=== PATIENT | male | born 1980 | race Two or more races ===

== ENCOUNTER 2017-02-12 13:12 | Inpatient (IN) | payer OTHER ==
--- NOTE | 2017-02-12 13:47 | PN ---
[facility] Progress Note Note: 36 Y/O H/M "WALKED" INTO [facility] ADMISSION WAITING AREA AND BECAME VERY LETHARGIC, UNABLE TO STAND ON HIS FEET WITH DECREASED ALERTNESS. STATES HE IS HERE TO DETOX. RESPONDED ON COMMAND, VERY SLOWLY. PT HAS A HX OF SEIZURE AND ON KEPPRA. Vital Signs Temperature 99.2 F 02/12/17 13:48 Pulse Rate 96 H 02/12/17 13:48 Respiratory Rate 16 02/12/17 13:48 Blood Pressure 125/74 02/12/17 13:48 O2 Sat by Pulse Oximetry (%) 96 HEAD:AREA OF BRUISE WITH SOME SWELLING AND FRESH DRY BLOOD AT BACK OF HEAD. ZHANG=0.426 IMPRESSION: ALCOHOL INTOXICATION R/O HEAD TRUAMA PLAN:TRANSFER PT TO [facility] ER VIA AMBULANCE FOR EVALUATION AND TREATMENT. SPOKE WITH RAMSEY LANDA AT THE ER WHO WILL ACCEPT THE PATIENT.
--- NOTE | 2017-02-12 21:29 | HP ---
CIWA Score - CIWA Score Nausea/Vomitin-Mild Nausea/No Vomiting Muscle Tremors: 3 Anxiety: 2 Agitation: 2 Paroxysmal Sweats: 3 Orientation: 1-Uncertain about Date Tacttile Disturbances: 0-None Auditory Disturbances: 0-None Visual Disturbances: 0-None Headache: 3-Moderate CIWA-Ar Total Score: 15 Admission ROS BHS - HPI Chief Complaint: WITHDRAWAL SYMPTOMS Allergies/Adverse Reactions: Allergies Allergy/AdvReac Type Severity Reaction Status Date / Time No Known Allergies Allergy Verified 02/12/17 14:10 History of Present Illness: 36 Y.O. MAN RETURNS FROM [facility]. HE WAS BEING EVALUATED FOR A HEAD INJURY AFTER A RECENT FALL AND WAS MEDICALLY CLEARED TO INITIATE DETOX. THE PT. LAST COMPLETED DETOX HERE IN 06/2016. HE REPORTS HIS LONGEST PERIOD OF SOBRIETY HAS BEEN 1 YEAR. Exam Limitations: Intoxication - Ebola screening Have you traveled outside of the country in the last 21 days: No Have you had contact with anyone from an Ebola affected area: No Have you been sick,other than usual withdrawal symptoms: No Do you have a fever: No - Review of Systems Constitutional: Loss of Appetite, Unintentional Wgt. Loss EENT: reports: Blurred Vision, Tearing Respiratory: reports: No Symptoms reported Cardiac: reports: Palpitations GI: reports: Diarrhea, Poor Appetite : reports: No Symptoms Reported Musculoskeletal: reports: No Symptoms Reported Integumentary: reports: No Symptoms Reported Neuro: reports: Headache, Seizure (LAST SZ 1 YEAR AGO) Endocrine: reports: No Symptoms Reported Hematology: reports: No Symptoms Reported Psychiatric: reports: Depressed Other Systems: Reviewed and Negative Patient History - Patient Medical History Hx Anemia: No Hx Asthma: Yes (childhood asthma.) Hx Chronic Obstructive Pulmonary Disease (COPD): No Hx Cancer: No Hx Cardiac Disorders: No Hx Congestive Heart Failure: No Hx Hypertension: No Hx Hypercholesterolemia: No Hx Pacemaker: No HX Cerebrovascular Accident: Yes (MINI STROKE IN 2009 WITH SLIGHT WEAKNESS TO LEFT SIDE) Hx Seizures: Yes (seizure disorder on meds. Last in 01/28) Hx Dementia: No Hx Diabetes: No Hx Gastrointestinal Disorders: No Hx Liver Disease: No Hx Genitourinary Disorders: No Hx Sexually Transmitted Disorders: No Hx Renal Disease (ESRD): No Hx Thyroid Disease: No Hx Human Immunodeficiency Virus (HIV): No (NEGATIVE HX LAST 06/29) Hx Hepatitis C: No Hx Depression: Yes Hx Suicide Attempt: No Hx Bipolar Disorder: No Hx Schizophrenia: No - Patient Surgical History Past Surgical History: Yes Hx Neurologic Surgery: No Hx Cataract Extraction: No Hx Cardiac Surgery: No Hx Lung Surgery: No Hx Breast Surgery: No Hx Breast Biopsy: No Hx Abdominal Surgery: No Hx Appendectomy: No Hx Cholecystectomy: No Hx Genitourinary Surgery: No Hx Section: No Hx Orthopedic Surgery: No Other Surgical History: IVC filter in 2011 Anesthesia Reaction: No - PPD History Previous Implant?: Yes Documented Results: Negative w/proof Date: 06/21/15 Results: 0 mm PPD to be Administered?: Yes - Reproductive History Patient is a Female of Child Bearing Age (11 -55 yrs old): No - Smoking Cessation Smoking history: Current some day smoker Have you smoked in the past 12 months: No Aproximately how many cigarettes per day: 1 Hx Chewing Tobacco Use: No Initiated information on smoking cessation: Yes 'Breaking Loose' booklet given: 02/12/17 - Substance & Tx. History Hx Alcohol Use: Yes Hx Substance Use: No Substance Use Type: Alcohol Hx Substance Use Treatment: Yes (DETOX: 06/2015 REHAB: 07/2014) - Substances Abused Alcohol Route: Oral Frequency: Daily Amount used: 1 PINT OF LIQUOR Age of first use: 11 Date of Last Use: 02/12/17 Family Disease History - Family Disease History Family Disease History: Other: Grandparent (HTN) Admission Physical Exam BHS - Vital Signs Vital Signs: Vital Signs - 24 hr 02/12/17 13:48 Temperature 99.2 F Pulse Rate 96 H Respiratory 16 Rate Blood Pressure 125/74 - Physical General Appearance: Yes: Disheveled, Alcohol on Breath, Intoxicated, Tremorous, Sweating, Anxious HEENTM: Yes: Hearing grossly Normal, Normocephalic, Normal Voice Respiratory: Yes: Chest Non-Tender, Lungs Clear, Normal Breath Sounds, No Respiratory Distress, No Accessory Muscle Use Neck: Yes: No masses,lesions,Nodules, Trachea in good position Breast: Yes: Breast Exam Deferred Cardiology: Yes: Regular Rhythm, Regular Rate Abdominal: Yes: Non Tender, Flat, Soft Genitourinary: Yes: Other (NO COMPLAINTS REPORTED) Back: Yes: Normal Inspection Musculoskeletal: Yes: Other (UNSTEADY GAIT) Extremities: Yes: Normal Inspection, Normal Range of Motion, Tremors Neurological: Yes: Alert, Normal Response Integumentary: Yes: Normal Color, Dry, Warm Lymphatic: Yes: Within Normal Limits - Diagnostic (1) Alcohol dependence with uncomplicated withdrawal Current Visit: Yes Status: Chronic (2) History of pulmonary embolism Current Visit: Yes Status: Chronic (3) Intoxication Current Visit: Yes Status: Acute (4) Nicotine dependence Current Visit: Yes Status: Chronic (5) Old cerebrovascular accident (CVA) without late effect Current Visit: Yes Status: Inactive (6) S/P IVC filter Current Visit: Yes Status: Inactive (7) Seizure disorder Current Visit: Yes Status: Chronic (8) History of fall Current Visit: Yes Status: Acute Cleared for Admission [facility] - Detox or Rehab [facility] Level of Care: Medically Managed Detox Regimen/Protocol: Librium [facility] Breath Alcohol Content Breath Alcohol Content: 0.298
[2017-02-12 21:52] VITALS: BMI 28.3
[2017-02-12] MEDS ORDERED: P-EPHED 60MG/TRIPROLIDI 2.5MG TABLET PO PRN (21:57)
[2017-02-12] MEDS ORDERED: ACETAMINOPHEN 325 MG TABLET (FP) PO PRN (21:57)
[2017-02-12] MEDS ORDERED: chlordiazePOXIDE HCL 25 MG CAPSULE PO PRN (21:57)
[2017-02-12] MEDS ORDERED: MAG HYDROX/AL HYDROX/SIMETH 30 ML UNIT-DOSE CUP PO PRN (21:57)
[2017-02-12] MEDS ORDERED: hydrOXYzine PAMOATE 50 MG CAPSULE (FP) PO PRN (21:57)
[2017-02-12] MEDS ORDERED: guaiFENesin/D-METHORPHAN HB 10 ML UNIT-DOSE CUPS PO PRN (21:57)
[2017-02-12] MEDS ORDERED: diphenhydrAMINE HCL 50 MG CAPSULE PO PRN (21:57)
[2017-02-12] MEDS ORDERED: IBUPROFEN 400 MG TABLET (FP) PO PRN (21:57)
[2017-02-12] MEDS ORDERED: MAGNESIUM CITRATE 300 ML BOTTLE PO PRN (21:57)
[2017-02-12] MEDS ORDERED: MAGNESIUM HYDROX 2400MG/30ML ORAL SUSPENSION 30 ML CUP PO PRN (21:57)
[2017-02-12] MEDS ORDERED: chlordiazePOXIDE HCL 25 MG CAPSULE PO ONE (21:57)
[2017-02-12] MEDS ORDERED: NICOTINE POLACRILEX 2 MG GUM BC PRN (21:57)
[2017-02-12] MEDS ORDERED: MENTHOL/PHENOL 1 EACH UD MM PRN (21:57)
[2017-02-12] MEDS ORDERED: LOPERAMIDE HCL 2 MG CAPSULE PO PRN (21:57)
[2017-02-12] MEDS ORDERED: THIAMINE HCL 100 MG TABLET (FP) PO SCH (22:00)
[2017-02-12] MEDS: levETIRAcetam 500 MG TABLET (FP) PO SCH (23:23)
[2017-02-12] MEDS: chlordiazePOXIDE HCL 25 MG CAPSULE PO SCH (23:28)
[2017-02-13 00:30] LABS: URINE APPEARANCE CLEAR; URINE BILIRUBIN NEGATIVE (NEGATIVE); URINE BLOOD NEGATIVE (NEGATIVE); URINE COLOR LTYELLOW; URINE GLUCOSE (UA) NEGATIVE (NEGATIVE); URINE KETONE NEGATIVE (NEGATIVE); URINE LEUK ESTERASE NEGATIVE (NEGATIVE); URINE NITRITE NEGATIVE (NEGATIVE); URINE PROTEIN NEGATIVE (NEGATIVE); URINE UROBILINOGEN NEGATIVE mg/dL (0.2-1.0)
[2017-02-13] MEDS: chlordiazePOXIDE HCL 25 MG CAPSULE PO SCH ×2 (07:35→10:35)
--- NOTE | 2017-02-13 09:17 | EKG ---
Test Reason : Blood Pressure : / mmHG Vent. Rate : 098 BPM Atrial Rate : 098 BPM P-R Int : 130 ms QRS Dur : 074 ms QT Int : 332 ms P-R-T Axes : 056 021 021 degrees QTc Int : 423 ms NORMAL SINUS RHYTHM POSSIBLE LEFT ATRIAL ENLARGEMENT NONSPECIFIC T WAVE ABNORMALITY ABNORMAL ECG NO PREVIOUS ECGS AVAILABLE Confirmed by LONG SOLIZ MD ([id number]) on 02/13/2017 9:16:59 AM Referred By: Confirmed By:LONG SOLIZ MD
[2017-02-13] MEDS ORDERED: PRENATAL VITAMINS W/ FOLIC ACID TABLET (FP) PO SCH (10:00)
[2017-02-13 10:20] LABS: MCH 30.3 pg (25.7-33.7); MEAN CELL VOLUME 91.8 fl (80-96); MEAN PLT VOLUME 6.8 fl (7.5-11.1); PLATELET COUNT 428 K/MM3 (134-434); WHITE BLOOD COUNT 5.2 K/mm3 (4.0-10.0)
[2017-02-13] MEDS: levETIRAcetam 500 MG TABLET (FP) PO SCH (10:36)
[2017-02-13 10:52] LABS: ALBUMIN 3.8 g/dl (3.4-5.0); ALK PHOS 93 U/L (45-117); ANION GAP 9 (8-16); BILIRUBIN,TOTAL 0.3 mg/dL (0.2-1.0); CALCIUM 8.8 mg/dL (8.5-10.1); CO2 30 mmol/L (21-32); CREATININE 1.1 mg/dL (0.7-1.3); GLUCOSE,RANDOM 83 mg/dL (74-106); SGOT/AST 29 U/L (15-37); SGPT/ALT 56 U/L (12-78); TOT PROT 7.6 g/dl (6.4-8.2)
--- NOTE | 2017-02-13 11:13 | PN ---
S CIWA - CIWA Score Nausea/Vomitin Muscle Tremors: 4-Moderate,w/Arms Extend Anxiety: 3 Agitation: 3 Paroxysmal Sweats: 3 Orientation: 0-Oriented Tacttile Disturbances: 1-Very Mild Itch/Numbness Auditory Disturbances: 0-None Visual Disturbances: 0-None Headache: 1-Very Mild CIWA-Ar Total Score: 18 BHS Progress Note (SOAP) Subjective: nasuea, sweats, interrupted, sleep, anxeity, tremors Objective: 02/13/17 11:12 Vital Signs - 8 hr 02/13/17 02/13/17 02/13/17 04:00 06:36 09:43 Temperature 97.8 F 96.6 F L Pulse Rate 92 H 90 Respiratory 18 18 20 Rate Blood Pressure 106/64 130/73 Laboratory Tests 02/13/17 02/13/17 02/13/17 00:01 07:00 07:00 WBC 5.2 RBC 4.63 Hgb 14.0 Hct 42.5 MCV 91.8 MCH 30.3 MCHC 33.0 RDW 15.0 Plt Count 428 MPV 6.8 L Sodium 144 Potassium 4.3 Chloride 105 Carbon Dioxide 30 Anion Gap 9 BUN 10 Creatinine 1.1 Creat Clearance w eGFR > 60 Random Glucose 83 Calcium 8.8 Total Bilirubin 0.3 AST 29 ALT 56 Alkaline Phosphatase 93 Total Protein 7.6 Albumin 3.8 Urine Color Ltyellow Urine Appearance Clear Urine pH 6.0 Ur Specific [place] 1.015 Urine Protein Negative Urine Glucose (UA) Negative Urine Ketones Negative Urine Blood Negative Urine Nitrite Negative Urine Bilirubin Negative Urine Urobilinogen Negative Ur Leukocyte Esterase Negative Assessment: 02/13/17 11:13 withdrawal sx Plan: cont detox, fluids, encourage ambulation
--- NOTE | 2017-02-13 11:33 | CONSULT ---
[facility] Psychiatric Consult - Data Date of interview: 02/13/17 Admission source: [facility] Identifying data: Readmission to [facility] for this 36 y/o male seeking detox treatment on for alcohol dependence.Patient is single,a father of one,domiciled,unemployed and supported on welfare. Substance Abuse History: Confirmed by the patient in this interview. Smoking Cessation. Smoking history: Current some day smoker. Have you smoked in the past 12 months: No. Aproximately how many cigarettes per day: 1. Hx Chewing Tobacco Use: No. Initiated information on smoking cessation: Yes. 'Breaking Loose' booklet given: 02/12/17. - Substance & Tx. History. Hx Alcohol Use: Yes. Hx Substance Use: No. Substance Use Type: Alcohol. Hx Substance Use Treatment: Yes (DETOX: 06/2015 REHAB: 07/2014). - Substances Abused. Alcohol. Route: Oral. Frequency: Daily. Amount used: 1 PINT OF LIQUOR. Age of first use: 11. Date of Last Use: 02/12/17 Medical History: Remarkable for a history of mild CVA with left-sided weakness ( 2009),pulmonary embolism (IVC filter in place since 2011),seizure disorder and bronchial asthma. Psychiatric History: Diagnosed with MDD.Treated as an inpatient at [facility] (2012) and another institution (2014).Mr Hernandez gets psychiatric outpatient services at [facility].Managed with a regimen of effexor XR 150 mg po daily and remeron (dose unknown).Patient denies history of suicide attempts. Physical/Sexual Abuse/Trauma History: Patient denies. Mental Status Exam - Mental Status Exam Alert and Oriented to: Time, Place, Person Cognitive Function: Good Patient Appearance: Well Groomed Mood: Nervous, Withdrawn, Anxious Affect: Mood Congruent, Constricted Patient Behavior: Fatigued, Appropriate, Cooperative Speech Pattern: Clear Voice Loudness: Normal Thought Process: Goal Oriented Thought Disorder: Not Present Hallucinations: Denies Suicidal Ideation: Denies Homicidal Ideation: Denies Insight/Judgement: Poor Sleep: Poorly, Difficulty falling asleep Appetite: Good Muscle strength/Tone: Normal Gait/Station: Normal Psychiatric Findings - Problem List ([place] 1, 2,3) (1) Alcohol dependence with uncomplicated withdrawal Current Visit: Yes Status: Acute (2) Nicotine dependence Current Visit: Yes Status: Acute (3) MDD (major depressive disorder) Current Visit: Yes Status: Chronic (4) History of pulmonary embolism Current Visit: Yes Status: Chronic (5) Seizure disorder Current Visit: Yes Status: Chronic (6) Old cerebrovascular accident (CVA) without late effect Current Visit: Yes Status: Inactive (7) S/P IVC filter Current Visit: Yes Status: Inactive - Initial Treatment Plan Initial Treatment Plan: Psychoeducation.Detoxification in progress.Medications : effexor XR 75 mg po daily + remeron 15 mg po hs.Side effects/benefits discussed with patient.He agrees to follow this careplan.Pharmacy claims reviewed for verification of medications : last scripts for both drugs were issued on 07/19/16 at [facility] # [id number].Questionable adherence to OPD care/ medications.Observation.
--- NOTE | 2017-02-13 13:46 | PN ---
[facility] Progress Note Note: Patient refusing to stay and complete detox because he has family matters to attend to and will sign out AMA, risks and benefits of not completing detoxfication regimen as prescribed discussed with patient.
--- NOTE | 2017-02-13 13:52 | DS ---
[facility] Detox Discharge Summary Admission Date: 02/12/17 Discharge Date: 02/13/17 - History Present History: Alcohol Dependence Pertinent Past History: anxiety, depression, insomnia, nicotine dependence - Physical Exam Results Vital Signs: Vital Signs Temperature 96.6 F L 02/13/17 09:43 Pulse Rate 90 02/13/17 09:43 Respiratory Rate 20 02/13/17 09:43 Blood Pressure 130/73 02/13/17 09:43 O2 Sat by Pulse Oximetry (%) Pertinent Admission Physical Exam Findings: withdrawal sx - Treatment Hospital Course: Detox Protocol Followed, Detoxed Safely Patient has Accepted a Rehab Referral to: no - Medication Discharge Medications: Ambulatory Orders Folic Acid - 1 mg PO DAILY #30 tablet 07/24/14 Thiamine HCl [Vitamin B1 -] 100 mg PO HS #30 tablet 07/31/14 Venlafaxine HCl ER [Effexor Xr -] 150 mg PO DAILY #30 cap.er.24h 06/20/15 Aspirin [ASA -] 81 mg PO DAILY #30 tab.chew 06/23/15 Levetiracetam [Keppra -] 750 mg PO BID #60 tablet 06/23/15 Rivaroxaban [Xarelto -] 20 mg PO DAILY #30 tablet 06/23/15 Mirtazapine [Remeron -] 15 mg PO HS #30 tablet 02/13/17 Venlafaxine HCl ER [Effexor Xr -] 75 mg PO DAILY #30 cap.er.24h 02/13/17 - Diagnosis (1) Alcohol dependence with uncomplicated withdrawal Current Visit: Yes Status: Chronic (2) History of fall Current Visit: Yes Status: Acute (3) Intoxication Current Visit: Yes Status: Acute (4) Nicotine dependence Current Visit: Yes Status: Chronic Qualifiers: Nicotine product type: cigarettes (5) History of pulmonary embolism Current Visit: Yes Status: Chronic (6) MDD (major depressive disorder) Current Visit: Yes Status: Chronic (7) Seizure disorder Current Visit: Yes Status: Chronic (8) Old cerebrovascular accident (CVA) without late effect Current Visit: No Status: Chronic (9) S/P IVC filter Current Visit: No Status: Chronic (10) Insomnia Current Visit: No Status: Acute - AMA Did Patient Leave Against Medical Advice: Yes
[2017-02-13 14:25] VITALS: BP 115/78; PULSE 110; TEMP 99.5
[2017-02-13] MEDS ORDERED: MIRTAZAPINE 15 MG TABLET (FP) PO SCH (22:00)
[2017-02-13] MEDS ORDERED: chlordiazePOXIDE HCL 25 MG CAPSULE PO SCH (23:00)
[2017-02-14] MEDS ORDERED: VENLAFAXINE HCL 75 MG E.R. CAPSULES (FP) PO SCH (10:00)
[2017-02-14] MEDS ORDERED: chlordiazePOXIDE 5 MG CAPSULE PO SCH (23:00)
[2017-02-15] MEDS ORDERED: chlordiazePOXIDE HCL 10 MG CAPSULE PO SCH (23:00)
== END 2017-02-13 14:10 | disposition left against medical advice (07) | DRG 770 ==
LOC: YASAS 13:12 → Y3N 21:47
PROVIDERS: ADMIT Internal Medicine Addiction Medicine; ATTEND Internal Medicine Addiction Medicine
PROC: HZ2ZZZZ Detoxification Services for Substance Abuse Treatment (ICD-10-PCS; principal; 2017-02-13)
DX: F10.230 Alcohol dependence with withdrawal, uncomplicated (principal); F17.210 Nicotine dependence, cigarettes, uncomplicated; F33.9 Major depressive disorder, recurrent, unspecified; F41.8 Other specified anxiety disorders; G40.909 Epilepsy, unspecified, not intractable, without status epilepticus; I69.854 Hemiplegia and hemiparesis following other cerebrovascular disease affecting left non-dominant side; Z86.711 Personal history of pulmonary embolism; Z79.01 Long term (current) use of anticoagulants
CPT/HCPCS: 36415; 80053; 81003; 85027; 86593; 93005; 93010

== ENCOUNTER 2017-02-12 13:44 | Emergency (ER) | payer OTHER ==
[2017-02-12 14:10] VITALS: BMI 28.3
[2017-02-12] MEDS ORDERED: SODIUM CHLORIDE 0.9% 1000 ML INFUS.BAG IV ONE (14:18)
[2017-02-12 14:50] LABS: BASOPHIL 1.7 % (0-2.0); EOSINOPHIL 0.3 % (0-4.5); MCH 30.1 pg (25.7-33.7); MCHC 33.3 g/dl (32.0-35.9); MEAN CELL VOLUME 90.1 fl (80-96); MEAN PLT VOLUME 6.2 fl (7.5-11.1); NEUTROPHILS 49.5 % (42.8-82.8); PLATELET COUNT 417 K/MM3 (134-434); RDW 14.8 % (11.9-15.9); WHITE BLOOD COUNT 4.9 K/mm3 (4.0-10.0)
--- NOTE | 2017-02-12 15:03 | PDOC ---
History of Present Illness - General Chief Complaint: Alcohol intoxication Stated Complaint: INTOX Time Seen by Provider: 02/12/17 13:51 History Source: Patient Exam Limitations: Intoxication - History of Present Illness Initial Comments: 02/12/17 15:03 CC: Fall + Intoxication Patient is a 36 y.o. male with a PMH of Seizure disorder, h/o CVA (with residual R sided weakness) who presents from [facility] for a concern for head trauma. As per [facility], patient fell yesterday (02/11) however as per patient he fell 10 days previous. Patient cannot recall what he was doing prior to the fall and denies any pre-fall confusion, lightheadedness, diaphoresis, chest pain or shortness of breath. Past History - Past Medical History Allergies/Adverse Reactions: Allergies Allergy/AdvReac Type Severity Reaction Status Date / Time No Known Allergies Allergy Verified 02/12/17 14:10 Home Medications: Ambulatory Orders Folic Acid - 1 mg PO DAILY #30 tablet 07/24/14 Thiamine HCl [Vitamin B1 -] 100 mg PO HS #30 tablet 07/31/14 Venlafaxine HCl ER [Effexor Xr -] 150 mg PO DAILY #30 cap.er.24h 06/20/15 Aspirin [ASA -] 81 mg PO DAILY #30 tab.chew 06/23/15 Levetiracetam [Keppra -] 750 mg PO BID #60 tablet 06/23/15 Rivaroxaban [Xarelto -] 20 mg PO DAILY #30 tablet 06/23/15 Anemia: No Asthma: Yes (childhood asthma.) Cardiac Disorders: No CVA: Yes (MINI STROKE IN 2009 WITH SLIGHT WEAKNESS TO LEFT SIDE) COPD: No Dementia: No Diabetes: No GI Disorders: No Disorders: No HTN: No Hypercholesterolemia: No Kidney Stones: No Liver Disease: No Suicide Attempt (Hx): No Seizures: Yes (seizure disorder on meds. Last in 01/28) Thyroid Disease: No - Surgical History Abdominal Surgery: No Appendectomy: No Cardiac Surgery: No Cholecystectomy: No Lung Surgery: No Neurologic Surgery: No Orthopedic Surgery: No - Reproductive History Testicular Surgery: No - Psycho/Social/Smoking Cessation Hx Anxiety: Yes Suicidal Ideation: No Smoking History: Never smoked Have you smoked in the past 12 months: No Number of Cigarettes Smoked Daily: 1 'Breaking Loose' booklet given: 07/11/14 Hx Alcohol Use: Yes (vodka daily) Drug/Substance Use Hx: No Substance Use Type: Alcohol Hx Substance Use Treatment: Yes *Physical Exam - Vital Signs Last Vital Signs Temp Pulse Resp BP Pulse Ox 98.8 F 95 H 18 90/45 95 02/12/17 14:07 02/12/17 14:07 02/12/17 14:07 02/12/17 14:07 02/12/17 14:07 ED Treatment Course - LABORATORY CBC & Chemistry Diagram: 02/12/17 14:44 02/12/17 14:44 - ADDITIONAL ORDERS Additional order review: 02/12/17 14:44 RBC 4.60 MCV 90.1 MCHC 33.3 RDW 14.8 MPV 6.2 L D Neutrophils % 49.5 Lymphocytes % 43.2 H Monocytes % 5.3 Eosinophils % 0.3 Basophils % 1.7 - RADIOLOGY Radiology Studies Ordered: Category Date Time Status HEAD CT WITHOUT CONTRAST [CT] Stat CT Scan 02/12/17 14:13 Ordered Medical Decision Making - Medical Decision Making 02/12/17 18:45 Patient is a 36 y.o. male who presents from [facility] with a c/o recent fall. Patient is visibly intoxicated on PE (smells of alcohol, dysmetria, slurred speech) PLAN 1. CT Head 2. Ethanol Level 3. CBC, BMP CT head showed chronic subdural hematoma. Dr. Sapp, Neurosurgery,reviewed patient's CT scans and cleared patient for discharge to [facility] rehabilitation. As patient provided mixed history of fall and prior evaluation , [facility] ED was contacted *DC/Admit/Observation/Transfer Diagnosis at time of Disposition: Intoxication - Discharge Dispostion Disposition: RESIDENTIAL FACILITY Condition at time of disposition: Good Admit: No - Patient Instructions Additional Instructions: You were evaluated in the Emergency Department today for a fall. Please return to the Emergency Department should you experience chest pain, shortness of breath, confusion or severe headache.
[2017-02-12 15:16] LABS: ALBUMIN 4.3 g/dl (3.4-5.0); ALK PHOS 93 U/L (45-117); ANION GAP 10 (8-16); BILIRUBIN,TOTAL 0.3 mg/dL (0.2-1.0); CALCIUM 8.7 mg/dL (8.5-10.1); CO2 29 mmol/L (21-32); CREATININE 1.1 mg/dL (0.7-1.3); GLUCOSE,RANDOM 96 mg/dL (74-106); SGOT/AST 29 U/L (15-37); SGPT/ALT 61 U/L (12-78); TOT PROT 7.8 g/dl (6.4-8.2)
--- NOTE | 2017-02-12 17:46 | PDOC ---
History of Present Illness - General Chief Complaint: Alcohol intoxication Stated Complaint: INTOX Time Seen by Provider: 02/12/17 13:51 Past History - Past Medical History Allergies/Adverse Reactions: Allergies Allergy/AdvReac Type Severity Reaction Status Date / Time No Known Allergies Allergy Verified 02/12/17 14:10 Home Medications: Ambulatory Orders Folic Acid - 1 mg PO DAILY #30 tablet 07/24/14 Thiamine HCl [Vitamin B1 -] 100 mg PO HS #30 tablet 07/31/14 Venlafaxine HCl ER [Effexor Xr -] 150 mg PO DAILY #30 cap.er.24h 06/20/15 Aspirin [ASA -] 81 mg PO DAILY #30 tab.chew 06/23/15 Levetiracetam [Keppra -] 750 mg PO BID #60 tablet 06/23/15 Rivaroxaban [Xarelto -] 20 mg PO DAILY #30 tablet 06/23/15 Anemia: No Asthma: Yes (childhood asthma.) Cardiac Disorders: No CVA: Yes (MINI STROKE IN 2009 WITH SLIGHT WEAKNESS TO LEFT SIDE) COPD: No Dementia: No Diabetes: No GI Disorders: No Disorders: No HTN: No Hypercholesterolemia: No Kidney Stones: No Liver Disease: No Suicide Attempt (Hx): No Seizures: Yes (seizure disorder on meds. Last in 01/28) Thyroid Disease: No - Surgical History Abdominal Surgery: No Appendectomy: No Cardiac Surgery: No Cholecystectomy: No Lung Surgery: No Neurologic Surgery: No Orthopedic Surgery: No - Reproductive History Testicular Surgery: No - Psycho/Social/Smoking Cessation Hx Anxiety: Yes Suicidal Ideation: No Smoking History: Never smoked Have you smoked in the past 12 months: No Number of Cigarettes Smoked Daily: 1 'Breaking Loose' booklet given: 07/11/14 Hx Alcohol Use: Yes (vodka daily) Drug/Substance Use Hx: No Substance Use Type: Alcohol Hx Substance Use Treatment: Yes *Physical Exam - Vital Signs Last Vital Signs Temp Pulse Resp BP Pulse Ox 98.8 F 95 H 18 90/45 95 02/12/17 14:07 02/12/17 14:07 02/12/17 14:07 02/12/17 14:07 02/12/17 14:07
--- NOTE | 2017-02-12 18:04 | PDOC ---
Attending Attestation - Resident Resident Name: Lisa Judd - ED Attending Attestation I have performed the following: I have examined & evaluated the patient, The case was reviewed & discussed with the resident, I agree w/resident's findings & plan, Exceptions are as noted - HPI HPI: 02/12/17 18:13 36 M with h/o seizure d/o, ETOH abuse presents to ER with head injury. [facility], where he was going for detox from alcohol. Pt arrived intoxicated and found to have an abrasion on his head, so he was sent here for evaluation. Pt states that he fell 10 days ago and was initially evaluated at [facility], where he was told he had "bleeding" in his brain. Pt states that he was discharged. Denies any injuries since then. Pt denies SQUIRES/N/V. Denies weakness/numbness/tingling in any extremity. No slurred speech. Denies any recent seizures, no tongue biting, no incontinence. Pt reports drinking 1 pint vodka each day, last drank this morning. - Physicial Exam PE: 02/12/17 18:26 "GENERAL: Awake, intoxicated, in no acute distress HEAD: small abrasion posterior occiput EYES: PERRLA, EOMI, sclera anicteric, conjunctiva clear ENT: Auricles normal inspection, hearing grossly normal, nares patent, oropharynx clear without exudates. Moist mucosa NECK: Normal ROM, supple, no lymphadenopathy, JVD, or masses LUNGS: Breath sounds equal, clear to auscultation bilaterally. No wheezes, and no crackles HEART: Regular rate and rhythm, normal S1 and S2, no murmurs, rubs or gallops ABDOMEN: Soft, nontender, normoactive bowel sounds. No guarding, no rebound. No masses EXTREMITIES: Normal range of motion, no edema. No clubbing or cyanosis. No cords, erythema, or tenderness NEUROLOGICAL: Cranial nerves II through XII grossly intact. 5/5 strength and sensation in all extremities SKIN: Warm, Dry, normal turgor, no rashes or lesions noted. " - Medical Decision Making 02/12/17 18:27 36 M with seizure d/o and ETOH abuse presents to ER with head injury. - CTH shows subacute vs chronic subdural hematoma - Called [facility] ER, who report that pt was seen in their ER 2 days ago for fall and found to have a subdural. Pt was discharged. - Neurosurgeon pulmonary physical therapist, Dr. Elvis Beauchamp, who does not recommend any neurosurgical intervention at this time 02/12/17 18:49 Pt reassessed, is now awake, alert, and ambulatory without assistance. Pt has stable gait. Is eating meal tray and tolerating PO. Denies any SQUIRES/N/V. No signs of withdrawal. Pt clinically sober for DC. Will have security sales consultant pt back to [facility].
[2017-02-12 19:51] VITALS: BP 107/68; PULSE 76; TEMP 98.2
== END 2017-02-12 19:15 ==
LOC: JER 13:44
PROC: 3E0337Z Introduction of Electrolytic and Water Balance Substance into Peripheral Vein, Percutaneous Approach (ICD-10-PCS; principal; 2017-02-12)
DX: F10.120 Alcohol abuse with intoxication, uncomplicated (principal); J45.909 Unspecified asthma, uncomplicated; I69.398 Other sequelae of cerebral infarction
CPT/HCPCS: 36415; 70450-TC; 80053; 80185; 80307; 85025; 99283-25

== ENCOUNTER 2017-06-09 14:16 | Inpatient (IN) | payer OTHER ==
[2017-06-09 17:18] VITALS: BMI 28.3
--- NOTE | 2017-06-09 20:20 | HP ---
CIWA Score - CIWA Score Nausea/Vomitin Muscle Tremors: 5 Anxiety: 4-Mod. Anxious/Guarded Agitation: 4-Moderately Restless Paroxysmal Sweats: 3 Orientation: 0-Oriented Tacttile Disturbances: 3-Moderate Itch/Numb/Burn Auditory Disturbances: 0-None Visual Disturbances: 0-None Headache: 2-Mild CIWA-Ar Total Score: 24 Admission ROS BHS - HPI Chief Complaint: C/O WITHDRAWAL SX'S. SEEKING DETOX FOR HIS ALCOHOL DEPENDENCE. Allergies/Adverse Reactions: Allergies Allergy/AdvReac Type Severity Reaction Status Date / Time No Known Allergies Allergy Verified 06/09/17 19:02 History of Present Illness: 36 Y.O MALE WITH HX/O ETOH DEPENDENCE SEEKING DETOX. TXMENT. CLIENT IS KNOWN TO THIS DETOX. LAST HERE 02/2017. HE HAS BEEN REFERRED BY [facility] ER AFTER PRESENTING THERE WITH WITHDRAWAL SX'S. CLIENT DENIES ANY DETOX TXMENT SINCE HIS LAST ADMISSION HERE. REPORTS LONGEST CLEAN TIME 8 WEEKS.UTOX + BZO BUT CLIENT DENIES USE. Exam Limitations: Intoxication - Ebola screening Have you traveled outside of the country in the last 21 days: No Have you had contact with anyone from an Ebola affected area: No Have you been sick,other than usual withdrawal symptoms: No Do you have a fever: No - Review of Systems Constitutional: Chills, Loss of Appetite, Night Sweats, Changes in sleep EENT: reports: Blurred Vision (FAR SIDED) Respiratory: reports: No Symptoms reported Cardiac: reports: No Symptoms Reported GI: reports: Nausea, Poor Appetite, Poor Fluid Intake : reports: No Symptoms Reported Musculoskeletal: reports: No Symptoms Reported Integumentary: reports: No Symptoms Reported Neuro: reports: Seizure (R/T ETOH WITHDRAWAL) Endocrine: reports: No Symptoms Reported Hematology: reports: Blood Clots (HX/O PE IN 2008), Easy Bruising (R/T DRIKING AND HX/O XARELTO) Psychiatric: reports: Anxious, Depressed Other Systems: Reviewed and Negative Patient History - Patient Medical History Hx Anemia: No Hx Asthma: Yes (childhood asthma.) Hx Chronic Obstructive Pulmonary Disease (COPD): No Hx Cancer: No Hx Cardiac Disorders: No Hx Congestive Heart Failure: No Hx Hypertension: No Hx Hypercholesterolemia: No Hx Pacemaker: No HX Cerebrovascular Accident: Yes (MINI STROKE IN 2009 WITH SLIGHT WEAKNESS TO LEFT SIDE) Hx Seizures: Yes (ON KEPPRA) Hx Dementia: No Hx Diabetes: No Hx Gastrointestinal Disorders: No Hx Liver Disease: No Hx Genitourinary Disorders: No Hx Sexually Transmitted Disorders: No Hx Renal Disease (ESRD): No Hx Thyroid Disease: No Hx Human Immunodeficiency Virus (HIV): No Hx Hepatitis C: No Hx Depression: Yes (DENIES SI/HI) Hx Suicide Attempt: No Hx Bipolar Disorder: No Hx Schizophrenia: No Other Medical History: ANXIETY; HX/O OF PE X 3 - Patient Surgical History Past Surgical History: Yes Hx Neurologic Surgery: No Hx Cataract Extraction: No Hx Cardiac Surgery: Yes (IVC FILTER IN RT GROIN 2008) Hx Lung Surgery: No Hx Breast Surgery: No Hx Breast Biopsy: No Hx Abdominal Surgery: No Hx Appendectomy: No Hx Cholecystectomy: No Hx Genitourinary Surgery: No Hx Section: No Hx Orthopedic Surgery: No Other Surgical History: IVC filter in 2011 Anesthesia Reaction: No - PPD History Previous Implant?: Yes Documented Results: Negative w/proof Implanted On Prior [facility] Admission?: Yes Date: 03/13/17 Results: 0MM PPD to be Administered?: No - Smoking Cessation Smoking history: Never smoked Have you smoked in the past 12 months: No Aproximately how many cigarettes per day: 0 Cigars Per Day: 0 Hx Chewing Tobacco Use: No Initiated information on smoking cessation: No - Substance & Tx. History Hx Alcohol Use: Yes Hx Substance Use: Yes Substance Use Type: Alcohol Hx Substance Use Treatment: Yes ([facility]) - Substances Abused Alcohol Route: Oral Frequency: Daily Amount used: VODKA- 1 PT BEERS- 2BOTTLES Age of first use: 11 Date of Last Use: 06/09/17 Family Disease History - Family Disease History Family Disease History: Other: Grandparent (HTN), Father (alcphol,dsa,) Admission Physical Exam BHS - Vital Signs Vital Signs: Vital Signs - 24 hr 06/09/17 17:15 Temperature 97.2 F L Pulse Rate 98 H Respiratory 18 Rate Blood Pressure 115/71 - Physical General Appearance: Yes: Disheveled, Alcohol on Breath, Intoxicated, Tremorous, Sweating, Anxious, Other (MALODUROUS) HEENTM: Yes: EOMI, Normocephalic, BRUCE, Pharynx Normal, Other (MISSING TEETH) Respiratory: Yes: Chest Non-Tender, Lungs Clear, Normal Breath Sounds, No Respiratory Distress, No Accessory Muscle Use Neck: Yes: No masses,lesions,Nodules, Supple, Trachea in good position Breast: Yes: Breast Exam Deferred Cardiology: Yes: Regular Rhythm, S1, S2, Tachycardia Abdominal: Yes: Normal Bowel Sounds, Non Tender, Soft Genitourinary: Yes: Within Normal Limits Back: Yes: Normal Inspection Musculoskeletal: Yes: full range of Motion, Gait Steady Extremities: Yes: Normal Capillary Refill, Normal Range of Motion, Non-Tender, Tremors Neurological: Yes: services rep II-XII NML intact, Fully Oriented, Alert, Motor Strength 5/5 (L SIDED WEAKNESS), Other (S/P CVA WITH L SIDE WEAKNESS) Integumentary: Yes: Normal Color, Warm, Clammy Lymphatic: Yes: Within Normal Limits - Diagnostic (1) Alcohol dependence with uncomplicated withdrawal Current Visit: Yes Status: Chronic (2) Seizure disorder Current Visit: Yes Status: Chronic (3) Left-sided weakness Current Visit: Yes Status: Chronic (4) S/P IVC filter Current Visit: No Status: Chronic Cleared for Admission [facility] - Detox or Rehab [facility] Level of Care: Medically Managed Detox Regimen/Protocol: Librium Claeared for Rehab Admission: No [facility] Breath Alcohol Content Breath Alcohol Content: 0.287 Urine Drug Screen - Results Drug Screen Negative: No Urine Drug Screen Results: BZO-Benzodiazepines
[2017-06-09] MEDS ORDERED: ACETAMINOPHEN 325 MG TABLET (FP) PO PRN (20:35)
[2017-06-09] MEDS ORDERED: MENTHOL/PHENOL 1 EACH UD MM PRN (20:35)
[2017-06-09] MEDS ORDERED: MAGNESIUM HYDROX 2400MG/30ML ORAL SUSPENSION 30 ML CUP PO PRN (20:35)
[2017-06-09] MEDS ORDERED: IBUPROFEN 400 MG TABLET (FP) PO PRN (20:35)
[2017-06-09] MEDS ORDERED: guaiFENesin/D-METHORPHAN HB 10 ML UNIT-DOSE CUPS PO PRN (20:35)
[2017-06-09] MEDS ORDERED: MAGNESIUM CITRATE 300 ML BOTTLE PO PRN (20:35)
[2017-06-09] MEDS ORDERED: MAG HYDROX/AL HYDROX/SIMETH 30 ML UNIT-DOSE CUP PO PRN (20:35)
[2017-06-09] MEDS ORDERED: P-EPHED 60MG/TRIPROLIDI 2.5MG TABLET PO PRN (20:35)
[2017-06-09] MEDS ORDERED: LOPERAMIDE HCL 2 MG CAPSULE PO PRN (20:35)
[2017-06-09] MEDS ORDERED: chlordiazePOXIDE HCL 25 MG CAPSULE PO PRN (20:35)
[2017-06-09] MEDS: THIAMINE HCL 100 MG TABLET (FP) PO SCH (22:07)
[2017-06-09] MEDS: levETIRAcetam 500 MG TABLET (FP) PO SCH (22:07)
[2017-06-09] MEDS: chlordiazePOXIDE HCL 25 MG CAPSULE PO SCH (22:07)
[2017-06-09 23:23] LABS: URINE APPEARANCE CLEAR; URINE BILIRUBIN NEGATIVE (NEGATIVE); URINE BLOOD NEGATIVE (NEGATIVE); URINE COLOR LTYELLOW; URINE GLUCOSE (UA) 1+ (NEGATIVE); URINE KETONE NEGATIVE (NEGATIVE); URINE LEUK ESTERASE NEGATIVE (NEGATIVE); URINE NITRITE NEGATIVE (NEGATIVE); URINE PROTEIN NEGATIVE (NEGATIVE); URINE UROBILINOGEN NEGATIVE mg/dL (0.2-1.0)
[2017-06-10] MEDS: chlordiazePOXIDE HCL 25 MG CAPSULE PO SCH ×4 (05:23→22:15)
--- NOTE | 2017-06-10 07:41 | CONSULT ---
[facility] Psychiatric Consult - Data Date of interview: 06/10/17 Admission source: [facility] Identifying data: This is 36 years old male with psychioatric hospitalization history intoxicatyed with: Alcohol Substance Abuse History: - Smoking Cessation. Smoking history: Never smoked. Have you smoked in the past 12 months: No. Aproximately how many cigarettes per day: 0. Cigars Per Day: 0. Hx Chewing Tobacco Use: No. Initiated information on smoking cessation: No. - Substance & Tx. History. Hx Alcohol Use: Yes. Hx Substance Use: Yes. Substance Use Type: Alcohol. Hx Substance Use Treatment: Yes ([facility]). - Substances Abused. Alcohol. Route: Oral. Frequency: Daily. Amount used: VODKA- 1 PT BEERS- 2BOTTLES. Age of first use: 11. Date of Last Use: 06/09/17 Medical History: Patient reports history 9of Seizure, s/p IVC Filter installment Psychiatric History: Patoent reports history of mdd with most recent psyuchiatric hospitalization history on 2013 at [facility], denies suicidal attempts history. Reports taking prior to admission: Remeron 15mg po qhs. Effexor XR 150mg poqd Physical/Sexual Abuse/Trauma History: Denies Additional Comment: Remeron 15mg po qhs. Effexor XR 150mg poqd Mental Status Exam - Mental Status Exam Alert and Oriented to: Person Cognitive Function: Fair Patient Appearance: Unkempt Mood: Sad Affect: Flat Patient Behavior: Sedated Speech Pattern: Delayed Voice Loudness: Hypophonia Thought Process: Circumstantial Thought Disorder: Being Controlled Hallucinations: Denies Suicidal Ideation: Denies Homicidal Ideation: Denies Insight/Judgement: Fair Sleep: Difficulty falling asleep Appetite: Fair Muscle strength/Tone: Mild Hypotonicity Gait/Station: Shuffling Additional Comments: Remeron 15mg po qhs. Effexor XR 150mg poqd Psychiatric Findings - Problem List ([place] 1, 2,3) (1) Alcohol dependence with uncomplicated withdrawal Current Visit: Yes Status: Chronic (2) Alcohol dependence with uncomplicated intoxication Current Visit: No Status: Acute (3) Drug-induced mood disorder Current Visit: No Status: Acute (4) MDD (major depressive disorder) Current Visit: No Status: Chronic (5) Nicotine dependence Current Visit: No Status: Chronic Qualifiers: Nicotine product type: cigarettes (6) Old cerebrovascular accident (CVA) without late effect Current Visit: No Status: Chronic - Initial Treatment Plan Initial Treatment Plan: Remeron 15mg po qhs. Effexor XR 150mg poqd
--- NOTE | 2017-06-10 09:02 | PN ---
S CIWA - CIWA Score Nausea/Vomitin Muscle Tremors: 3 Anxiety: 3 Agitation: 3 Paroxysmal Sweats: 3 Orientation: 0-Oriented Tacttile Disturbances: 1-Very Mild Itch/Numbness Auditory Disturbances: 0-None Visual Disturbances: 0-None Headache: 1-Very Mild CIWA-Ar Total Score: 17 BHS Progress Note (SOAP) Subjective: nausea, sweats, interrutped sleep, anxiety, tremors Objective: 06/10/17 09:01 Vital Signs - 8 hr 06/10/17 06/10/17 06/10/17 01:30 02:00 02:30 Temperature Pulse Rate 92 H 91 H 91 H Respiratory 18 18 18 Rate Blood Pressure 06/10/17 06/10/17 06/10/17 03:00 03:30 04:00 Temperature Pulse Rate 90 90 93 H Respiratory 18 18 18 Rate Blood Pressure 06/10/17 06/10/17 06/10/17 04:30 05:00 05:30 Temperature Pulse Rate 93 H 86 86 Respiratory 18 18 18 Rate Blood Pressure 06/10/17 06/10/17 06/10/17 05:40 06:00 06:30 Temperature 97.6 F Pulse Rate 86 84 81 Respiratory 18 18 18 Rate Blood Pressure 112/65 Laboratory Tests 06/09/17 21:23 Urine Color Ltyellow Urine Appearance Clear Urine pH 5.0 Ur Specific [place] 1.031 Urine Protein Negative Urine Glucose (UA) 1+ H Urine Ketones Negative Urine Blood Negative Urine Nitrite Negative Urine Bilirubin Negative Urine Urobilinogen Negative labs still pending Assessment: 06/10/17 09:01 withdrawal sx - cont detox, fluids, encourage ambualtion
--- NOTE | 2017-06-10 10:09 | EKG ---
Test Reason : Blood Pressure : / mmHG Vent. Rate : 099 BPM Atrial Rate : 099 BPM P-R Int : 168 ms QRS Dur : 068 ms QT Int : 338 ms P-R-T Axes : 072 013 016 degrees QTc Int : 433 ms NORMAL SINUS RHYTHM POSSIBLE LEFT ATRIAL ENLARGEMENT SEPTAL INFARCT , AGE UNDETERMINED ABNORMAL ECG WHEN COMPARED WITH ECG OF 12-MAR-2017 08:22, VENT. RATE HAS INCREASED BY 36 BPM T WAVE INVERSION NO LONGER EVIDENT IN ANTERIOR LEADS Confirmed by CRYSTAL MERIDA MD ([id number]) on 06/10/2017 10:09:25 AM Referred By: Confirmed By:CRYSTAL MERIDA MD
[2017-06-10 10:11] LABS: ALBUMIN 3.6 g/dl (3.4-5.0); ANION GAP 8 (8-16); CALCIUM 9.2 mg/dL (8.5-10.1); CO2 28 mmol/L (21-32); GLUCOSE,RANDOM 72 mg/dL (74-106); SGOT/AST 26 U/L (15-37); SGPT/ALT 35 U/L (12-78)
[2017-06-10 10:14] LABS: ALK PHOS 81 U/L (45-117); BILIRUBIN,TOTAL 0.6 mg/dL (0.2-1.0); CREATININE 0.8 mg/dL (0.7-1.3); TOT PROT 7.1 g/dl (6.4-8.2)
[2017-06-10] MEDS: levETIRAcetam 500 MG TABLET (FP) PO SCH ×2 (10:36→22:15)
[2017-06-10] MEDS: VENLAFAXINE HCL 150 MG E.R. CAPSULE PO SCH (10:36)
[2017-06-10] MEDS: PRENATAL VITAMINS W/ FOLIC ACID TABLET (FP) PO SCH (10:37)
[2017-06-10] MEDS: ASPIRIN 81 MG CHEWABLE TABLETS PO SCH (10:37)
[2017-06-10 10:53] LABS: MCH 28.6 pg (25.7-33.7); MCHC 32.1 g/dl (32.0-35.9); MEAN PLT VOLUME 7.6 fl (7.5-11.1); PLATELET COUNT 286 K/MM3 (134-434); RDW 14.8 % (11.9-15.9); WHITE BLOOD COUNT 3.8 K/mm3 (4.0-10.0)
[2017-06-10 18:36] LABS: URINE LEUK ESTERASE Negative (NEGATIVE)
[2017-06-10] MEDS: MIRTAZAPINE 15 MG TABLET (FP) PO SCH (22:15)
[2017-06-10] MEDS: THIAMINE HCL 100 MG TABLET (FP) PO SCH (22:15)
[2017-06-11] MEDS: chlordiazePOXIDE HCL 25 MG CAPSULE PO SCH ×3 (05:49→17:49)
[2017-06-11] MEDS: ASPIRIN 81 MG CHEWABLE TABLETS PO SCH (10:13)
[2017-06-11] MEDS: VENLAFAXINE HCL 150 MG E.R. CAPSULE PO SCH (10:14)
[2017-06-11] MEDS: levETIRAcetam 500 MG TABLET (FP) PO SCH ×2 (10:14→22:32)
[2017-06-11] MEDS: PRENATAL VITAMINS W/ FOLIC ACID TABLET (FP) PO SCH (10:14)
--- NOTE | 2017-06-11 13:35 | PN ---
[facility] CIWA - CIWA Score Nausea/Vomitin Muscle Tremors: 3 Anxiety: 4-Mod. Anxious/Guarded Agitation: 4-Moderately Restless Paroxysmal Sweats: 3 Orientation: 0-Oriented Tacttile Disturbances: 0-None Auditory Disturbances: 0-None Visual Disturbances: 0-None Headache: 1-Very Mild CIWA-Ar Total Score: 17 BHS Progress Note (SOAP) Subjective: Sweating, nausea, anxious, tremor Objective: 06/11/17 13:33 Last Vital Signs Temp Pulse Resp BP Pulse Ox 96.9 F L 82 16 117/71 06/11/17 09:57 06/11/17 09:57 06/11/17 09:57 06/11/17 09:57 Laboratory Tests 06/09/17 06/10/17 06/10/17 21:23 07:54 07:54 WBC 3.8 L RBC 4.61 Hgb 13.2 Hct 41.1 MCV 89.0 MCH 28.6 MCHC 32.1 RDW 14.8 Plt Count 286 D MPV 7.6 Sodium 139 Potassium 3.9 Chloride 103 Carbon Dioxide 28 Anion Gap 8 BUN 7 D Creatinine 0.8 Creat Clearance w eGFR > 60 Random Glucose 72 L Calcium 9.2 Total Bilirubin 0.6 AST 26 ALT 35 Alkaline Phosphatase 81 Total Protein 7.1 Albumin 3.6 Urine Color Ltyellow Urine Appearance Clear Urine pH 5.0 Ur Specific [place] 1.031 Urine Protein Negative Urine Glucose (UA) 1+ H Urine Ketones Negative Urine Blood Negative Urine Nitrite Negative Urine Bilirubin Negative Urine Urobilinogen Negative Ur Leukocyte Esterase Negative RPR Titer 06/10/17 07:54 WBC RBC Hgb Hct MCV MCH MCHC RDW Plt Count MPV Sodium Potassium Chloride Carbon Dioxide Anion Gap BUN Creatinine Creat Clearance w eGFR Random Glucose Calcium Total Bilirubin AST ALT Alkaline Phosphatase Total Protein Albumin Urine Color Urine Appearance Urine pH Ur Specific [place] Urine Protein Urine Glucose (UA) Urine Ketones Urine Blood Urine Nitrite Urine Bilirubin Urine Urobilinogen Ur Leukocyte Esterase RPR Titer Nonreactive Labs noted Assessment: 06/11/17 13:33 Withdrawal symptoms Plan: Continue detox Encouraged to drink lots of water for hydration
[2017-06-11] MEDS: chlordiazePOXIDE 5 MG CAPSULE PO SCH (22:31)
[2017-06-11] MEDS: MIRTAZAPINE 15 MG TABLET (FP) PO SCH (22:32)
[2017-06-11] MEDS: THIAMINE HCL 100 MG TABLET (FP) PO SCH (22:32)
[2017-06-12] MEDS: chlordiazePOXIDE 5 MG CAPSULE PO SCH ×3 (06:15→17:33)
[2017-06-12] MEDS: VENLAFAXINE HCL 150 MG E.R. CAPSULE PO SCH (10:27)
[2017-06-12] MEDS: levETIRAcetam 500 MG TABLET (FP) PO SCH ×2 (10:27→22:18)
[2017-06-12] MEDS: ASPIRIN 81 MG CHEWABLE TABLETS PO SCH (10:27)
[2017-06-12] MEDS: PRENATAL VITAMINS W/ FOLIC ACID TABLET (FP) PO SCH (10:28)
--- NOTE | 2017-06-12 13:19 | PN ---
BHS Progress Note (SOAP) Subjective: Sweating, anxious, interrupted sleep Objective: 06/12/17 13:15 Last Vital Signs Temp Pulse Resp BP Pulse Ox 97.1 F L 82 18 118/75 06/12/17 10:00 06/12/17 10:00 06/12/17 10:00 06/12/17 10:00 Laboratory Tests 06/09/17 06/10/17 06/10/17 21:23 07:54 07:54 WBC 3.8 L RBC 4.61 Hgb 13.2 Hct 41.1 MCV 89.0 MCH 28.6 MCHC 32.1 RDW 14.8 Plt Count 286 D MPV 7.6 Sodium 139 Potassium 3.9 Chloride 103 Carbon Dioxide 28 Anion Gap 8 BUN 7 D Creatinine 0.8 Creat Clearance w eGFR > 60 Random Glucose 72 L Calcium 9.2 Total Bilirubin 0.6 AST 26 ALT 35 Alkaline Phosphatase 81 Total Protein 7.1 Albumin 3.6 Urine Color Ltyellow Urine Appearance Clear Urine pH 5.0 Ur Specific [place] 1.031 Urine Protein Negative Urine Glucose (UA) 1+ H Urine Ketones Negative Urine Blood Negative Urine Nitrite Negative Urine Bilirubin Negative Urine Urobilinogen Negative Ur Leukocyte Esterase Negative RPR Titer 06/10/17 07:54 WBC RBC Hgb Hct MCV MCH MCHC RDW Plt Count MPV Sodium Potassium Chloride Carbon Dioxide Anion Gap BUN Creatinine Creat Clearance w eGFR Random Glucose Calcium Total Bilirubin AST ALT Alkaline Phosphatase Total Protein Albumin Urine Color Urine Appearance Urine pH Ur Specific [place] Urine Protein Urine Glucose (UA) Urine Ketones Urine Blood Urine Nitrite Urine Bilirubin Urine Urobilinogen Ur Leukocyte Esterase RPR Titer Nonreactive Labs noted Assessment: 06/12/17 13:16 Withdrawal symptoms Plan: Continue detox Encouraged to drink lots of water
[2017-06-12] MEDS: THIAMINE HCL 100 MG TABLET (FP) PO SCH (22:17)
[2017-06-12] MEDS: chlordiazePOXIDE HCL 10 MG CAPSULE PO SCH (22:17)
[2017-06-12] MEDS: MIRTAZAPINE 15 MG TABLET (FP) PO SCH (22:18)
[2017-06-13] MEDS: chlordiazePOXIDE HCL 10 MG CAPSULE PO SCH ×2 (07:18→10:54)
[2017-06-13 10:46] VITALS: BP 119/71; PULSE 75; TEMP 95.9
[2017-06-13] MEDS: levETIRAcetam 500 MG TABLET (FP) PO SCH (10:52)
[2017-06-13] MEDS: ASPIRIN 81 MG CHEWABLE TABLETS PO SCH (10:52)
[2017-06-13] MEDS: PRENATAL VITAMINS W/ FOLIC ACID TABLET (FP) PO SCH (10:53)
[2017-06-13] MEDS: VENLAFAXINE HCL 150 MG E.R. CAPSULE PO SCH (10:53)
--- NOTE | 2017-06-13 11:44 | DS ---
[facility] Detox Discharge Summary Admission Date: 06/09/17 Discharge Date: 06/13/17 - History Present History: Alcohol Dependence Pertinent Past History: Asthma Seizures IVC filter to L groin - Physical Exam Results Vital Signs: Vital Signs Temperature 95.9 F L 06/13/17 10:00 Pulse Rate 75 06/13/17 10:00 Respiratory Rate 18 06/13/17 10:00 Blood Pressure 119/71 06/13/17 10:00 O2 Sat by Pulse Oximetry (%) Pertinent Admission Physical Exam Findings: Withdrawal symptoms Laboratory Last Values WBC 3.8 K/mm3 (4.0-10.0) L 06/10/17 07:54 RBC 4.61 M/mm3 (4.00-5.60) 06/10/17 07:54 Hgb 13.2 GM/dL (11.7-16.9) 06/10/17 07:54 Hct 41.1 % (35.4-49) 06/10/17 07:54 MCV 89.0 fl (80-96) 06/10/17 07:54 MCH 28.6 pg (25.7-33.7) 06/10/17 07:54 MCHC 32.1 g/dl (32.0-35.9) 06/10/17 07:54 RDW 14.8 % (11.9-15.9) 06/10/17 07:54 Plt Count 286 K/MM3 (134-434) D 06/10/17 07:54 MPV 7.6 fl (7.5-11.1) 06/10/17 07:54 Sodium 139 mmol/L (136-145) 06/10/17 07:54 Potassium 3.9 mmol/L (3.5-5.1) 06/10/17 07:54 Chloride 103 mmol/L (98-107) 06/10/17 07:54 Carbon Dioxide 28 mmol/L (21-32) 06/10/17 07:54 Anion Gap 8 (8-16) 06/10/17 07:54 BUN 7 mg/dL (7-18) D 06/10/17 07:54 Creatinine 0.8 mg/dL (0.7-1.3) 06/10/17 07:54 Creat Clearance w eGFR > 60 (>60) 06/10/17 07:54 Random Glucose 72 mg/dL (74-106) L 06/10/17 07:54 Calcium 9.2 mg/dL (8.5-10.1) 06/10/17 07:54 Total Bilirubin 0.6 mg/dL (0.2-1.0) 06/10/17 07:54 AST 26 U/L (15-37) 06/10/17 07:54 ALT 35 U/L (12-78) 06/10/17 07:54 Alkaline Phosphatase 81 U/L (45-117) 06/10/17 07:54 Total Protein 7.1 g/dl (6.4-8.2) 06/10/17 07:54 Albumin 3.6 g/dl (3.4-5.0) 06/10/17 07:54 Urine Color Ltyellow 06/09/17 21:23 Urine Appearance Clear 06/09/17 21:23 Urine pH 5.0 (5.0-8.0) 06/09/17 21:23 Ur Specific [place] 1.031 (1.001-1.035) 06/09/17 21:23 Urine Protein Negative (NEGATIVE) 06/09/17 21:23 Urine Glucose (UA) 1+ (NEGATIVE) H 06/09/17 21:23 Urine Ketones Negative (NEGATIVE) 06/09/17 21:23 Urine Blood Negative (NEGATIVE) 06/09/17 21:23 Urine Nitrite Negative (NEGATIVE) 06/09/17 21:23 Urine Bilirubin Negative (NEGATIVE) 06/09/17 21:23 Urine Urobilinogen Negative mg/dL (0.2-1.0) 06/09/17 21:23 Ur Leukocyte Esterase Negative (NEGATIVE) 06/09/17 21:23 RPR Titer Nonreactive (NONREACTIVE) 06/10/17 07:54 Labs noted - Treatment Hospital Course: Detox Protocol Followed, Detoxed Safely, Responded well, Discharged Condition Good Patient has Accepted a Rehab Referral to: / step program - Medication Discharge Medications: Ambulatory Orders Folic Acid - 1 mg PO DAILY #30 tablet 07/24/14 Aspirin [ASA -] 81 mg PO DAILY #30 tab.chew 06/23/15 Levetiracetam [Keppra -] 750 mg PO BID #60 tablet 06/23/15 Mirtazapine [Remeron -] 15 mg PO HS #30 tablet 02/13/17 Menthol/Phenol [Cepastat Lozenge -] 1 each MM Q4H PRN #30 ud 06/10/17 Venlafaxine HCl ER [Effexor Xr -] 150 mg PO DAILY #30 cap 06/10/17 - Diagnosis (1) Alcohol dependence with uncomplicated intoxication Current Visit: Yes Status: Acute (2) Seizure disorder Current Visit: Yes Status: Acute (3) Asthma Current Visit: Yes Status: Chronic (4) S/P IVC filter Current Visit: No Status: Chronic - AMA Did Patient Leave Against Medical Advice: No
--- NOTE | 2017-06-13 11:49 | DS ---
[facility] Detox Discharge Summary Admission Date: 06/09/17 Discharge Date: 06/13/17 - History Present History: Alcohol Dependence Pertinent Past History: Asthma Seizures IVC filter to R groin - Physical Exam Results Vital Signs: Vital Signs Temperature 95.9 F L 06/13/17 10:00 Pulse Rate 75 06/13/17 10:00 Respiratory Rate 18 06/13/17 10:00 Blood Pressure 119/71 06/13/17 10:00 O2 Sat by Pulse Oximetry (%) Pertinent Admission Physical Exam Findings: withdrawal sx Laboratory Last Values WBC 3.8 K/mm3 (4.0-10.0) L 06/10/17 07:54 RBC 4.61 M/mm3 (4.00-5.60) 06/10/17 07:54 Hgb 13.2 GM/dL (11.7-16.9) 06/10/17 07:54 Hct 41.1 % (35.4-49) 06/10/17 07:54 MCV 89.0 fl (80-96) 06/10/17 07:54 MCH 28.6 pg (25.7-33.7) 06/10/17 07:54 MCHC 32.1 g/dl (32.0-35.9) 06/10/17 07:54 RDW 14.8 % (11.9-15.9) 06/10/17 07:54 Plt Count 286 K/MM3 (134-434) D 06/10/17 07:54 MPV 7.6 fl (7.5-11.1) 06/10/17 07:54 Sodium 139 mmol/L (136-145) 06/10/17 07:54 Potassium 3.9 mmol/L (3.5-5.1) 06/10/17 07:54 Chloride 103 mmol/L (98-107) 06/10/17 07:54 Carbon Dioxide 28 mmol/L (21-32) 06/10/17 07:54 Anion Gap 8 (8-16) 06/10/17 07:54 BUN 7 mg/dL (7-18) D 06/10/17 07:54 Creatinine 0.8 mg/dL (0.7-1.3) 06/10/17 07:54 Creat Clearance w eGFR > 60 (>60) 06/10/17 07:54 Random Glucose 72 mg/dL (74-106) L 06/10/17 07:54 Calcium 9.2 mg/dL (8.5-10.1) 06/10/17 07:54 Total Bilirubin 0.6 mg/dL (0.2-1.0) 06/10/17 07:54 AST 26 U/L (15-37) 06/10/17 07:54 ALT 35 U/L (12-78) 06/10/17 07:54 Alkaline Phosphatase 81 U/L (45-117) 06/10/17 07:54 Total Protein 7.1 g/dl (6.4-8.2) 06/10/17 07:54 Albumin 3.6 g/dl (3.4-5.0) 06/10/17 07:54 Urine Color Ltyellow 06/09/17 21:23 Urine Appearance Clear 06/09/17 21:23 Urine pH 5.0 (5.0-8.0) 06/09/17 21:23 Ur Specific [place] 1.031 (1.001-1.035) 06/09/17 21:23 Urine Protein Negative (NEGATIVE) 06/09/17 21:23 Urine Glucose (UA) 1+ (NEGATIVE) H 06/09/17 21:23 Urine Ketones Negative (NEGATIVE) 06/09/17 21:23 Urine Blood Negative (NEGATIVE) 06/09/17 21:23 Urine Nitrite Negative (NEGATIVE) 06/09/17 21:23 Urine Bilirubin Negative (NEGATIVE) 06/09/17 21:23 Urine Urobilinogen Negative mg/dL (0.2-1.0) 06/09/17 21:23 Ur Leukocyte Esterase Negative (NEGATIVE) 06/09/17 21:23 RPR Titer Nonreactive (NONREACTIVE) 06/10/17 07:54 Labs noted - Treatment Hospital Course: Detox Protocol Followed, Detoxed Safely, Responded well, Discharged Condition Good Patient has Accepted a Rehab Referral to: / step program - Medication Discharge Medications: Ambulatory Orders Folic Acid - 1 mg PO DAILY #30 tablet 07/24/14 Aspirin [ASA -] 81 mg PO DAILY #30 tab.chew 06/23/15 Levetiracetam [Keppra -] 750 mg PO BID #60 tablet 06/23/15 Mirtazapine [Remeron -] 15 mg PO HS #30 tablet 02/13/17 Menthol/Phenol [Cepastat Lozenge -] 1 each MM Q4H PRN #30 ud 06/10/17 Venlafaxine HCl ER [Effexor Xr -] 150 mg PO DAILY #30 cap 06/10/17 - Diagnosis (1) Alcohol dependence with uncomplicated intoxication Current Visit: Yes Status: Acute (2) Seizure disorder Current Visit: Yes Status: Acute (3) Asthma Current Visit: Yes Status: Chronic (4) S/P IVC filter Current Visit: No Status: Chronic - AMA Did Patient Leave Against Medical Advice: No
== END 2017-06-13 11:11 | disposition home or self-care (01) | DRG 775 ==
LOC: YASAS 14:16 → Y6N 19:42
PROVIDERS: ADMIT Internal Medicine; ATTEND Internal Medicine
PROC: HZ2ZZZZ Detoxification Services for Substance Abuse Treatment (ICD-10-PCS; principal; 2017-06-09)
DX: F10.230 Alcohol dependence with withdrawal, uncomplicated (principal); F17.210 Nicotine dependence, cigarettes, uncomplicated; F41.9 Anxiety disorder, unspecified; F33.9 Major depressive disorder, recurrent, unspecified; F19.24 Other psychoactive substance dependence with psychoactive substance-induced mood disorder; G40.909 Epilepsy, unspecified, not intractable, without status epilepticus; J45.909 Unspecified asthma, uncomplicated; Z87.820 Personal history of traumatic brain injury; Z86.718 Personal history of other venous thrombosis and embolism; Z86.73 Personal history of transient ischemic attack (TIA), and cerebral infarction without residual deficits; Z95.828 Presence of other vascular implants and grafts
CPT/HCPCS: 36415; 80053; 81003; 85027; 86593; 93005; 93010

== ENCOUNTER 2017-07-08 08:43 | Inpatient (IN) | payer OTHER ==
[2017-07-08 10:34] VITALS: BMI 26.6
--- NOTE | 2017-07-08 14:10 | HP ---
Admission [facility] Allergies/Adverse Reactions: Allergies Allergy/AdvReac Type Severity Reaction Status Date / Time No Known Allergies Allergy Verified 07/08/17 11:02 History of Present Illness: 36 Y/O H/MALE WITH A HX OF ALCOHOL DEPENDENCE SEEKING DETOX TX. PT REPORTS HE WAS AT [facility] DUE TO ALCOHOL INTOXICATION, DISCHARGED AND SENT TO DETOX THIS MORNING. Exam Limitations: No Limitations, Intoxication (BUT ALERT O X 3.) - Ebola screening Have you traveled outside of the country in the last 21 days: No (N) Have you had contact with anyone from an Ebola affected area: No Have you been sick,other than usual withdrawal symptoms: No Do you have a fever: No - Review of Systems Constitutional: Chills, Loss of Appetite, Night Sweats, Changes in sleep, Unintentional Wgt. Loss EENT: reports: Blurred Vision (MISSING TEETH), Tearing, Nose Congestion Respiratory: reports: No Symptoms reported Cardiac: reports: Lightheadedness GI: reports: Diarrhea, Poor Appetite, Poor Fluid Intake : reports: No Symptoms Reported Musculoskeletal: reports: Back Pain, Joint Pain, Muscle Pain Integumentary: reports: Bruising (LEFT HAND DUE TO FALL IN SNOW THREE WEEKS AGO. WENT TO [facility] AND LATER TO [facility] WHERE THEY SAID "MY ARM(WRIST) WAS BROKEN". REPPORTS IT WAS CASTED BUT HE REMOVED IT A WEEK AGO BECAUSE "IT WAS UNCOMFORTABLE. I COULDN'T TAKE A SHOWER WITH THAT THING". REPORTS HAS ORTHOPEDIC FOLLOW UP APPOINTMENT ON JULY 17, 2017.), Dryness Neuro: reports: Headache, Seizure (LAST EPISODE IN JANUARY 2017.), Unsteady Gait , Dizziness Endocrine: reports: No Symptoms Reported Hematology: reports: No Symptoms Reported Psychiatric: reports: Orientated x3, Anxious, Depressed Other Systems: Reviewed and Negative Patient History - Patient Medical History Hx Anemia: No Hx Asthma: No Hx Chronic Obstructive Pulmonary Disease (COPD): No Hx Cancer: No Hx Cardiac Disorders: No Hx Congestive Heart Failure: No Hx Hypertension: No Hx Hypercholesterolemia: No Hx Pacemaker: No HX Cerebrovascular Accident: Yes (MINI STROKE IN 2009 WITH SLIGHT WEAKNESS TO LEFT SIDE) Hx Seizures: Yes (seizure disorder last 03/31) Hx Dementia: No Hx Diabetes: No Hx Gastrointestinal Disorders: No Hx Liver Disease: No Hx Genitourinary Disorders: No Hx Sexually Transmitted Disorders: No (DENIES) Hx Renal Disease (ESRD): No Hx Thyroid Disease: No Hx Human Immunodeficiency Virus (HIV): No (NEGATIVE HX) Hx Hepatitis C: No Hx Depression: Yes Hx Suicide Attempt: No (DENIES) Hx Bipolar Disorder: No Hx Schizophrenia: No - Patient Surgical History Past Surgical History: Yes Hx Neurologic Surgery: No Hx Cataract Extraction: No Hx Cardiac Surgery: Yes (IVC FILTER IN RT GROIN 2011) Hx Lung Surgery: No Hx Breast Surgery: No Hx Breast Biopsy: No Hx Abdominal Surgery: No Hx Appendectomy: No Hx Cholecystectomy: No Hx Genitourinary Surgery: No Hx Section: No Hx Orthopedic Surgery: No Other Surgical History: IVC filter in 2011 Anesthesia Reaction: No - PPD History Previous Implant?: Yes Documented Results: Negative w/proof Implanted On Prior [facility] Admission?: Yes Date: 03/13/17 Results: 0 MM PPD to be Administered?: No - Reproductive History Patient is a Female of Child Bearing Age (11 -55 yrs old): No (MALE) - Smoking Cessation Smoking history: Never smoked Have you smoked in the past 12 months: No Aproximately how many cigarettes per day: 0 Cigars Per Day: 0 Hx Chewing Tobacco Use: No Initiated information on smoking cessation: No - Substance & Tx. History Hx Alcohol Use: Yes (VODKA) Hx Substance Use: No Substance Use Type: Alcohol Hx Substance Use Treatment: Yes (LAST TX AT [facility]) - Substances Abused Alcohol Route: Oral Frequency: Daily Amount used: 1 PINT VODKA Age of first use: 11 Date of Last Use: 07/08/17 Family Disease History - Family Disease History Family Disease History: Other: Grandparent (HTN), Father (alcphol,dsa,) Admission Physical Exam BHS - Vital Signs Vital Signs: Vital Signs - 24 hr 07/08/17 10:32 Temperature 97 F L Pulse Rate 88 Respiratory 20 Rate Blood Pressure 125/75 - Physical General Appearance: Yes: Moderate Distress, Alcohol on Breath, Intoxicated, Irritable, Anxious HEENTM: Yes: EOMI, Normocephalic, BRUCE, Pharynx Normal Respiratory: Yes: Chest Non-Tender, Lungs Clear, Normal Breath Sounds Neck: Yes: No masses,lesions,Nodules, Supple, Trachea in good position Breast: Yes: Breast Exam Deferred Cardiology: Yes: Regular Rhythm, Regular Rate, S1, S2 Abdominal: Yes: Normal Bowel Sounds, Non Tender, Flat, Soft Genitourinary: Yes: Other (N/C) Back: Yes: Within Normal Limits Musculoskeletal: Yes: full range of Motion, Gait Steady, Other Extremities: Yes: Normal Range of Motion, Non-Tender Neurological: Yes: pneumatic jacketer II-XII NML intact, Fully Oriented, Alert, Motor Strength 5/5 Integumentary: Yes: Dry, Warm, Other (LEFT HAND IS DRY AND SCALY WITH SOME DISCOLORATION FROM PREVIOUS CAST APPLICATION.) Lymphatic: Yes: Within Normal Limits - Diagnostic (1) Alcohol dependence with uncomplicated intoxication Current Visit: Yes Status: Acute (2) History of deep venous thrombosis (DVT) of distal vein of right lower extremity Current Visit: Yes Status: Resolved (3) History of fall Current Visit: Yes Status: Chronic (4) Seizure disorder Current Visit: Yes Status: Chronic (5) Nicotine dependence Current Visit: Yes Status: Acute Qualifiers: Nicotine product type: cigarettes Substance use status: in withdrawal Qualified Code(s): F17.213 - Nicotine dependence, cigarettes, with withdrawal (6) Old cerebrovascular accident (CVA) without late effect Current Visit: Yes Status: Resolved (7) S/P IVC filter Current Visit: Yes Status: Chronic Cleared for Admission [facility] - Detox or Rehab [facility] Level of Care: Medically Managed Detox Regimen/Protocol: Librium [facility] Breath Alcohol Content Breath Alcohol Content: 0.218 Urine Drug Screen - Results Drug Screen Negative: No Urine Drug Screen Results: BZO-Benzodiazepines
[2017-07-08] MEDS ORDERED: guaiFENesin/D-METHORPHAN HB 10 ML UNIT-DOSE CUPS PO PRN (14:27)
[2017-07-08] MEDS ORDERED: ACETAMINOPHEN 325 MG TABLET (FP) PO PRN (14:27)
[2017-07-08] MEDS ORDERED: chlordiazePOXIDE HCL 25 MG CAPSULE PO PRN (14:27)
[2017-07-08] MEDS ORDERED: MAG HYDROX/AL HYDROX/SIMETH 30 ML UNIT-DOSE CUP PO PRN (14:27)
[2017-07-08] MEDS ORDERED: P-EPHED 60MG/TRIPROLIDI 2.5MG TABLET PO PRN (14:27)
[2017-07-08] MEDS ORDERED: MAGNESIUM HYDROX 2400MG/30ML ORAL SUSPENSION 30 ML CUP PO PRN (14:27)
[2017-07-08] MEDS ORDERED: LOPERAMIDE HCL 2 MG CAPSULE PO PRN (14:27)
[2017-07-08] MEDS ORDERED: MENTHOL/PHENOL 1 EACH UD MM PRN (14:27)
[2017-07-08] MEDS ORDERED: IBUPROFEN 400 MG TABLET (FP) PO PRN (14:27)
[2017-07-08] MEDS ORDERED: MAGNESIUM CITRATE 300 ML BOTTLE PO PRN (14:27)
[2017-07-08] MEDS ORDERED: levETIRAcetam 500 MG TABLET (FP) PO ONE (15:30)
[2017-07-08] MEDS ORDERED: chlordiazePOXIDE HCL 25 MG CAPSULE PO ONE (15:30)
[2017-07-08] MEDS: ASPIRIN 81 MG CHEWABLE TABLETS PO SCH (15:47)
[2017-07-08 17:21] LABS: HEMATOCRIT 42.7 % (35.4-49); MCH 29.6 pg (25.7-33.7); MCHC 32.9 g/dl (32.0-35.9); MEAN CELL VOLUME 90.1 fl (80-96); MEAN PLT VOLUME 7.4 fl (7.5-11.1); PLATELET COUNT 436 K/MM3 (134-434); RBC 4.75 M/mm3 (4.00-5.60); RDW 17.8 % (11.9-15.9); WHITE BLOOD COUNT 3.5 K/mm3 (4.0-10.0)
[2017-07-08 17:57] LABS: ALBUMIN 4.3 g/dl (3.4-5.0); ANION GAP 12 (8-16); BLOOD UREA NITROGEN 5 mg/dL (7-18); CALCIUM 9.1 mg/dL (8.5-10.1); CHLORIDE 99 mmol/L (98-107); CO2 27 mmol/L (21-32); GLUCOSE,RANDOM 79 mg/dL (74-106); POTASSIUM 4.2 mmol/L (3.5-5.1); SODIUM 138 mmol/L (136-145)
[2017-07-08 18:01] LABS: ALK PHOS 114 U/L (45-117); BILIRUBIN,TOTAL 0.4 mg/dL (0.2-1.0); CREATININE 0.8 mg/dL (0.7-1.3); SGOT/AST 26 U/L (15-37); SGPT/ALT 35 U/L (12-78); TOT PROT 8.5 g/dl (6.4-8.2)
[2017-07-08] MEDS: chlordiazePOXIDE HCL 25 MG CAPSULE PO SCH ×2 (18:10→22:23)
--- NOTE | 2017-07-08 18:43 | CONSULT ---
[facility] Psychiatric Consult - Data Date of interview: 07/08/17 Admission source: [facility] Identifying data: Another admission to [facility] for this 36 y/o male seeking detox treatment on for alcohol dependence.Patient is single,a father of one,domiciled,unemployed and supported on welfare. Substance Abuse History: Discussed in this session.Confirmed by patient.See current [facility] report for details : Smoking history: Never smoked. Have you smoked in the past 12 months: No. Aproximately how many cigarettes per day: 0. Cigars Per Day: 0. Hx Chewing Tobacco Use: No. Initiated information on smoking cessation: No. - Substance & Tx. History. Hx Alcohol Use: Yes (VODKA) . Hx Substance Use: No. Substance Use Type: Alcohol. Hx Substance Use Treatment: Yes (LAST TX AT [facility]). - Substances Abused. Alcohol. Route: Oral. Frequency: Daily. Amount used: 1 PINT VODKA. Age of first use: 11. Date of Last Use: 07/08/17 Medical History: History of mild CVA with left-sided weakness (2009),pulmonary embolism (IVC filter in place since 2011),seizure disorder and bronchial asthma. Psychiatric History: Onset of psychiatric disturbances (2008) as per self- report.Diagnosed with MDD.Treated as an inpatient at [facility] (2012),[facility] (2014).Mr Hernandez still gets his psychiatric outpatient services at [facility].Managed with a regimen of effexor XR 150 mg po daily and remeron 15 mg/hs (confirmed by pharmacy claims of 05/26 + 05/27/17 at [facility] # [id number]).Patient endorses good adherence with his medications (last reportedly taken on 07/08/17).Denies history of suicide attempts. Physical/Sexual Abuse/Trauma History: Patient denies. Additional Comment: Urine Drug Screen Results: BZO-Benzodiazepines.Noted. Mental Status Exam - Mental Status Exam Alert and Oriented to: Time, Place, Person Cognitive Function: Grossly Intact Patient Appearance: Well Groomed (short stature) Mood: Withdrawn, Anxious Affect: Mood Congruent Patient Behavior: Fatigued, Appropriate, Cooperative Speech Pattern: Clear, Appropriate Voice Loudness: Normal Thought Process: Goal Oriented Thought Disorder: Not Present Hallucinations: Denies Suicidal Ideation: Denies Homicidal Ideation: Denies Insight/Judgement: Fair Sleep: Poorly, Difficulty falling asleep (wants remeron) Appetite: Good Gait/Station: Shuffling (due to past CVA) Psychiatric Findings - Problem List ([place] 1, 2,3) (1) Alcohol dependence with uncomplicated intoxication Current Visit: Yes Status: Acute (2) Nicotine dependence Current Visit: Yes Status: Acute Qualifiers: Nicotine product type: cigarettes Substance use status: in withdrawal Qualified Code(s): F17.213 - Nicotine dependence, cigarettes, with withdrawal (3) Drug-induced mood disorder Current Visit: Yes Status: Acute (4) MDD (major depressive disorder) Current Visit: Yes Status: Chronic (5) Insomnia Current Visit: Yes Status: Acute - Initial Treatment Plan Initial Treatment Plan: Past records at [facility] revisited.Psychoeducation and support provided.Detoxification in process.Medications resumed : effexor ER 150 mg po daily + remeron 15 mg po hs.Side effects/benefits of both drugs are discussed with the patient.Made aware of risk of hypertension (effexor) and oversedation Remeron).Patient endorses history of good response to this regimen.Consent (verbal) given by patient for this plan of care.Observation.Fall precautions.
[2017-07-08 21:24] LABS: URINE APPEARANCE CLEAR; URINE BILIRUBIN NEGATIVE (NEGATIVE); URINE BLOOD NEGATIVE (NEGATIVE); URINE COLOR LTYELLOW; URINE GLUCOSE (UA) NEGATIVE (NEGATIVE); URINE KETONE NEGATIVE (NEGATIVE); URINE LEUK ESTERASE NEGATIVE (NEGATIVE); URINE NITRITE NEGATIVE (NEGATIVE); URINE PROTEIN NEGATIVE (NEGATIVE); URINE UROBILINOGEN NEGATIVE mg/dL (0.2-1.0)
[2017-07-08] MEDS ORDERED: levETIRAcetam 500 MG TABLET (FP) PO SCH (22:00)
[2017-07-08] MEDS: LEVETIRACETAM 500 MG, LEVETIRACETAM 250 MG PO SCH (22:23)
[2017-07-08] MEDS: THIAMINE HCL 100 MG TABLET (FP) PO SCH (22:24)
[2017-07-08] MEDS: MIRTAZAPINE 15 MG TABLET (FP) PO SCH (22:25)
[2017-07-09] MEDS: chlordiazePOXIDE HCL 25 MG CAPSULE PO SCH ×4 (05:21→22:18)
--- NOTE | 2017-07-09 10:04 | PN ---
[facility] CIWA - CIWA Score Nausea/Vomitin-No Nausea/No Vomiting Muscle Tremors: 4-Moderate,w/Arms Extend Anxiety: 4-Mod. Anxious/Guarded Agitation: 4-Moderately Restless Paroxysmal Sweats: 1-Minimal Palms Moist Orientation: 0-Oriented Tacttile Disturbances: 3-Moderate Itch/Numb/Burn Auditory Disturbances: 0-None Visual Disturbances: 0-None Headache: 0-None Present CIWA-Ar Total Score: 16 BHS Progress Note (SOAP) Subjective: ANXIETY,SWEATS,SLIGHT TREMORS,LOWER BACK PAIN. Objective: 07/09/17 10:04 Vital Signs Temperature 95.6 F L 07/09/17 09:53 Pulse Rate 86 07/09/17 09:53 Respiratory Rate 19 07/09/17 09:53 Blood Pressure 112/69 07/09/17 09:53 O2 Sat by Pulse Oximetry (%) Laboratory Last Values WBC 3.5 K/mm3 (4.0-10.0) L 07/08/17 14:40 RBC 4.75 M/mm3 (4.00-5.60) 07/08/17 14:40 Hgb 14.0 GM/dL (11.7-16.9) 07/08/17 14:40 Hct 42.7 % (35.4-49) 07/08/17 14:40 MCV 90.1 fl (80-96) 07/08/17 14:40 MCH 29.6 pg (25.7-33.7) 07/08/17 14:40 MCHC 32.9 g/dl (32.0-35.9) 07/08/17 14:40 RDW 17.8 % (11.9-15.9) H D 07/08/17 14:40 Plt Count 436 K/MM3 (134-434) H D 07/08/17 14:40 MPV 7.4 fl (7.5-11.1) L 07/08/17 14:40 Sodium 138 mmol/L (136-145) 07/08/17 14:40 Potassium 4.2 mmol/L (3.5-5.1) 07/08/17 14:40 Chloride 99 mmol/L (98-107) 07/08/17 14:40 Carbon Dioxide 27 mmol/L (21-32) 07/08/17 14:40 Anion Gap 12 (8-16) 07/08/17 14:40 BUN 5 mg/dL (7-18) L D 07/08/17 14:40 Creatinine 0.8 mg/dL (0.7-1.3) 07/08/17 14:40 Creat Clearance w eGFR > 60 (>60) 07/08/17 14:40 Random Glucose 79 mg/dL (74-106) 07/08/17 14:40 Calcium 9.1 mg/dL (8.5-10.1) 07/08/17 14:40 Total Bilirubin 0.4 mg/dL (0.2-1.0) D 07/08/17 14:40 AST 26 U/L (15-37) 07/08/17 14:40 ALT 35 U/L (12-78) 07/08/17 14:40 Alkaline Phosphatase 114 U/L (45-117) D 07/08/17 14:40 Total Protein 8.5 g/dl (6.4-8.2) H 07/08/17 14:40 Albumin 4.3 g/dl (3.4-5.0) 07/08/17 14:40 Urine Color Ltyellow 07/08/17 20:00 Urine Appearance Clear 07/08/17 20:00 Urine pH 6.0 (5.0-8.0) 07/08/17 20:00 Ur Specific [place] 1.012 (1.001-1.035) 07/08/17 20:00 Urine Protein Negative (NEGATIVE) 07/08/17 20:00 Urine Glucose (UA) Negative (NEGATIVE) 07/08/17 20:00 Urine Ketones Negative (NEGATIVE) 07/08/17 20:00 Urine Blood Negative (NEGATIVE) 07/08/17 20:00 Urine Nitrite Negative (NEGATIVE) 07/08/17 20:00 Urine Bilirubin Negative (NEGATIVE) 07/08/17 20:00 Urine Urobilinogen Negative mg/dL (0.2-1.0) 07/08/17 20:00 Ur Leukocyte Esterase Negative (NEGATIVE) 07/08/17 20:00 RPR Titer Nonreactive (NONREACTIVE) 07/08/17 14:40 Assessment: 07/09/17 10:04 WITHDRAWAL SX Plan: CONTINUE DETOX
[2017-07-09] MEDS: ASPIRIN 81 MG CHEWABLE TABLETS PO SCH (10:05)
[2017-07-09] MEDS: LEVETIRACETAM 500 MG, LEVETIRACETAM 250 MG PO SCH ×2 (10:05→22:18)
[2017-07-09] MEDS: VENLAFAXINE HCL 150 MG E.R. CAPSULE PO SCH (10:06)
--- NOTE | 2017-07-09 10:35 | EKG ---
Test Reason : Blood Pressure : / mmHG Vent. Rate : 093 BPM Atrial Rate : 093 BPM P-R Int : 138 ms QRS Dur : 076 ms QT Int : 350 ms P-R-T Axes : 063 027 000 degrees QTc Int : 435 ms NORMAL SINUS RHYTHM POSSIBLE LEFT ATRIAL ENLARGEMENT NONSPECIFIC T WAVE ABNORMALITY ABNORMAL ECG WHEN COMPARED WITH ECG OF 09-JUN-2017 21:42, NO SIGNIFICANT CHANGE WAS FOUND Confirmed by YOHANA COVINGTON, MIMI ([id number]) on 07/09/2017 10:35:04 AM Referred By: Confirmed By:MIMI MULLER MD
[2017-07-09] MEDS: PRENATAL VITAMINS W/ FOLIC ACID TABLET (FP) PO SCH (12:54)
[2017-07-09] MEDS: LIDOCAINE 5% TOPICAL PATCH TP SCH (17:38)
[2017-07-09] MEDS: MIRTAZAPINE 15 MG TABLET (FP) PO SCH (22:18)
[2017-07-09] MEDS: THIAMINE HCL 100 MG TABLET (FP) PO SCH (22:18)
[2017-07-09] MEDS: LIDOCAINE PATCH REMOVAL MC SCH (22:19)
[2017-07-10] MEDS: chlordiazePOXIDE HCL 25 MG CAPSULE PO SCH ×2 (05:16→10:04)
[2017-07-10] MEDS: LIDOCAINE 5% TOPICAL PATCH TP SCH (10:04)
[2017-07-10] MEDS: ASPIRIN 81 MG CHEWABLE TABLETS PO SCH (10:04)
[2017-07-10] MEDS: LEVETIRACETAM 500 MG, LEVETIRACETAM 250 MG PO SCH ×2 (10:04→22:42)
[2017-07-10] MEDS: PRENATAL VITAMINS W/ FOLIC ACID TABLET (FP) PO SCH (10:04)
[2017-07-10] MEDS: VENLAFAXINE HCL 150 MG E.R. CAPSULE PO SCH (10:04)
--- NOTE | 2017-07-10 10:28 | PN ---
[facility] CIWA - CIWA Score Nausea/Vomitin-No Nausea/No Vomiting Muscle Tremors: 4-Moderate,w/Arms Extend Anxiety: 4-Mod. Anxious/Guarded Agitation: 3 Paroxysmal Sweats: 1-Minimal Palms Moist Orientation: 0-Oriented Tacttile Disturbances: 3-Moderate Itch/Numb/Burn Auditory Disturbances: 0-None Visual Disturbances: 0-None Headache: 0-None Present CIWA-Ar Total Score: 15 S Progress Note (SOAP) Subjective: BACK PAIN RESOLVING WITH TREATMENT, SLIGHT ANXIETY,SWEATS,TREMORS. Objective: 07/10/17 10:27 Vital Signs Temperature 97.0 F L 07/10/17 09:46 Pulse Rate 87 07/10/17 09:46 Respiratory Rate 16 07/10/17 09:46 Blood Pressure 111/72 07/10/17 09:46 O2 Sat by Pulse Oximetry (%) Laboratory Last Values WBC 3.5 K/mm3 (4.0-10.0) L 07/08/17 14:40 RBC 4.75 M/mm3 (4.00-5.60) 07/08/17 14:40 Hgb 14.0 GM/dL (11.7-16.9) 07/08/17 14:40 Hct 42.7 % (35.4-49) 07/08/17 14:40 MCV 90.1 fl (80-96) 07/08/17 14:40 MCH 29.6 pg (25.7-33.7) 07/08/17 14:40 MCHC 32.9 g/dl (32.0-35.9) 07/08/17 14:40 RDW 17.8 % (11.9-15.9) H D 07/08/17 14:40 Plt Count 436 K/MM3 (134-434) H D 07/08/17 14:40 MPV 7.4 fl (7.5-11.1) L 07/08/17 14:40 Sodium 138 mmol/L (136-145) 07/08/17 14:40 Potassium 4.2 mmol/L (3.5-5.1) 07/08/17 14:40 Chloride 99 mmol/L (98-107) 07/08/17 14:40 Carbon Dioxide 27 mmol/L (21-32) 07/08/17 14:40 Anion Gap 12 (8-16) 07/08/17 14:40 BUN 5 mg/dL (7-18) L D 07/08/17 14:40 Creatinine 0.8 mg/dL (0.7-1.3) 07/08/17 14:40 Creat Clearance w eGFR > 60 (>60) 07/08/17 14:40 Random Glucose 79 mg/dL (74-106) 07/08/17 14:40 Calcium 9.1 mg/dL (8.5-10.1) 07/08/17 14:40 Total Bilirubin 0.4 mg/dL (0.2-1.0) D 07/08/17 14:40 AST 26 U/L (15-37) 07/08/17 14:40 ALT 35 U/L (12-78) 07/08/17 14:40 Alkaline Phosphatase 114 U/L (45-117) D 07/08/17 14:40 Total Protein 8.5 g/dl (6.4-8.2) H 07/08/17 14:40 Albumin 4.3 g/dl (3.4-5.0) 07/08/17 14:40 Urine Color Ltyellow 07/08/17 20:00 Urine Appearance Clear 07/08/17 20:00 Urine pH 6.0 (5.0-8.0) 07/08/17 20:00 Ur Specific [place] 1.012 (1.001-1.035) 07/08/17 20:00 Urine Protein Negative (NEGATIVE) 07/08/17 20:00 Urine Glucose (UA) Negative (NEGATIVE) 07/08/17 20:00 Urine Ketones Negative (NEGATIVE) 07/08/17 20:00 Urine Blood Negative (NEGATIVE) 07/08/17 20:00 Urine Nitrite Negative (NEGATIVE) 07/08/17 20:00 Urine Bilirubin Negative (NEGATIVE) 07/08/17 20:00 Urine Urobilinogen Negative mg/dL (0.2-1.0) 07/08/17 20:00 Ur Leukocyte Esterase Negative (NEGATIVE) 07/08/17 20:00 RPR Titer Nonreactive (NONREACTIVE) 07/08/17 14:40 Assessment: 07/10/17 10:27 WITHDRAWAL SX Plan: CONTINUE DETOX
[2017-07-10] MEDS: chlordiazePOXIDE 5 MG CAPSULE PO SCH ×2 (16:58→22:42)
[2017-07-10] MEDS: THIAMINE HCL 100 MG TABLET (FP) PO SCH (22:42)
[2017-07-10] MEDS: MIRTAZAPINE 15 MG TABLET (FP) PO SCH (22:42)
[2017-07-10] MEDS: LIDOCAINE PATCH REMOVAL MC SCH (22:45)
[2017-07-11] MEDS: chlordiazePOXIDE 5 MG CAPSULE PO SCH ×2 (05:15→10:19)
[2017-07-11] MEDS: VENLAFAXINE HCL 150 MG E.R. CAPSULE PO SCH (10:18)
[2017-07-11] MEDS: ASPIRIN 81 MG CHEWABLE TABLETS PO SCH (10:18)
[2017-07-11] MEDS: PRENATAL VITAMINS W/ FOLIC ACID TABLET (FP) PO SCH (10:18)
[2017-07-11] MEDS: LEVETIRACETAM 500 MG, LEVETIRACETAM 250 MG PO SCH ×2 (10:19→22:16)
[2017-07-11] MEDS: LIDOCAINE 5% TOPICAL PATCH TP SCH (10:19)
--- NOTE | 2017-07-11 16:25 | PN ---
BHS Progress Note (SOAP) Subjective: Constipation, Body Aches, Anxious. Objective: PT. A & O X 3, OBSERVED AMBULATING ON UNIT. NO ACUTE DISTRESS. 07/11/17 16:23 Vital Signs Temperature 97.3 F L 07/11/17 13:22 Pulse Rate 97 H 07/11/17 13:22 Respiratory Rate 18 07/11/17 13:22 Blood Pressure 113/71 07/11/17 13:22 O2 Sat by Pulse Oximetry (%) Laboratory Tests 07/08/17 07/08/17 07/08/17 14:40 14:40 14:40 WBC 3.5 L RBC 4.75 Hgb 14.0 Hct 42.7 MCV 90.1 MCH 29.6 MCHC 32.9 RDW 17.8 H D Plt Count 436 H D MPV 7.4 L Sodium 138 Potassium 4.2 Chloride 99 Carbon Dioxide 27 Anion Gap 12 BUN 5 L D Creatinine 0.8 Creat Clearance w eGFR > 60 Random Glucose 79 Calcium 9.1 Total Bilirubin 0.4 D AST 26 ALT 35 Alkaline Phosphatase 114 D Total Protein 8.5 H Albumin 4.3 Urine Color Urine Appearance Urine pH Ur Specific [place] Urine Protein Urine Glucose (UA) Urine Ketones Urine Blood Urine Nitrite Urine Bilirubin Urine Urobilinogen Ur Leukocyte Esterase RPR Titer Nonreactive 07/08/17 20:00 WBC RBC Hgb Hct MCV MCH MCHC RDW Plt Count MPV Sodium Potassium Chloride Carbon Dioxide Anion Gap BUN Creatinine Creat Clearance w eGFR Random Glucose Calcium Total Bilirubin AST ALT Alkaline Phosphatase Total Protein Albumin Urine Color Ltyellow Urine Appearance Clear Urine pH 6.0 Ur Specific [place] 1.012 Urine Protein Negative Urine Glucose (UA) Negative Urine Ketones Negative Urine Blood Negative Urine Nitrite Negative Urine Bilirubin Negative Urine Urobilinogen Negative Ur Leukocyte Esterase Negative RPR Titer LABS NOTED. LEVETIRACETAM LEVEL RESULT PENDING. 07/11/17 16:24 Assessment: 07/11/17 16:24 WITHDRAWAL SYMPTOMS. Plan: CONTINUE DETOX.
[2017-07-11] MEDS: chlordiazePOXIDE HCL 10 MG CAPSULE PO SCH ×2 (17:47→22:15)
[2017-07-11] MEDS: MIRTAZAPINE 15 MG TABLET (FP) PO SCH (22:15)
[2017-07-11] MEDS: THIAMINE HCL 100 MG TABLET (FP) PO SCH (22:15)
[2017-07-11] MEDS: LIDOCAINE PATCH REMOVAL MC SCH (22:16)
[2017-07-12] MEDS: chlordiazePOXIDE HCL 10 MG CAPSULE PO SCH (05:42)
[2017-07-12 06:29] VITALS: BP 106/52; PULSE 55; TEMP 96.7
[2017-07-12] MEDS: PRENATAL VITAMINS W/ FOLIC ACID TABLET (FP) PO SCH (09:36)
[2017-07-12] MEDS: LEVETIRACETAM 500 MG, LEVETIRACETAM 250 MG PO SCH (09:36)
--- NOTE | 2017-07-12 16:51 | DS ---
[facility] Detox Discharge Summary Admission Date: 07/08/17 Discharge Date: 07/12/17 - History Present History: Alcohol Dependence Pertinent Past History: Seizure disorder CVA - Physical Exam Results Vital Signs: Vital Signs Temperature 96.7 F L 07/12/17 06:29 Pulse Rate 55 L 07/12/17 06:29 Respiratory Rate 18 07/12/17 06:29 Blood Pressure 106/52 07/12/17 06:29 O2 Sat by Pulse Oximetry (%) Pertinent Admission Physical Exam Findings: Withdrawal symptoms Laboratory Tests 07/08/17 07/08/17 07/08/17 14:40 14:40 14:40 WBC 3.5 L RBC 4.75 Hgb 14.0 Hct 42.7 MCV 90.1 MCH 29.6 MCHC 32.9 RDW 17.8 H D Plt Count 436 H D MPV 7.4 L Sodium 138 Potassium 4.2 Chloride 99 Carbon Dioxide 27 Anion Gap 12 BUN 5 L D Creatinine 0.8 Creat Clearance w eGFR > 60 Random Glucose 79 Calcium 9.1 Total Bilirubin 0.4 D AST 26 ALT 35 Alkaline Phosphatase 114 D Total Protein 8.5 H Albumin 4.3 Urine Color Urine Appearance Urine pH Ur Specific [place] Urine Protein Urine Glucose (UA) Urine Ketones Urine Blood Urine Nitrite Urine Bilirubin Urine Urobilinogen Ur Leukocyte Esterase Levetiracetam RPR Titer Nonreactive 07/08/17 07/08/17 14:40 20:00 WBC RBC Hgb Hct MCV MCH MCHC RDW Plt Count MPV Sodium Potassium Chloride Carbon Dioxide Anion Gap BUN Creatinine Creat Clearance w eGFR Random Glucose Calcium Total Bilirubin AST ALT Alkaline Phosphatase Total Protein Albumin Urine Color Ltyellow Urine Appearance Clear Urine pH 6.0 Ur Specific [place] 1.012 Urine Protein Negative Urine Glucose (UA) Negative Urine Ketones Negative Urine Blood Negative Urine Nitrite Negative Urine Bilirubin Negative Urine Urobilinogen Negative Ur Leukocyte Esterase Negative Levetiracetam 6.8 L RPR Titer Labs noted - Treatment Hospital Course: Detox Protocol Followed, Detoxed Safely, Responded well, Discharged Condition Good - Medication Discharge Medications: Ambulatory Orders Folic Acid - 1 mg PO DAILY #30 tablet 07/24/14 Aspirin [ASA -] 81 mg PO DAILY #30 tab.chew 06/23/15 Levetiracetam [Keppra -] 750 mg PO BID #60 tablet 06/23/15 Mirtazapine [Remeron -] 15 mg PO HS #30 tablet 02/13/17 Venlafaxine HCl ER [Effexor Xr -] 150 mg PO DAILY #30 cap 06/10/17 Mirtazapine 7.5 mg PO HS #30 tablet 07/10/17 Venlafaxine HCl ER [Effexor Xr -] 150 mg PO DAILY #30 cap.er.24h 07/10/17 - Diagnosis (1) Alcohol dependence with uncomplicated intoxication Status: Acute (2) Nicotine dependence Status: Chronic Qualifiers: Nicotine product type: cigarettes Substance use status: in withdrawal Qualified Code(s): F17.213 - Nicotine dependence, cigarettes, with withdrawal (3) Old cerebrovascular accident (CVA) without late effect Status: Chronic (4) Seizure disorder Status: Chronic - AMA Did Patient Leave Against Medical Advice: No (F/U with PCP within 1-2 weeks)
== END 2017-07-12 09:37 | disposition home or self-care (01) | DRG 775 ==
LOC: YASAS 08:43 → Y3N 15:10
PROVIDERS: ADMIT Internal Medicine; ATTEND Internal Medicine
PROC: HZ2ZZZZ Detoxification Services for Substance Abuse Treatment (ICD-10-PCS; principal; 2017-07-08)
DX: F10.230 Alcohol dependence with withdrawal, uncomplicated (principal); F17.213 Nicotine dependence, cigarettes, with withdrawal; F33.9 Major depressive disorder, recurrent, unspecified; F19.24 Other psychoactive substance dependence with psychoactive substance-induced mood disorder; G40.909 Epilepsy, unspecified, not intractable, without status epilepticus; Z86.73 Personal history of transient ischemic attack (TIA), and cerebral infarction without residual deficits; Z95.828 Presence of other vascular implants and grafts; Z86.718 Personal history of other venous thrombosis and embolism; Z91.81 History of falling
CPT/HCPCS: 36415; 80053; 81003; 85027; 86593; 93005; 93010

== ENCOUNTER 2017-08-13 08:47 | Inpatient (IN) | payer OTHER ==
[2017-08-13 09:21] VITALS: BMI 28.7
--- NOTE | 2017-08-13 10:21 | HP ---
CIWA Score - CIWA Score Nausea/Vomitin-No Nausea/No Vomiting Muscle Tremors: 4-Moderate,w/Arms Extend Anxiety: 4-Mod. Anxious/Guarded Agitation: 4-Moderately Restless Paroxysmal Sweats: 3 Orientation: 0-Oriented Tacttile Disturbances: 0-None Auditory Disturbances: 0-None Visual Disturbances: 0-None Headache: 1-Very Mild CIWA-Ar Total Score: 16 Admission ROS BHS - HPI Chief Complaint: I need to detox and change my life. I have a daughter and need to do this for me and my family. Allergies/Adverse Reactions: Allergies Allergy/AdvReac Type Severity Reaction Status Date / Time No Known Allergies Allergy Verified 08/13/17 09:40 History of Present Illness: pt is a 36yr old male with a history of alcohol dependence seeking detox for treatment. Exam Limitations: No Limitations - Ebola screening Have you traveled outside of the country in the last 21 days: No (N) Have you had contact with anyone from an Ebola affected area: No Have you been sick,other than usual withdrawal symptoms: No Do you have a fever: No - Review of Systems Constitutional: Chills, Diaphoresis, Loss of Appetite, Night Sweats, Changes in sleep, Unintentional Wgt. Loss EENT: reports: No Symptoms Reported Respiratory: reports: No Symptoms reported Cardiac: reports: No Symptoms Reported GI: reports: Constipated, Poor Appetite, Poor Fluid Intake, Indigestion : reports: No Symptoms Reported Musculoskeletal: reports: Back Pain Integumentary: reports: Flushing, Sweating Neuro: reports: Headache, Seizure (last seizure Mar 2017), Tingling, Tremors Endocrine: reports: Excessive Sweating, Flushing, Intolerance to Cold, Intolerance to Heat Hematology: reports: No Symptoms Reported Psychiatric: reports: Judgement Intact, Mood/Affect Appropiate, Orientated x3, Agitated, Anxious Other Systems: Reviewed and Negative Patient History - Patient Medical History Hx Anemia: No Hx Asthma: Yes (asthma as a child) Hx Chronic Obstructive Pulmonary Disease (COPD): No Hx Cancer: No Hx Cardiac Disorders: Yes Hx Congestive Heart Failure: No Hx Hypertension: No Hx Hypercholesterolemia: No Hx Pacemaker: No HX Cerebrovascular Accident: Yes (MINI STROKE IN 2009 WITH SLIGHT WEAKNESS TO LEFT SIDE) Hx Seizures: Yes (alcohol related-last episode was in 03/2017) Hx Dementia: No Hx Diabetes: No Hx Gastrointestinal Disorders: No Hx Liver Disease: No Hx Genitourinary Disorders: No Hx Sexually Transmitted Disorders: No Hx Renal Disease (ESRD): No Hx Thyroid Disease: No Hx Human Immunodeficiency Virus (HIV): No (NEGATIVE HX) Hx Hepatitis C: No (negative) Hx Depression: Yes Hx Suicide Attempt: No (denies) Hx Bipolar Disorder: No Hx Schizophrenia: No - Patient Surgical History Past Surgical History: Yes Hx Neurologic Surgery: No Hx Cataract Extraction: No Hx Cardiac Surgery: Yes (IVC FILTER IN RT GROIN 2011) Hx Lung Surgery: No Hx Breast Surgery: No Hx Breast Biopsy: No Hx Abdominal Surgery: No Hx Appendectomy: No Hx Cholecystectomy: No Hx Genitourinary Surgery: No Hx Section: No Hx Orthopedic Surgery: No Other Surgical History: IVC filter in 2011/stroke in 2011 Anesthesia Reaction: No - PPD History Previous Implant?: Yes Documented Results: Negative w/proof Implanted On Prior [facility] Admission?: Yes Date: 03/13/17 Results: 0 mm PPD to be Administered?: No - Reproductive History Patient is a Female of Child Bearing Age (11 -55 yrs old): No - Smoking Cessation Smoking history: Never smoked Have you smoked in the past 12 months: No Aproximately how many cigarettes per day: 0 Cigars Per Day: 0 Hx Chewing Tobacco Use: No Initiated information on smoking cessation: No - Substance & Tx. History Hx Alcohol Use: Yes Hx Substance Use: No Substance Use Type: Alcohol Hx Substance Use Treatment: Yes (last detox [facility] 2016) - Substances Abused Alcohol-vodka/beer Route: Oral Frequency: Daily Amount used: 1 pt./1 (16 oz.) Age of first use: 11 Date of Last Use: 08/13/17 Family Disease History - Family Disease History Family Disease History: Other: Grandparent (HTN), Father (alcphol,dsa,) Admission Physical Exam BHS - Vital Signs Vital Signs: Vital Signs - 24 hr 08/13/17 09:20 Temperature 97.9 F Pulse Rate 97 H Respiratory 18 Rate Blood Pressure 109/71 - Physical General Appearance: Yes: Appropriately Dressed, Tremorous, Irritable, Sweating, Anxious HEENTM: Yes: Normal Voice, Nasal Congestion, Rhinorrhea Respiratory: Yes: Lungs Clear, Normal Breath Sounds, No Respiratory Distress Neck: Yes: No masses,lesions,Nodules Breast: Yes: Within Normal Limits Cardiology: Yes: Regular Rhythm, Regular Rate, S1, S2 Abdominal: Yes: Normal Bowel Sounds, Non Tender, Soft Genitourinary: Yes: Within Normal Limits Back: Yes: Normal Inspection Musculoskeletal: Yes: full range of Motion, Gait Steady Extremities: Yes: Normal Capillary Refill, Normal Inspection, Non-Tender, Tremors Neurological: Yes: Fully Oriented, Alert, Normal Response Integumentary: Yes: Normal Color, Diaphoresis Lymphatic: Yes: Within Normal Limits - Diagnostic (1) History of deep venous thrombosis (DVT) of distal vein of right lower extremity Current Visit: No Status: Chronic (2) Alcohol dependence with uncomplicated withdrawal Current Visit: Yes Status: Chronic (3) Asthma Current Visit: Yes Status: Chronic Qualifiers: Asthma severity: mild Asthma complication type: uncomplicated (4) Old cerebrovascular accident (CVA) without late effect Current Visit: No Status: Chronic (5) S/P IVC filter Current Visit: No Status: Chronic (6) Seizure disorder Current Visit: No Status: Chronic Cleared for Admission [facility] - Detox or Rehab [facility] Level of Care: Medically Managed Detox Regimen/Protocol: Librium [facility] Breath Alcohol Content Breath Alcohol Content: 0.293 Urine Drug Screen - Results Drug Screen Negative: No Urine Drug Screen Results: BZO-Benzodiazepines
[2017-08-13] MEDS ORDERED: guaiFENesin/D-METHORPHAN HB 10 ML UNIT-DOSE CUPS PO PRN (10:28)
[2017-08-13] MEDS ORDERED: LOPERAMIDE HCL 2 MG CAPSULE PO PRN (10:28)
[2017-08-13] MEDS ORDERED: MAGNESIUM HYDROX 2400MG/30ML ORAL SUSPENSION 30 ML CUP PO PRN (10:28)
[2017-08-13] MEDS ORDERED: ACETAMINOPHEN 325 MG TABLET (FP) PO PRN (10:28)
[2017-08-13] MEDS ORDERED: chlordiazePOXIDE HCL 25 MG CAPSULE PO PRN (10:28)
[2017-08-13] MEDS ORDERED: MAGNESIUM CITRATE 300 ML BOTTLE PO PRN (10:28)
[2017-08-13] MEDS ORDERED: MENTHOL/PHENOL 1 EACH UD MM PRN (10:28)
[2017-08-13] MEDS ORDERED: P-EPHED 60MG/TRIPROLIDI 2.5MG TABLET PO PRN (10:28)
[2017-08-13] MEDS ORDERED: MAG HYDROX/AL HYDROX/SIMETH 30 ML UNIT-DOSE CUP PO PRN (10:28)
[2017-08-13] MEDS ORDERED: hydrOXYzine PAMOATE 50 MG CAPSULE (FP) PO PRN (10:28)
[2017-08-13] MEDS ORDERED: IBUPROFEN 400 MG TABLET (FP) PO PRN (10:28)
[2017-08-13] MEDS ORDERED: chlordiazePOXIDE HCL 25 MG CAPSULE PO ONE (10:55)
[2017-08-13] MEDS ORDERED: levETIRAcetam 250 MG TABLET (FP) PO ONE (12:40)
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
[2017-08-13 17:32] LABS: URINE APPEARANCE CLEAR; URINE BILIRUBIN NEGATIVE (NEGATIVE); URINE BLOOD NEGATIVE (NEGATIVE); URINE COLOR STRAW; URINE GLUCOSE (UA) NEGATIVE (NEGATIVE); URINE KETONE NEGATIVE (NEGATIVE); URINE LEUK ESTERASE NEGATIVE (NEGATIVE); URINE NITRITE NEGATIVE (NEGATIVE); URINE PROTEIN NEGATIVE (NEGATIVE); URINE UROBILINOGEN NEGATIVE mg/dL (0.2-1.0)
[2017-08-13] MEDS: chlordiazePOXIDE HCL 25 MG CAPSULE PO SCH ×2 (17:45→22:18)
[2017-08-13] MEDS ORDERED: levETIRAcetam 500 MG TABLET (FP) PO SCH (22:00)
[2017-08-13] MEDS: THIAMINE HCL 100 MG TABLET (FP) PO SCH (22:18)
[2017-08-13] MEDS: DOXEPIN HCL 10 MG CAPSULE PO SCH (22:18)
[2017-08-14] MEDS: chlordiazePOXIDE HCL 25 MG CAPSULE PO SCH ×4 (05:59→23:11)
[2017-08-14 10:11] LABS: HEMATOCRIT 41.3 % (35.4-49); HEMOGLOBIN 13.7 GM/dL (11.7-16.9); MCHC 33.2 g/dl (32.0-35.9); MEAN CELL VOLUME 90.4 fl (80-96); MEAN PLT VOLUME 8.3 fl (7.5-11.1); PLATELET COUNT 241 K/MM3 (134-434); RBC 4.57 M/mm3 (4.00-5.60); RDW 16.7 % (11.9-15.9); WHITE BLOOD COUNT 5.1 K/mm3 (4.0-10.0)
[2017-08-14 10:19] LABS: CHLORIDE 104 mmol/L (98-107); POTASSIUM 3.9 mmol/L (3.5-5.1); SODIUM 139 mmol/L (136-145)
--- NOTE | 2017-08-14 10:33 | EKG ---
Test Reason : Blood Pressure : / mmHG Vent. Rate : 075 BPM Atrial Rate : 075 BPM P-R Int : 138 ms QRS Dur : 084 ms QT Int : 368 ms P-R-T Axes : 058 025 021 degrees QTc Int : 410 ms NORMAL SINUS RHYTHM NONSPECIFIC ST AND T WAVE ABNORMALITY ABNORMAL ECG WHEN COMPARED WITH ECG OF 08-JUL-2017 15:53, NO SIGNIFICANT CHANGE WAS FOUND Confirmed by LONG SOLIZ MD ([id number]) on 08/14/2017 10:33:00 AM Referred By: Confirmed By:LONG SOLIZ MD
[2017-08-14 10:41] LABS: ALBUMIN 4.2 g/dl (3.4-5.0); ALK PHOS 101 U/L (45-117); ANION GAP 11 (8-16); BILIRUBIN,TOTAL 0.7 mg/dL (0.2-1.0); BLOOD UREA NITROGEN 6 mg/dL (7-18); CALCIUM 8.6 mg/dL (8.5-10.1); CO2 24 mmol/L (21-32); CREATININE 0.7 mg/dL (0.7-1.3); GLUCOSE,RANDOM 83 mg/dL (74-106); SGOT/AST 34 U/L (15-37); SGPT/ALT 34 U/L (12-78); TOT PROT 7.6 g/dl (6.4-8.2)
[2017-08-14] MEDS: VENLAFAXINE HCL 150 MG E.R. CAPSULE PO SCH (11:11)
[2017-08-14] MEDS: PRENATAL VITAMINS W/ FOLIC ACID TABLET (FP) PO SCH (11:11)
[2017-08-14] MEDS: ASPIRIN 81 MG CHEWABLE TABLETS PO SCH (11:12)
--- NOTE | 2017-08-14 12:36 | PN ---
S CIWA - CIWA Score Nausea/Vomitin Muscle Tremors: 3 Anxiety: 3 Agitation: 3 Paroxysmal Sweats: 1-Minimal Palms Moist Orientation: 0-Oriented Tacttile Disturbances: 1-Very Mild Itch/Numbness Auditory Disturbances: 1-Very Mild Visual Disturbances: 0-None Headache: 2-Mild CIWA-Ar Total Score: 17 BHS Progress Note (SOAP) Subjective: ALERT,IRRITABLE,ANXIOUS,INTERRUPTED SLEEP,TREMOR Objective: 08/14/17 12:34 Vital Signs Temperature 96.6 F L 08/14/17 10:00 Pulse Rate 83 08/14/17 10:00 Respiratory Rate 16 08/14/17 10:00 Blood Pressure 114/65 08/14/17 10:00 O2 Sat by Pulse Oximetry (%) EKG NSR NO CHEST PAIN,NO SOB,NO DIZZINESS Laboratory Last Values WBC 5.1 K/mm3 (4.0-10.0) D 08/14/17 05:45 RBC 4.57 M/mm3 (4.00-5.60) 08/14/17 05:45 Hgb 13.7 GM/dL (11.7-16.9) 08/14/17 05:45 Hct 41.3 % (35.4-49) 08/14/17 05:45 MCV 90.4 fl (80-96) 08/14/17 05:45 MCH 30.0 pg (25.7-33.7) 08/14/17 05:45 MCHC 33.2 g/dl (32.0-35.9) 08/14/17 05:45 RDW 16.7 % (11.9-15.9) H 08/14/17 05:45 Plt Count 241 K/MM3 (134-434) D 08/14/17 05:45 MPV 8.3 fl (7.5-11.1) D 08/14/17 05:45 Sodium 139 mmol/L (136-145) 08/14/17 05:45 Potassium 3.9 mmol/L (3.5-5.1) 08/14/17 05:45 Chloride 104 mmol/L (98-107) 08/14/17 05:45 Carbon Dioxide 24 mmol/L (21-32) 08/14/17 05:45 Anion Gap 11 (8-16) 08/14/17 05:45 BUN 6 mg/dL (7-18) L 08/14/17 05:45 Creatinine 0.7 mg/dL (0.7-1.3) 08/14/17 05:45 Creat Clearance w eGFR > 60 (>60) 08/14/17 05:45 Random Glucose 83 mg/dL (74-106) 08/14/17 05:45 Calcium 8.6 mg/dL (8.5-10.1) 08/14/17 05:45 Total Bilirubin 0.7 mg/dL (0.2-1.0) D 08/14/17 05:45 AST 34 U/L (15-37) D 08/14/17 05:45 ALT 34 U/L (12-78) 08/14/17 05:45 Alkaline Phosphatase 101 U/L (45-117) 08/14/17 05:45 Total Protein 7.6 g/dl (6.4-8.2) 08/14/17 05:45 Albumin 4.2 g/dl (3.4-5.0) 08/14/17 05:45 Urine Color Straw 08/13/17 16:30 Urine Appearance Clear 08/13/17 16:30 Urine pH 7.0 (5.0-8.0) 08/13/17 16:30 Ur Specific [place] 1.005 (1.001-1.035) 08/13/17 16:30 Urine Protein Negative (NEGATIVE) 08/13/17 16:30 Urine Glucose (UA) Negative (NEGATIVE) 08/13/17 16:30 Urine Ketones Negative (NEGATIVE) 08/13/17 16:30 Urine Blood Negative (NEGATIVE) 08/13/17 16:30 Urine Nitrite Negative (NEGATIVE) 08/13/17 16:30 Urine Bilirubin Negative (NEGATIVE) 08/13/17 16:30 Urine Urobilinogen Negative mg/dL (0.2-1.0) 08/13/17 16:30 Ur Leukocyte Esterase Negative (NEGATIVE) 08/13/17 16:30 Assessment: 08/14/17 12:36 WITHDRAWAL SYMPTOM Plan: CONTINUE DETOX
[2017-08-14] MEDS: DOXEPIN HCL 10 MG CAPSULE PO SCH (23:11)
[2017-08-14] MEDS: THIAMINE HCL 100 MG TABLET (FP) PO SCH (23:12)
[2017-08-15] MEDS: chlordiazePOXIDE HCL 25 MG CAPSULE PO SCH ×2 (05:58→11:16)
[2017-08-15] MEDS ORDERED: levETIRAcetam 500 MG TABLET (FP) PO ONE (09:33)
[2017-08-15] MEDS ORDERED: levETIRAcetam 250 MG TABLET (FP) PO ONE (09:34)
[2017-08-15] MEDS: ASPIRIN 81 MG CHEWABLE TABLETS PO SCH (11:15)
[2017-08-15] MEDS: VENLAFAXINE HCL 150 MG E.R. CAPSULE PO SCH (11:16)
[2017-08-15] MEDS: PRENATAL VITAMINS W/ FOLIC ACID TABLET (FP) PO SCH (11:16)
--- NOTE | 2017-08-15 12:53 | PN ---
S CIWA - CIWA Score Nausea/Vomitin Muscle Tremors: 3 Anxiety: 3 Agitation: 2 Paroxysmal Sweats: 1-Minimal Palms Moist Orientation: 0-Oriented Tacttile Disturbances: 1-Very Mild Itch/Numbness Auditory Disturbances: 1-Very Mild Visual Disturbances: 0-None Headache: 2-Mild CIWA-Ar Total Score: 16 BHS Progress Note (SOAP) Subjective: ALERT,IRRITABLE,ANXIOUS,INTERRUPTED SLEEP,TREMOR Objective: 08/15/17 12:52 Vital Signs Temperature 97.5 F L 08/15/17 11:39 Pulse Rate 91 H 08/15/17 11:39 Respiratory Rate 18 08/15/17 11:39 Blood Pressure 103/67 08/15/17 11:39 O2 Sat by Pulse Oximetry (%) Laboratory Last Values WBC 5.1 K/mm3 (4.0-10.0) D 08/14/17 05:45 RBC 4.57 M/mm3 (4.00-5.60) 08/14/17 05:45 Hgb 13.7 GM/dL (11.7-16.9) 08/14/17 05:45 Hct 41.3 % (35.4-49) 08/14/17 05:45 MCV 90.4 fl (80-96) 08/14/17 05:45 MCH 30.0 pg (25.7-33.7) 08/14/17 05:45 MCHC 33.2 g/dl (32.0-35.9) 08/14/17 05:45 RDW 16.7 % (11.9-15.9) H 08/14/17 05:45 Plt Count 241 K/MM3 (134-434) D 08/14/17 05:45 MPV 8.3 fl (7.5-11.1) D 08/14/17 05:45 Sodium 139 mmol/L (136-145) 08/14/17 05:45 Potassium 3.9 mmol/L (3.5-5.1) 08/14/17 05:45 Chloride 104 mmol/L (98-107) 08/14/17 05:45 Carbon Dioxide 24 mmol/L (21-32) 08/14/17 05:45 Anion Gap 11 (8-16) 08/14/17 05:45 BUN 6 mg/dL (7-18) L 08/14/17 05:45 Creatinine 0.7 mg/dL (0.7-1.3) 08/14/17 05:45 Creat Clearance w eGFR > 60 (>60) 08/14/17 05:45 Random Glucose 83 mg/dL (74-106) 08/14/17 05:45 Calcium 8.6 mg/dL (8.5-10.1) 08/14/17 05:45 Total Bilirubin 0.7 mg/dL (0.2-1.0) D 08/14/17 05:45 AST 34 U/L (15-37) D 08/14/17 05:45 ALT 34 U/L (12-78) 08/14/17 05:45 Alkaline Phosphatase 101 U/L (45-117) 08/14/17 05:45 Total Protein 7.6 g/dl (6.4-8.2) 08/14/17 05:45 Albumin 4.2 g/dl (3.4-5.0) 08/14/17 05:45 Urine Color Straw 08/13/17 16:30 Urine Appearance Clear 08/13/17 16:30 Urine pH 7.0 (5.0-8.0) 08/13/17 16:30 Ur Specific [place] 1.005 (1.001-1.035) 08/13/17 16:30 Urine Protein Negative (NEGATIVE) 08/13/17 16:30 Urine Glucose (UA) Negative (NEGATIVE) 08/13/17 16:30 Urine Ketones Negative (NEGATIVE) 08/13/17 16:30 Urine Blood Negative (NEGATIVE) 08/13/17 16:30 Urine Nitrite Negative (NEGATIVE) 08/13/17 16:30 Urine Bilirubin Negative (NEGATIVE) 08/13/17 16:30 Urine Urobilinogen Negative mg/dL (0.2-1.0) 08/13/17 16:30 Ur Leukocyte Esterase Negative (NEGATIVE) 08/13/17 16:30 RPR Titer Nonreactive (NONREACTIVE) 08/14/17 05:45 Assessment: 08/15/17 12:53 WITHDRAWAL SYMPTOM Plan: CONTINUE DETOX
--- NOTE | 2017-08-15 13:38 | PN ---
[facility] Progress Note Note: PATIENT DID NOT WANT TO COMPLETE TREATMENT,SIGNED RELEASE AMA,SEEN BY COUNSELOR, HE WILL FOLLOW UP WITH HIS PMD ,HAS ALL MEDICATIONS AT HOME
--- NOTE | 2017-08-15 13:44 | DS ---
[facility] Detox Discharge Summary Admission Date: 08/13/17 Discharge Date: 08/15/17 - History Present History: Alcohol Dependence Additional Comments: PATIENT DID NOT WANT TO COMPLETE TREATMENT,SEEN B COUNSELOR,SIGNED RELEASE AMA, HAS ALL MEDICATIONS AT HOME Pertinent Past History: ASTHMA OLD CVA S/P IVC FILTER SEIZURE DISORDER HISTORY OF DVT RIGHT LEG - Physical Exam Results Vital Signs: Vital Signs Temperature 97.5 F L 08/15/17 11:39 Pulse Rate 91 H 08/15/17 11:39 Respiratory Rate 18 08/15/17 11:39 Blood Pressure 103/67 08/15/17 11:39 O2 Sat by Pulse Oximetry (%) Pertinent Admission Physical Exam Findings: WITHDRAWAL SIGNS AND SYMPTOM - Medication Discharge Medications: Ambulatory Orders Aspirin [ASA -] 81 mg PO DAILY #30 tab.chew 06/23/15 levETIRAcetam [Keppra -] 750 mg PO BID #60 tablet 06/23/15 Venlafaxine HCl ER [Effexor Xr -] 150 mg PO DAILY #30 cap 06/10/17 Mirtazapine 7.5 mg PO HS #30 tablet 07/10/17 - Diagnosis (1) Alcohol dependence with uncomplicated withdrawal Current Visit: Yes Status: Chronic (2) Asthma Current Visit: Yes Status: Chronic Qualifiers: Asthma severity: mild Asthma complication type: uncomplicated (3) History of intracranial hemorrhage Current Visit: No Status: Chronic (4) History of pulmonary embolism Current Visit: No Status: Chronic (5) Old cerebrovascular accident (CVA) without late effect Current Visit: No Status: Chronic (6) S/P IVC filter Current Visit: No Status: Chronic (7) Seizure disorder Current Visit: No Status: Chronic (8) Syncope Current Visit: No Status: Chronic - AMA Did Patient Leave Against Medical Advice: Yes
[2017-08-15 16:20] VITALS: BP 118/58; PULSE 66; TEMP 97.7
[2017-08-15] MEDS ORDERED: chlordiazePOXIDE 5 MG CAPSULE PO SCH (17:00)
[2017-08-16] MEDS ORDERED: chlordiazePOXIDE HCL 10 MG CAPSULE PO SCH (17:00)
== END 2017-08-15 14:15 | disposition left against medical advice (07) | DRG 770 ==
LOC: YASAS 08:47 → Y6N 10:44
PROVIDERS: ADMIT Internal Medicine; ATTEND Internal Medicine
PROC: HZ2ZZZZ Detoxification Services for Substance Abuse Treatment (ICD-10-PCS; principal; 2017-08-13)
DX: F10.230 Alcohol dependence with withdrawal, uncomplicated (principal); F33.9 Major depressive disorder, recurrent, unspecified; J45.909 Unspecified asthma, uncomplicated; G40.909 Epilepsy, unspecified, not intractable, without status epilepticus; G47.00 Insomnia, unspecified; Z86.711 Personal history of pulmonary embolism; Z86.73 Personal history of transient ischemic attack (TIA), and cerebral infarction without residual deficits; Z95.828 Presence of other vascular implants and grafts; Z86.79 Personal history of other diseases of the circulatory system
CPT/HCPCS: 36415; 80053; 81003; 85027; 86593; 93005; 93010

== ENCOUNTER 2018-09-05 09:07 | Inpatient (IN) | payer OTHER ==
[2018-09-05 09:41] VITALS: BMI 30.6
--- NOTE | 2018-09-05 10:59 | HP ---
CIWA Score Nausea/Vomitin-No Nausea/No Vomiting Muscle Tremors: 4-Moderate,w/Arms Extend Anxiety: 3 Agitation: 3 Paroxysmal Sweats: 3 Orientation: 0-Oriented Tacttile Disturbances: 0-None Auditory Disturbances: 0-None Visual Disturbances: 0-None Headache: 0-None Present CIWA-Ar Total Score: 13 - Admission Criteria [facility] Guidelines: Admission for Medically Managed Detox: Requires at least one of the followin. CIWA greater than 12 2. Seizures within the past 24 hours 3. Delirium tremens within the past 24 hours 4. Hallucinations within the past 24 hours 5. Acute intervention needed for co occurring medical disorder 6. Acute intervention needed for co occurring psychiatric disorder 7. Severe withdrawal that cannot be handled at a lower level of care (continued vomiting, continued diarrhea, abnormal vital signs) requiring intravenous medication and/or fluids 8. Patient presents the following: CIWA greater than 12, Seizures, delirium tremens or hallucinations in the past 12 hours Admission Criteria Met: Admission criteria met Admission ROS S - [facility] Chief Complaint: "I am here for detox from alcohol" Allergies/Adverse Reactions: Allergies Allergy/AdvReac Type Severity Reaction Status Date / Time No Known Allergies Allergy Verified 09/05/18 10:37 History of Present Illness: 37 y/o male with a long hx of alcohol intoxication presents requesting detox. Started drinking at age 11, was last here August 2017. Endorses withdrawal induced Seizures (last in 2016) and blackouts when he binge drinks. Has a prior hx of suicide attempt by drinking too much "years ago", denies current suicidal ideation nor attempts. Hx: Seizures(Keppra), "mini stroke" (TIA?) - has residual weakness to L side, Blood clots (Xarelto) in 2008, Depression(on Effexor). Pt states he is in [facility] health program for alcohol and drugs which he attends as an out-patient X 5d/wk. Confidential Drug Utilization Report Search Terms: Mp David, 1980 Search Date: 09/05/2018 11:08:45 AM The Drug Utilization Report below displays all of the controlled substance prescriptions, if any, that your patient has filled in the last twelve months. The information displayed on this report is compiled from pharmacy submissions to the Department, and accurately reflects the information as submitted by the pharmacies. This report was requested by: Merly Friedman | Reference #: [id number] There are no results for the search terms that you entered. Exam Limitations: No Limitations - Ebola screening Have you traveled outside of the country in the last 21 days: No (N) Have you had contact with anyone from an Ebola affected area: No Have you been sick,other than usual withdrawal symptoms: No Do you have a fever: No - Review of Systems Constitutional: No Symptoms Reported EENT: reports: Recent change in vision (blurry vision), Dental Problems ( cavities) Respiratory: reports: No Symptoms reported Cardiac: reports: Chest Tightness (2 days ago, seen at [facility] for it) GI: reports: No Symptoms Reported : reports: No Symptoms Reported Musculoskeletal: reports: No Symptoms Reported Integumentary: reports: Bruising (due to xarelto), Other Neuro: reports: Numbness (L arm and L leg weakness residual from the TIA) Endocrine: reports: No Symptoms Reported Hematology: reports: Blood Clots (hx of) Psychiatric: reports: Mood/Affect Appropiate, Orientated x3 Other Systems: Reviewed and Negative Patient History - Patient Medical History Hx Anemia: No Hx Asthma: No Hx Chronic Obstructive Pulmonary Disease (COPD): No Hx Cancer: No Hx Cardiac Disorders: No Hx Congestive Heart Failure: No Hx Hypertension: No Hx Hypercholesterolemia: No Hx Pacemaker: No HX Cerebrovascular Accident: Yes (MINI STROKE IN 2009 WITH SLIGHT WEAKNESS TO LEFT SIDE) Hx Seizures: Yes (2017 on keppra) Hx Dementia: No Hx Diabetes: No Hx Gastrointestinal Disorders: No Hx Liver Disease: No Hx Genitourinary Disorders: No Hx Sexually Transmitted Disorders: No Hx Renal Disease (ESRD): No Hx Thyroid Disease: No Hx Human Immunodeficiency Virus (HIV): No (NEGATIVE HX) Hx Hepatitis C: No (negative) Hx Depression: Yes Hx Suicide Attempt: No (denies) Hx Bipolar Disorder: No Hx Schizophrenia: No - Patient Surgical History Past Surgical History: Yes Hx Neurologic Surgery: No Hx Cataract Extraction: No Hx Cardiac Surgery: Yes (IVC FILTER IN RT GROIN 2011) Hx Lung Surgery: No Hx Breast Surgery: No Hx Breast Biopsy: No Hx Abdominal Surgery: No Hx Appendectomy: No Hx Cholecystectomy: No Hx Genitourinary Surgery: No Hx Section: No Hx Orthopedic Surgery: No Other Surgical History: IVC filter in 2011/stroke in 2012 Anesthesia Reaction: No - PPD History Previous Implant?: Yes Documented Results: Negative w/proof Date: 03/13/17 Results: 0 mm PPD to be Administered?: Yes - Reproductive History Patient is a Female of Child Bearing Age (11 -55 yrs old): No Patient : No - Smoking Cessation Smoking history: Never smoked Have you smoked in the past 12 months: No Aproximately how many cigarettes per day: 0 Cigars Per Day: 0 Hx Chewing Tobacco Use: No - Substance & Tx. History Hx Alcohol Use: Yes Substance Use Type: Alcohol Hx Substance Use Treatment: Yes (detox) - Substances Abused Alcohol Route: Oral Frequency: Daily Amount used: 2 pt. vodka, 3 beers (24 oz cans) Age of first use: 11 Date of Last Use: 09/05/18 Family Disease History - Family Disease History Family Disease History: Other: Grandparent (HTN), Father (, ?drug use) Admission Physical Exam [facility] - Vital Signs Vital Signs: Vital Signs - 24 hr 09/05/18 09:36 Temperature 96.2 F L Pulse Rate 110 H Respiratory 20 Rate Blood Pressure 129/84 - Physical General Appearance: Yes: Appropriately Dressed, Mild Distress HEENTM: Yes: Within Normal Limits Respiratory: Yes: Lungs Clear, No Respiratory Distress, No Accessory Muscle Use Neck: Yes: No masses,lesions,Nodules, Supple, Trachea in good position Breast: Yes: Breast Exam Deferred Cardiology: Yes: Tachycardia (states he is always tachycardiac, no symptom complaints offered) Abdominal: Yes: Non Tender, Distended Genitourinary: Yes: Within Normal Limits Back: Yes: Normal Inspection Musculoskeletal: Yes: Gait Steady, Other (slight limp to L leg) Extremities: Yes: Normal Capillary Refill, Normal Inspection, Other (weakness to L arm, motor strngth 4/5 to L arm) Neurological: Yes: Fully Oriented, Alert Integumentary: Yes: Normal Color, Warm Lymphatic: Yes: Within Normal Limits Cleared for Admission [facility] - Detox or Rehab [facility] Level of Care: Medically Managed Detox Regimen/Protocol: Librium [facility] Breath Alcohol Content Breath Alcohol Content: 0.082 Urine Drug Screen - Results Drug Screen Negative: No Urine Drug Screen Results: BZO-Benzodiazepines Inpatient Rehab Admission - Rehab Decision to Admit Inpatient rehab admission?: No
[2018-09-05] MEDS ORDERED: MELATONIN 5 MG TABLETS PO PRN (11:40)
[2018-09-05] MEDS ORDERED: MENTHOL/PHENOL 1 EACH UD MM PRN (11:40)
[2018-09-05] MEDS ORDERED: hydrOXYzine PAMOATE 25 MG CAPSULE (FP) PO PRN (11:40)
[2018-09-05] MEDS ORDERED: IBUPROFEN 400 MG TABLET (FP) PO PRN (11:40)
[2018-09-05] MEDS ORDERED: MAGNESIUM CITRATE 300 ML BOTTLE PO PRN (11:40)
[2018-09-05] MEDS ORDERED: ACETAMINOPHEN 325 MG TABLET (FP) PO PRN ×2 (11:40)
[2018-09-05] MEDS ORDERED: chlordiazePOXIDE HCL 25 MG CAPSULE PO PRN (11:40)
[2018-09-05] MEDS ORDERED: MAGNESIUM HYDROX 2400MG/30ML ORAL SUSPENSION 30 ML CUP PO PRN (11:40)
[2018-09-05] MEDS ORDERED: BISMUTH SUBSALICYLATE 524 MG/30 ML UD PO PRN (11:40)
[2018-09-05] MEDS ORDERED: METHOCARBAMOL 500 MG TABLET PO PRN (11:40)
[2018-09-05] MEDS ORDERED: MAG HYDROX/AL HYDROX/SIMETH 30 ML UNIT-DOSE CUP PO PRN (11:40)
--- NOTE | 2018-09-05 12:01 | PN ---
[facility] Progress Note Note: Spoke to someone at [facility] pharmacy who stated extension being called is the children's pharmacy, she confirmed pt is a member but at the adult pharmacy. Unable to confirm pt's medication verbally as the adult pharmacy is closed today. However, records reveal that pt last picked up his prescriptions for Xarelto and Keppra this month hence meds ordered. Pls confirm pt's meds/dosages tomorrow when pharmacy is open
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
[2018-09-05] MEDS ORDERED: chlordiazePOXIDE HCL 25 MG CAPSULE PO ONE (14:15)
[2018-09-05] MEDS: levETIRAcetam 500 MG TABLET (FP) PO SCH ×2 (14:38→22:33)
[2018-09-05] MEDS: VENLAFAXINE HCL 75 MG E.R. CAPSULES (FP) PO SCH (15:02)
[2018-09-05] MEDS: chlordiazePOXIDE HCL 25 MG CAPSULE PO SCH ×2 (18:03→22:34)
[2018-09-05] MEDS: traZODone HCL 50 MG TABLET (FP) PO SCH (22:33)
[2018-09-05] MEDS: THIAMINE HCL 100 MG TABLET (FP) PO SCH (22:34)
[2018-09-06] MEDS: RIVAROXABAN 20 MG TABLET PO SCH ×2 (01:33→22:26)
[2018-09-06] MEDS: chlordiazePOXIDE HCL 25 MG CAPSULE PO SCH ×4 (05:30→22:27)
[2018-09-06 10:25] LABS: HEMATOCRIT 35.4 % (35.4-49); HEMOGLOBIN 12.3 GM/dL (11.7-16.9); MCH 29.2 pg (25.7-33.7); MCHC 34.7 g/dl (32.0-35.9); MEAN CELL VOLUME 84.3 fl (80-96); MEAN PLT VOLUME 7.7 fl (7.5-11.1); PLATELET COUNT 161 K/MM3 (134-434); RDW 17.2 % (11.9-15.9); WHITE BLOOD COUNT 5.1 K/mm3 (4.0-10.0)
[2018-09-06 10:38] LABS: ALBUMIN 3.3 g/dl (3.4-5.0); ALK PHOS 99 U/L (45-117); ANION GAP 7 MMOL/L (8-16); BILIRUBIN,TOTAL 0.8 mg/dL (0.2-1); BLOOD UREA NITROGEN 6 mg/dL (7-18); CALCIUM 8.5 mg/dL (8.5-10.1); CHLORIDE 103 mmol/L (98-107); CO2 28 mmol/L (21-32); CREATININE 0.9 mg/dL (0.55-1.3); GLUCOSE,RANDOM 78 mg/dL (74-106); SGOT/AST 34 U/L (15-37); SGPT/ALT 30 U/L (13-61); SODIUM 138 mmol/L (136-145); TOT PROT 6.6 g/dl (6.4-8.2)
[2018-09-06] MEDS: PRENATAL VITAMINS W/ FOLIC ACID TABLET (FP) PO SCH (10:44)
[2018-09-06] MEDS: levETIRAcetam 500 MG TABLET (FP) PO SCH ×2 (10:44→22:25)
[2018-09-06] MEDS: VENLAFAXINE HCL 75 MG E.R. CAPSULES (FP) PO SCH (10:44)
--- NOTE | 2018-09-06 15:18 | PN ---
[facility] CIWA - CIWA Score Nausea/Vomitin-No Nausea/No Vomiting Muscle Tremors: 3 Anxiety: 3 Agitation: 2 Paroxysmal Sweats: 2 Orientation: 0-Oriented Tacttile Disturbances: 2-Mild Itch/Numbness/Burn Auditory Disturbances: 0-None Visual Disturbances: 2-Mild Sensitivity Headache: 0-None Present CIWA-Ar Total Score: 14 BHS Progress Note (SOAP) Subjective: Sweating, Anxious, Tremors. Objective: PATIENT A & O X 3, OBSERVED AMBULATING ON UNIT. IN NO ACUTE DISTRESS. 09/06/18 15:19 Vital Signs Temperature 98.4 F 09/06/18 13:51 Pulse Rate 103 H 09/06/18 13:51 Respiratory Rate 16 09/06/18 13:51 Blood Pressure 124/77 09/06/18 13:51 O2 Sat by Pulse Oximetry (%) Laboratory Tests 09/06/18 09/06/18 09/06/18 07:00 07:00 07:00 WBC 5.1 RBC 4.20 Hgb 12.3 Hct 35.4 MCV 84.3 MCH 29.2 MCHC 34.7 RDW 17.2 H Plt Count 161 D MPV 7.7 Sodium 138 Potassium 4.0 Chloride 103 Carbon Dioxide 28 Anion Gap 7 L BUN 6 L Creatinine 0.9 Creat Clearance w eGFR 94.44 Random Glucose 78 Calcium 8.5 Total Bilirubin 0.8 AST 34 ALT 30 Alkaline Phosphatase 99 Total Protein 6.6 Albumin 3.3 L RPR Titer Nonreactive LABS NOTED. Assessment: 09/06/18 15:19 WITHDRAWAL SYMPTOMS. Plan: CONTINUE DETOX. EXTERNAL MEDICATION REVIEW IN [facility] CONFIRMS THAT PATIENT FILLED PRESCRIPTIONS FOR KEPPRA, 750 MG PO BID AND FOR XARELTO, 20 MG PO DAILY. THUS, CURRENT ORDERS FOR THESE MEDICATIONS IN [facility] ARE CURRENTLY CORRECT. DURING AM ROUNDS ASSESSMENT, PATIENT REPORTS THAT HE HAS BEEN FEELING DISCOMFORT IN CALF MUSCLE OF LOWER LEFT LEG X APPROX. 1 MONTH. PATIENT REPORTS A HISTORY OF APPROX. 7 PREVIOUS DVT'S IN BILATERAL LEGS AND THAT HE HAD CONSULTED HIS CARD PROCESSING CLERK (DR. MOSS, [facility]) APPROX. 1 MONTH AGO FOR THIS MATTER. ACCORDING TO PATIENT, DR. MOSS PRESCRIBED XARELTO, 20 MG PO DAILY AND RECOMMENDED PATIENT TO TAKE MEDICATION DAILY FOR TIME BEING. PATIENT REPORTS THAT DISCOMFORT IS INTERMITTENT IN LEFT LOWER LEG AT THIS TIME. PATIENT DENIES DISCOMFORT IN RIGHT LOWER LEG. NO SWELLING OR ERYTHEMA NOTED IN EITHER LOWER LEG. PEDAL PULSES PALPABLE EQUALLY IN BILATERAL FEET. PATIENT HAS FULL ROM AND TACTILE SENSATION IN BILATERAL FEET AND TOES. CAPILLARY REFILL < 2 SECONDS IN TOES OF BILATERAL FEET. PATIENT ABLE TO AMBULATE ON DETOX UNIT UNASSISTED AND WITHOUT APPARENT DIFFICULTY. AFTER CONSULTATION, WITH DR. NETTLES OF [facility] AND WITH DR. LLANOS, PATIENT TO BE MAINTAINED ON XARELTO, 20 MG PO HS AND MONITORED FOR TIME BEING ON DETOX UNIT. PATIENT ADVISED TO NOTIFY MEDICAL / NURSING STAFF IMMEDIATELY SHOULD HE NOTICE DEVELOPMENT OF REDNESS OR SWELLING IN EITHER LEG OR IF CURRENT DISCOMFORT IN LEFT LEG BECOMES MORE SEVERE AT ANY TIME. PATIENT ALSO ADVISED TO FOLLOW-UP WITH DR. MOSS ([facility]) SOON POSSIBLE AFTER DISCHARGE FROM DETOX UNIT FOR FURTHER MEDICAL EVALUATION OF THIS CONDITION. PATIENT VERBALIZED UNDERSTANDING OF RECOMMENDATIONS.
[2018-09-06] MEDS: THIAMINE HCL 100 MG TABLET (FP) PO SCH (22:25)
[2018-09-06] MEDS: traZODone HCL 50 MG TABLET (FP) PO SCH (22:26)
[2018-09-07] MEDS: chlordiazePOXIDE HCL 25 MG CAPSULE PO SCH ×2 (05:56→11:00)
--- NOTE | 2018-09-07 09:22 | PN ---
S CIWA - CIWA Score Nausea/Vomitin Muscle Tremors: 2 Anxiety: 2 Agitation: 2 Paroxysmal Sweats: 1-Minimal Palms Moist Orientation: 0-Oriented Tacttile Disturbances: 1-Very Mild Itch/Numbness Auditory Disturbances: 1-Very Mild Visual Disturbances: 0-None Headache: 2-Mild CIWA-Ar Total Score: 13 BHS Progress Note (SOAP) Subjective: alert,irritable,anxious,interrupted sleep,tremor Objective: 09/07/18 09:21 Vital Signs Temperature 97.5 F L 09/07/18 09:14 Pulse Rate 69 09/07/18 09:14 Respiratory Rate 18 09/07/18 09:14 Blood Pressure 106/63 09/07/18 09:14 O2 Sat by Pulse Oximetry (%) 09/07/18 09:21 Laboratory Last Values WBC 5.1 K/mm3 (4.0-10.0) 09/06/18 07:00 RBC 4.20 M/mm3 (4.00-5.60) 09/06/18 07:00 Hgb 12.3 GM/dL (11.7-16.9) 09/06/18 07:00 Hct 35.4 % (35.4-49) 09/06/18 07:00 MCV 84.3 fl (80-96) 09/06/18 07:00 MCH 29.2 pg (25.7-33.7) 09/06/18 07:00 MCHC 34.7 g/dl (32.0-35.9) 09/06/18 07:00 RDW 17.2 % (11.9-15.9) H 09/06/18 07:00 Plt Count 161 K/MM3 (134-434) D 09/06/18 07:00 MPV 7.7 fl (7.5-11.1) 09/06/18 07:00 Sodium 138 mmol/L (136-145) 09/06/18 07:00 Potassium 4.0 mmol/L (3.5-5.1) 09/06/18 07:00 Chloride 103 mmol/L (98-107) 09/06/18 07:00 Carbon Dioxide 28 mmol/L (21-32) 09/06/18 07:00 Anion Gap 7 MMOL/L (8-16) L 09/06/18 07:00 BUN 6 mg/dL (7-18) L 09/06/18 07:00 Creatinine 0.9 mg/dL (0.55-1.3) 09/06/18 07:00 Creat Clearance w eGFR 94.44 (>60) 09/06/18 07:00 Random Glucose 78 mg/dL (74-106) 09/06/18 07:00 Calcium 8.5 mg/dL (8.5-10.1) 09/06/18 07:00 Total Bilirubin 0.8 mg/dL (0.2-1) 09/06/18 07:00 AST 34 U/L (15-37) 09/06/18 07:00 ALT 30 U/L (13-61) 09/06/18 07:00 Alkaline Phosphatase 99 U/L (45-117) 09/06/18 07:00 Total Protein 6.6 g/dl (6.4-8.2) 09/06/18 07:00 Albumin 3.3 g/dl (3.4-5.0) L 09/06/18 07:00 RPR Titer Nonreactive (NONREACTIVE) 09/06/18 07:00 Assessment: 09/07/18 09:22 withdrawal symptom Plan: continue detox
[2018-09-07] MEDS: PRENATAL VITAMINS W/ FOLIC ACID TABLET (FP) PO SCH (10:28)
[2018-09-07] MEDS: levETIRAcetam 500 MG TABLET (FP) PO SCH ×2 (10:28→22:42)
[2018-09-07] MEDS: VENLAFAXINE HCL 75 MG E.R. CAPSULES (FP) PO SCH (10:28)
[2018-09-07] MEDS ORDERED: chlordiazePOXIDE HCL 10 MG CAPSULE PO PRN (17:00)
[2018-09-07] MEDS: chlordiazePOXIDE HCL 10 MG CAPSULE PO SCH ×2 (18:32→22:42)
[2018-09-07] MEDS: RIVAROXABAN 20 MG TABLET PO SCH (22:41)
[2018-09-07] MEDS: THIAMINE HCL 100 MG TABLET (FP) PO SCH (22:41)
[2018-09-07] MEDS: traZODone HCL 50 MG TABLET (FP) PO SCH (22:43)
[2018-09-08] MEDS: chlordiazePOXIDE HCL 10 MG CAPSULE PO SCH (06:07)
--- NOTE | 2018-09-08 08:35 | PN ---
S Progress Note Note: pt states he feels great. no c/o of any withdrawals. Pt will be d/c today.
--- NOTE | 2018-09-08 08:36 | DS ---
[facility] Detox Discharge Summary Admission Date: 09/05/18 Discharge Date: 09/08/18 - History Present History: Alcohol Dependence - Physical Exam Results Vital Signs: Vital Signs Temperature 97.3 F L 09/08/18 07:05 Pulse Rate 63 09/08/18 07:05 Respiratory Rate 18 09/08/18 07:05 Blood Pressure 106/72 09/08/18 07:05 O2 Sat by Pulse Oximetry (%) - Treatment Hospital Course: Detox Protocol Followed, Detoxed Safely, Responded well, Discharged Condition Good, Rehab Referral Accepted - Medication Discharge Medications: Ambulatory Orders levETIRAcetam [Keppra -] 750 mg PO BID #60 tablet 06/23/15 Mirtazapine 7.5 mg PO HS #30 tablet 07/10/17 Rivaroxaban [Xarelto -] 20 mg PO HS 09/05/18 Venlafaxine HCl ER [Effexor Xr -] 225 mg PO DAILY 09/05/18 - Diagnosis (1) Alcohol-induced mood disorder Current Visit: Yes Status: Acute (2) Alcohol-induced sleep disorder Current Visit: Yes Status: Acute (3) MDD (major depressive disorder), recurrent episode, moderate Current Visit: Yes Status: Chronic (4) Alcohol dependence with uncomplicated intoxication Current Visit: Yes Status: Chronic (5) Anxiety Current Visit: No Status: Acute (6) Drug-induced mood disorder Current Visit: No Status: Acute (7) Insomnia Current Visit: No Status: Acute (8) Alcohol dependence with uncomplicated withdrawal Current Visit: Yes Status: Chronic (9) Asthma Current Visit: Yes Status: Chronic Qualifiers: Asthma severity: mild Asthma complication type: unspecified (10) History of deep venous thrombosis (DVT) of distal vein of right lower extremity Current Visit: No Status: Chronic (11) History of fall Current Visit: No Status: Chronic (12) History of intracranial hemorrhage Current Visit: No Status: Chronic (13) History of pulmonary embolism Current Visit: No Status: Chronic (14) Left-sided weakness Current Visit: No Status: Chronic (15) MDD (major depressive disorder) Current Visit: No Status: Chronic (16) Old cerebrovascular accident (CVA) without late effect Current Visit: No Status: Chronic (17) S/P IVC filter Current Visit: No Status: Chronic (18) Seizure disorder Current Visit: No Status: Chronic (19) Syncope Current Visit: No Status: Chronic - AMA Did Patient Leave Against Medical Advice: No (declined rehab; going home)
[2018-09-08 09:39] VITALS: BP 100/57; PULSE 87; TEMP 97.9
[2018-09-08] MEDS ORDERED: chlordiazePOXIDE HCL 10 MG CAPSULE PO SCH (17:00)
== END 2018-09-08 09:10 | disposition home or self-care (01) | DRG 775 ==
LOC: YASAS 09:07 → Y6N 11:04
PROVIDERS: ADMIT Surgery; ATTEND Surgery
PROC: HZ2ZZZZ Detoxification Services for Substance Abuse Treatment (ICD-10-PCS; principal; 2018-09-05)
DX: F10.230 Alcohol dependence with withdrawal, uncomplicated (principal); F10.220 Alcohol dependence with intoxication, uncomplicated; F10.24 Alcohol dependence with alcohol-induced mood disorder; F10.282 Alcohol dependence with alcohol-induced sleep disorder; F33.1 Major depressive disorder, recurrent, moderate; F41.9 Anxiety disorder, unspecified; F19.24 Other psychoactive substance dependence with psychoactive substance-induced mood disorder; I69.354 Hemiplegia and hemiparesis following cerebral infarction affecting left non-dominant side; J45.909 Unspecified asthma, uncomplicated; G47.00 Insomnia, unspecified; G40.89 Other seizures; R00.0 Tachycardia, unspecified; Z79.01 Long term (current) use of anticoagulants; Z86.79 Personal history of other diseases of the circulatory system; Z86.718 Personal history of other venous thrombosis and embolism; Z86.711 Personal history of pulmonary embolism; Z95.828 Presence of other vascular implants and grafts; Z91.5 Personal history of self-harm
CPT/HCPCS: 36415; 80053; 85027; 86593

== ENCOUNTER 2019-02-06 09:20 | Inpatient (IN) | payer OTHER ==
[2019-02-06 09:57] VITALS: BMI 28.1
--- NOTE | 2019-02-06 10:44 | HP ---
CIWA Score Nausea/Vomitin Muscle Tremors: 3 Anxiety: 2 Agitation: 2 Paroxysmal Sweats: 1-Minimal Palms Moist Orientation: 1-Uncertain about Date Tacttile Disturbances: 0-None Auditory Disturbances: 0-None Visual Disturbances: 2-Mild Sensitivity Headache: 2-Mild CIWA-Ar Total Score: 16 - Admission Criteria OASAS Guidelines: Admission for Medically Managed Detox: Requires at least one of the followin. CIWA greater than 12 2. Seizures within the past 24 hours 3. Delirium tremens within the past 24 hours 4. Hallucinations within the past 24 hours 5. Acute intervention needed for co occurring medical disorder 6. Acute intervention needed for co occurring psychiatric disorder 7. Severe withdrawal that cannot be handled at a lower level of care (continued vomiting, continued diarrhea, abnormal vital signs) requiring intravenous medication and/or fluids 8. Patient presents the following: CIWA greater than 12 Admission Criteria Met: Admission criteria met Admission ROS S - HPI Chief Complaint: I NEED TO STOP DRINKING, FOR REAL Allergies/Adverse Reactions: Allergies Allergy/AdvReac Type Severity Reaction Status Date / Time No Known Allergies Allergy Verified 02/06/19 10:12 History of Present Illness: 38 YO MALE ETOH USE SINCE AGE 11 DRINKING 2 PINTS VODKA DAILY DC FOR 6 MOS IN 2019 - UNSURE HOW WENT TO DETX AND DISCHARGED RELPASED IN NOVEMBER - Ebola screening Have you traveled outside of the country in the last 21 days: No (N) Have you had contact with anyone from an Ebola affected area: No Do you have a fever: No - Review of Systems Constitutional: Changes in sleep EENT: reports: No Symptoms Reported Respiratory: reports: No Symptoms reported Cardiac: reports: No Symptoms Reported GI: reports: Nausea, Abdominal cramping : reports: No Symptoms Reported Musculoskeletal: reports: No Symptoms Reported Integumentary: reports: No Symptoms Reported Neuro: reports: Seizure, Tremors Endocrine: reports: No Symptoms Reported Hematology: reports: No Symptoms Reported Psychiatric: reports: Anxious Patient History - Patient Medical History Hx Anemia: No Hx Asthma: No Hx Chronic Obstructive Pulmonary Disease (COPD): No Hx Cancer: No Hx Cardiac Disorders: No Hx Congestive Heart Failure: No Hx Hypertension: No Hx Hypercholesterolemia: No Hx Pacemaker: No HX Cerebrovascular Accident: Yes (MINI STROKE IN 2010 WITH SLIGHT WEAKNESS TO LEFT SIDE) Hx Seizures: Yes (2017 on keppra) Hx Dementia: No Hx Diabetes: No Hx Gastrointestinal Disorders: No Hx Liver Disease: No Hx Genitourinary Disorders: No Hx Sexually Transmitted Disorders: No Hx Renal Disease (ESRD): No Hx Thyroid Disease: No Hx Human Immunodeficiency Virus (HIV): No (NEGATIVE HX) Hx Hepatitis C: No (negative) Hx Depression: Yes (EFFEXOR - PSYCH DR Pope) Hx Suicide Attempt: No (denies) Hx Bipolar Disorder: No Hx Schizophrenia: No - Patient Surgical History Past Surgical History: Yes Hx Neurologic Surgery: No Hx Cataract Extraction: No Hx Cardiac Surgery: Yes (IVC FILTER IN RT GROIN 2011) Hx Lung Surgery: No Hx Breast Surgery: No Hx Breast Biopsy: No Hx Abdominal Surgery: No Hx Appendectomy: No Hx Cholecystectomy: No Hx Genitourinary Surgery: No Hx Section: No Hx Orthopedic Surgery: No Other Surgical History: IVC filter in 2011/stroke in 2011 Anesthesia Reaction: No - PPD History Date: 09/07/18 Results: 0 mm - Smoking Cessation Smoking history: Never smoked Have you smoked in the past 12 months: No Aproximately how many cigarettes per day: 0 Cigars Per Day: 0 Hx Chewing Tobacco Use: No - Substances abused Alcohol Substance route: Oral Frequency: Daily Amount used: 2pints of vodka Age of first use: 11 Date of last use: 02/06/19 Family Disease History - Family Disease History Family Disease History: Other: Grandparent (HTN), Father (, ?drug use) Admission Physical Exam BHS - Vital Signs Vital Signs: Vital Signs - 24 hr 02/06/19 09:54 Temperature 97.9 F Pulse Rate 91 H Respiratory 14 Rate Blood Pressure 109/64 - Physical General Appearance: Yes: Nourished, Alcohol on Breath, Tremorous, Anxious HEENTM: Yes: EOMI, Normocephalic Respiratory: Yes: Within Normal Limits, Chest Non-Tender, Lungs Clear Neck: Yes: No masses,lesions,Nodules Breast: Yes: Breast Exam Deferred Cardiology: Yes: Regular Rhythm, Regular Rate, S1, S2 Abdominal: Yes: Normal Bowel Sounds, Non Tender, Flat Genitourinary: Yes: Within Normal Limits Back: Yes: Within Normal Limits, Normal Inspection Musculoskeletal: Yes: full range of Motion, Gait Steady Extremities: Yes: Normal Capillary Refill, Normal Inspection Neurological: Yes: steam pan sponger II-XII NML intact, Motor Strength 5/5, Normal Mood/Affect Integumentary: Yes: Within Normal Limits - Diagnostic (1) Anxiety Current Visit: Yes Status: Chronic (2) Alcohol dependence with uncomplicated withdrawal Current Visit: Yes Status: Acute (3) History of pulmonary embolism Current Visit: Yes Status: Chronic (4) Old cerebrovascular accident (CVA) without late effect Current Visit: Yes Status: Chronic (5) Seizure disorder Current Visit: Yes Status: Chronic Breathalyzer - Breathalyzer Breathalyzer: 0.119 Urine Drug Screen - Test Device Lot number: [id number] Expiration date: 11/12/20 - Control Is test valid?: Yes - Results Drug screen NEGATIVE: No Urine drug screen results: BZO-Benzodiazepines Inpatient Rehab Admission - Rehab Decision to Admit Inpatient rehab admission?: No
[2019-02-06] MEDS ORDERED: chlordiazePOXIDE HCL 25 MG CAPSULE PO PRN (10:52)
[2019-02-06] MEDS ORDERED: MAG HYDROX/AL HYDROX/SIMETH 30 ML UNIT-DOSE CUP PO PRN (10:52)
[2019-02-06] MEDS ORDERED: MENTHOL/PHENOL 1 EACH UD MM PRN (10:52)
[2019-02-06] MEDS ORDERED: MAGNESIUM CITRATE 300 ML BOTTLE PO PRN (10:52)
[2019-02-06] MEDS ORDERED: hydrOXYzine PAMOATE 25 MG CAPSULE (FP) PO PRN (10:52)
[2019-02-06] MEDS ORDERED: IBUPROFEN 400 MG TABLET (FP) PO PRN (10:52)
[2019-02-06] MEDS ORDERED: MELATONIN 5 MG TABLETS PO PRN (10:52)
[2019-02-06] MEDS ORDERED: BISMUTH SUBSALICYLATE 524 MG/30 ML UD PO PRN (10:52)
[2019-02-06] MEDS ORDERED: ACETAMINOPHEN 325 MG TABLET (FP) PO PRN (10:52)
[2019-02-06] MEDS ORDERED: METHOCARBAMOL 500 MG TABLET PO PRN (10:52)
[2019-02-06] MEDS: chlordiazePOXIDE HCL 25 MG CAPSULE PO SCH ×3 (12:19→22:20)
[2019-02-06] MEDS: VENLAFAXINE HCL 75 MG E.R. CAPSULES (FP) PO SCH (13:52)
[2019-02-06] MEDS: THIAMINE HCL 100 MG TABLET (FP) PO SCH (22:20)
[2019-02-06] MEDS: RIVAROXABAN 15 MG TABLET PO SCH (22:20)
[2019-02-06] MEDS: levETIRAcetam 250 MG TABLET (FP) PO SCH (22:20)
[2019-02-07] MEDS: chlordiazePOXIDE HCL 25 MG CAPSULE PO SCH ×4 (05:54→22:18)
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
[2019-02-07 09:58] LABS: ALBUMIN 3.6 g/dl (3.4-5.0); BILIRUBIN,TOTAL 0.6 mg/dL (0.2-1); BLOOD UREA NITROGEN 12.7 mg/dL (7-18); CALCIUM 9.1 mg/dL (8.5-10.1); POTASSIUM 4.1 mmol/L (3.5-5.1); TOT PROT 6.8 g/dl (6.4-8.2)
[2019-02-07] MEDS: levETIRAcetam 250 MG TABLET (FP) PO SCH ×2 (10:14→22:18)
[2019-02-07] MEDS: PRENATAL VITAMINS W/ FOLIC ACID TABLET (FP) PO SCH (10:14)
[2019-02-07] MEDS: VENLAFAXINE HCL 75 MG E.R. CAPSULES (FP) PO SCH (10:14)
[2019-02-07] MEDS: RIVAROXABAN 15 MG TABLET PO SCH ×2 (10:15→22:18)
[2019-02-07] MEDS: ACETAMINOPHEN 325 MG TABLET (FP) PO PRN (10:17)
[2019-02-07 10:18] LABS: HEMATOCRIT 37.8 % (35.4-49); HEMOGLOBIN 12.5 GM/dL (11.7-16.9); MCH 28.7 pg (25.7-33.7); MEAN CELL VOLUME 86.9 fl (80-96); MEAN PLT VOLUME 7.7 fl (7.5-11.1); PLATELET COUNT 263 K/MM3 (134-434); RBC 4.35 M/mm3 (4.00-5.60); RDW 19.9 % (11.9-15.9); WHITE BLOOD COUNT 3.8 K/mm3 (4.0-10.0)
[2019-02-07] MEDS: MAGNESIUM HYDROX 2400MG/30ML ORAL SUSPENSION 30 ML CUP PO PRN (10:18)
--- NOTE | 2019-02-07 11:10 | PN ---
S CIWA - CIWA Score Nausea/Vomitin-No Nausea/No Vomiting Muscle Tremors: 4-Moderate,w/Arms Extend Anxiety: 2 Agitation: 3 Paroxysmal Sweats: 3 Orientation: 0-Oriented Tacttile Disturbances: 0-None Auditory Disturbances: 0-None Visual Disturbances: 0-None Headache: 0-None Present CIWA-Ar Total Score: 12 BHS Progress Note (SOAP) Subjective: sweats shakes anxiety interrupted sleep Objective: 02/07/19 11:09 Vital Signs Temperature 97.9 F 02/07/19 09:28 Pulse Rate 72 02/07/19 09:28 Respiratory Rate 18 02/07/19 09:28 Blood Pressure 111/70 02/07/19 09:28 O2 Sat by Pulse Oximetry (%) Laboratory Tests 02/07/19 02/07/19 02/07/19 07:00 07:00 07:00 WBC 3.8 L RBC 4.35 Hgb 12.5 Hct 37.8 MCV 86.9 MCH 28.7 MCHC 33.0 RDW 19.9 H Plt Count 263 D MPV 7.7 Sodium 140 Potassium 4.1 Chloride 103 Carbon Dioxide 32 Anion Gap 6 L BUN 12.7 Creatinine 1.0 Est GFR (CKD-EPI)AfAm 109.40 Est GFR (CKD-EPI)NonAf 94.39 Random Glucose 88 Calcium 9.1 Total Bilirubin 0.6 AST 42 H ALT 34 Alkaline Phosphatase 84 Total Protein 6.8 Albumin 3.6 RPR Titer Nonreactive labs noted aaox3 ambulating no acute distress Assessment: 02/07/19 11:09 withdrawal sx Plan: continue detox increase fluids
[2019-02-07] MEDS: traZODone HCL 100 MG TABLET (FP) PO SCH (22:19)
[2019-02-07] MEDS: THIAMINE HCL 100 MG TABLET (FP) PO SCH (22:19)
[2019-02-08] MEDS: chlordiazePOXIDE HCL 25 MG CAPSULE PO SCH ×4 (06:16→22:08)
[2019-02-08] MEDS: levETIRAcetam 250 MG TABLET (FP) PO SCH ×2 (10:11→22:08)
[2019-02-08] MEDS: PRENATAL VITAMINS W/ FOLIC ACID TABLET (FP) PO SCH (10:11)
[2019-02-08] MEDS: VENLAFAXINE HCL 75 MG E.R. CAPSULES (FP) PO SCH (10:12)
[2019-02-08] MEDS: RIVAROXABAN 15 MG TABLET PO SCH ×2 (10:12→22:08)
--- NOTE | 2019-02-08 11:47 | PN ---
[facility] CIWA - CIWA Score Nausea/Vomitin-No Nausea/No Vomiting Muscle Tremors: 3 Anxiety: 2 Agitation: 3 Paroxysmal Sweats: 3 Orientation: 0-Oriented Tacttile Disturbances: 0-None Auditory Disturbances: 0-None Visual Disturbances: 0-None Headache: 0-None Present CIWA-Ar Total Score: 11 S Progress Note (SOAP) Subjective: sweats agitation anxiety interrupted sleep Objective: 02/08/19 11:46 Vital Signs Temperature 97.2 F L 02/08/19 09:35 Pulse Rate 79 02/08/19 09:35 Respiratory Rate 18 02/08/19 09:35 Blood Pressure 102/53 L 02/08/19 09:35 O2 Sat by Pulse Oximetry (%) Laboratory Tests 02/07/19 02/07/19 02/07/19 07:00 07:00 07:00 WBC 3.8 L RBC 4.35 Hgb 12.5 Hct 37.8 MCV 86.9 MCH 28.7 MCHC 33.0 RDW 19.9 H Plt Count 263 D MPV 7.7 Sodium 140 Potassium 4.1 Chloride 103 Carbon Dioxide 32 Anion Gap 6 L BUN 12.7 Creatinine 1.0 Est GFR (CKD-EPI)AfAm 109.40 Est GFR (CKD-EPI)NonAf 94.39 Random Glucose 88 Calcium 9.1 Total Bilirubin 0.6 AST 42 H ALT 34 Alkaline Phosphatase 84 Total Protein 6.8 Albumin 3.6 RPR Titer Nonreactive labs noted aaox3 ambulating no acute distress Assessment: 02/08/19 11:47 withdrawal sx Plan: continue detox increase fluids
[2019-02-08] MEDS: THIAMINE HCL 100 MG TABLET (FP) PO SCH (22:08)
[2019-02-08] MEDS: traZODone HCL 100 MG TABLET (FP) PO SCH (22:08)
[2019-02-09] MEDS ORDERED: chlordiazePOXIDE HCL 10 MG CAPSULE PO PRN
[2019-02-09] MEDS: chlordiazePOXIDE HCL 10 MG CAPSULE PO SCH ×4 (06:02→22:43)
[2019-02-09] MEDS: PRENATAL VITAMINS W/ FOLIC ACID TABLET (FP) PO SCH (10:11)
[2019-02-09] MEDS: levETIRAcetam 250 MG TABLET (FP) PO SCH ×2 (10:11→22:13)
[2019-02-09] MEDS: RIVAROXABAN 15 MG TABLET PO SCH ×2 (10:12→22:15)
[2019-02-09] MEDS: VENLAFAXINE HCL 75 MG E.R. CAPSULES (FP) PO SCH (10:12)
[2019-02-09] MEDS: MAGNESIUM HYDROX 2400MG/30ML ORAL SUSPENSION 30 ML CUP PO PRN (10:14)
--- NOTE | 2019-02-09 10:30 | PN ---
[facility] CIWA - CIWA Score Nausea/Vomitin-No Nausea/No Vomiting Muscle Tremors: 2 Anxiety: 1-Mildly Anxious Agitation: 2 Paroxysmal Sweats: 2 Orientation: 0-Oriented Tacttile Disturbances: 0-None Auditory Disturbances: 0-None Visual Disturbances: 0-None Headache: 0-None Present CIWA-Ar Total Score: 7 BHS Progress Note (SOAP) Subjective: sweats anxiety Objective: 02/09/19 10:30 Vital Signs Temperature 97.3 F L 02/09/19 09:28 Pulse Rate 58 L 02/09/19 09:28 Respiratory Rate 18 02/09/19 09:28 Blood Pressure 99/56 L 02/09/19 09:28 O2 Sat by Pulse Oximetry (%) aaox3 ambulating no acute distress Assessment: 02/09/19 10:31 withdrawal sx Plan: continue detox increase fluids
[2019-02-09] MEDS: ACETAMINOPHEN 325 MG TABLET (FP) PO PRN (17:23)
[2019-02-09] MEDS: traZODone HCL 100 MG TABLET (FP) PO SCH (22:13)
[2019-02-09] MEDS: THIAMINE HCL 100 MG TABLET (FP) PO SCH (22:13)
[2019-02-10] MEDS ORDERED: chlordiazePOXIDE HCL 10 MG CAPSULE PO SCH (05:00)
[2019-02-10 07:51] VITALS: BP 99/68; PULSE 84; TEMP 96.6
--- NOTE | 2019-02-10 09:28 | DS ---
[facility] Detox Discharge Summary Admission Date: 02/06/19 Discharge Date: 02/10/19 - History Present History: Alcohol Dependence - Physical Exam Results Vital Signs: Vital Signs Temperature 96.6 F L 02/10/19 07:51 Pulse Rate 84 02/10/19 07:51 Respiratory Rate 17 02/10/19 07:51 Blood Pressure 99/68 02/10/19 07:51 O2 Sat by Pulse Oximetry (%) Pertinent Admission Physical Exam Findings: pt arrived in withdrawals Vital Signs Temperature 96.6 F L 02/10/19 07:51 Pulse Rate 84 02/10/19 07:51 Respiratory Rate 17 02/10/19 07:51 Blood Pressure 99/68 02/10/19 07:51 O2 Sat by Pulse Oximetry (%) Laboratory Tests 02/07/19 02/07/19 02/07/19 07:00 07:00 07:00 WBC 3.8 L RBC 4.35 Hgb 12.5 Hct 37.8 MCV 86.9 MCH 28.7 MCHC 33.0 RDW 19.9 H Plt Count 263 D MPV 7.7 Sodium 140 Potassium 4.1 Chloride 103 Carbon Dioxide 32 Anion Gap 6 L BUN 12.7 Creatinine 1.0 Est GFR (CKD-EPI)AfAm 109.40 Est GFR (CKD-EPI)NonAf 94.39 Random Glucose 88 Calcium 9.1 Total Bilirubin 0.6 AST 42 H ALT 34 Alkaline Phosphatase 84 Total Protein 6.8 Albumin 3.6 RPR Titer Nonreactive pt today is aaox3 ambulating no acute distress no s/s of withdrawals - Treatment Hospital Course: Detox Protocol Followed, Detoxed Safely, Responded well, Discharged Condition Good, Rehab Referral Accepted Patient has Accepted a Rehab Referral to: pt declined; referral provided - Medication Discharge Medications: Ambulatory Orders levETIRAcetam [Keppra -] 750 mg PO BID #60 tablet 06/23/15 Rivaroxaban [Xarelto -] 15 mg PO BID 09/05/18 Venlafaxine HCl ER [Effexor Xr -] 225 mg PO DAILY 09/05/18 Folic Acid 1 mg PO DAILY 02/06/19 Tamsulosin HCl [Flomax] 0.4 mg PO DAILY 02/06/19 Thiamine HCl [Vitamin B-1] 100 mg PO DAILY 02/06/19 - Diagnosis (1) Alcohol dependence with uncomplicated withdrawal Current Visit: Yes Status: Chronic (2) Anxiety Current Visit: Yes Status: Chronic (3) History of pulmonary embolism Current Visit: Yes Status: Chronic (4) Seizure disorder Current Visit: Yes Status: Chronic (5) Old cerebrovascular accident (CVA) without late effect Current Visit: Yes Status: Resolved (6) Alcohol-induced mood disorder Current Visit: No Status: Acute (7) Alcohol-induced sleep disorder Current Visit: No Status: Acute (8) Drug-induced mood disorder Current Visit: No Status: Acute (9) Insomnia Current Visit: No Status: Acute (10) Alcohol dependence with uncomplicated intoxication Current Visit: Yes Status: Chronic (11) Asthma Current Visit: Yes Status: Chronic Qualifiers: Asthma severity: mild Asthma complication type: unspecified (12) History of deep venous thrombosis (DVT) of distal vein of right lower extremity Current Visit: No Status: Chronic (13) History of fall Current Visit: No Status: Chronic (14) Left-sided weakness Current Visit: No Status: Chronic (15) MDD (major depressive disorder) Current Visit: Yes Status: Chronic (16) MDD (major depressive disorder), recurrent episode, moderate Current Visit: No Status: Chronic (17) S/P IVC filter Current Visit: No Status: Chronic (18) Syncope Current Visit: No Status: Chronic - AMA Did Patient Leave Against Medical Advice: No
[2019-02-11] MEDS ORDERED: chlordiazePOXIDE HCL 10 MG CAPSULE PO ONE (05:00)
== END 2019-02-10 09:05 | disposition home or self-care (01) | DRG 775 ==
LOC: YASAS 09:20 → Y6N 11:37
PROVIDERS: ADMIT Surgery; ATTEND Surgery
PROC: HZ2ZZZZ Detoxification Services for Substance Abuse Treatment (ICD-10-PCS; principal; 2019-02-06)
DX: F10.230 Alcohol dependence with withdrawal, uncomplicated (principal); F10.220 Alcohol dependence with intoxication, uncomplicated; F19.24 Other psychoactive substance dependence with psychoactive substance-induced mood disorder; F10.24 Alcohol dependence with alcohol-induced mood disorder; F10.282 Alcohol dependence with alcohol-induced sleep disorder; F33.1 Major depressive disorder, recurrent, moderate; F41.9 Anxiety disorder, unspecified; J45.20 Mild intermittent asthma, uncomplicated; G40.909 Epilepsy, unspecified, not intractable, without status epilepticus; I69.854 Hemiplegia and hemiparesis following other cerebrovascular disease affecting left non-dominant side; Z86.711 Personal history of pulmonary embolism; Z86.718 Personal history of other venous thrombosis and embolism; Z79.01 Long term (current) use of anticoagulants; Z95.828 Presence of other vascular implants and grafts; Z91.81 History of falling
CPT/HCPCS: 36415; 80053; 85027; 86593

== ENCOUNTER 2021-11-08 13:01 | Inpatient (IN) | payer OTHER ==
[2021-11-08 15:32] VITALS: BMI 28.3
[2021-11-08] MEDS ORDERED: BENZOCAINE/MENTHOL (CHLORASEPTIC ) LOZENGE MM PRN (16:08)
[2021-11-08] MEDS ORDERED: guaiFENesin 200 MG/10 ML 10 ML UNIT-DOSE CUPS PO PRN (16:08)
[2021-11-08] MEDS ORDERED: LOPERAMIDE HCL 2 MG CAPSULE PO PRN (16:08)
[2021-11-08] MEDS ORDERED: MAGNESIUM HYDROX 2400MG/30ML ORAL SUSPENSION 30 ML CUP PO PRN (16:08)
[2021-11-08] MEDS ORDERED: P-EPHED 60MG/TRIPROLIDI 2.5MG TABLET PO PRN (16:08)
[2021-11-08] MEDS ORDERED: ACETAMINOPHEN 325 MG TABLET (FP) PO PRN ×2 (16:08)
[2021-11-08] MEDS ORDERED: ONDANSETRON *ODT* 4 MG TABLET SL PRN (16:08)
[2021-11-08] MEDS ORDERED: MAGNESIUM CITRATE 300 ML BOTTLE PO PRN (16:08)
[2021-11-08] MEDS ORDERED: DICYCLOMINE HCL 10 MG CAPSULE PO PRN (16:08)
[2021-11-08] MEDS: FOLIC ACID 1 MG TABLET (FP) PO SCH (18:56)
[2021-11-08] MEDS: METHOCARBAMOL 500 MG TABLET PO PRN (18:56)
[2021-11-08] MEDS: levETIRAcetam 500 MG TABLET (FP) PO SCH (22:26)
[2021-11-08] MEDS: APIXABAN 5 MG TABLET PO SCH (22:27)
[2021-11-08] MEDS: THIAMINE HCL 100 MG TABLET (FP) PO SCH (22:27)
[2021-11-08] MEDS: MELATONIN 5 MG TABLETS PO PRN (22:27)
[2021-11-09] MEDS: MAG HYDROX/AL HYDROX/SIMETH 30 ML UNIT-DOSE CUP PO PRN (08:39)
[2021-11-09 08:47] LABS: HEMATOCRIT 43.2 % (35.4-49); HEMOGLOBIN 14.1 GM/dL (11.7-16.9); MCH 31.3 pg (25.7-33.7); MCHC 32.7 g/dl (32.0-35.9); MEAN CELL VOLUME 95.7 fl (80-96); MEAN PLT VOLUME 7.8 fl (7.5-11.1); PLATELET COUNT 282 10^3/uL (134-434); RBC 4.51 M/mm3 (4.00-5.60); WHITE BLOOD COUNT 5.1 K/mm3 (4.0-10.0)
[2021-11-09 09:01] LABS: CALCIUM 9.6 mg/dL (8.5-10.1)
[2021-11-09 09:02] LABS: ALBUMIN 3.9 g/dl (3.4-5.0); BLOOD UREA NITROGEN 13.3 mg/dL (7-18)
[2021-11-09 09:05] LABS: TOT PROT 7.4 g/dl (6.4-8.2)
[2021-11-09 09:06] LABS: BILIRUBIN,TOTAL 0.3 mg/dL (0.2-1)
[2021-11-09] MEDS: levETIRAcetam 500 MG TABLET (FP) PO SCH ×2 (10:35→22:13)
[2021-11-09] MEDS: FOLIC ACID 1 MG TABLET (FP) PO SCH (10:36)
[2021-11-09] MEDS: APIXABAN 5 MG TABLET PO SCH ×2 (10:36→22:13)
[2021-11-09] MEDS: PRENATAL VITAMINS W/ FOLIC ACID TABLET (FP) PO SCH (10:36)
[2021-11-09] MEDS: METHOCARBAMOL 500 MG TABLET PO PRN (10:38)
[2021-11-09] MEDS ORDERED: chlordiazePOXIDE HCL 25 MG CAPSULE PO PRN (13:09)
[2021-11-09] MEDS: chlordiazePOXIDE HCL 25 MG CAPSULE PO SCH ×2 (17:54→22:15)
[2021-11-09] MEDS: THIAMINE HCL 100 MG TABLET (FP) PO SCH (22:13)
[2021-11-10] MEDS: chlordiazePOXIDE HCL 10 MG CAPSULE PO SCH ×4 (05:38→22:16)
[2021-11-10] MEDS: FOLIC ACID 1 MG TABLET (FP) PO SCH (10:09)
[2021-11-10] MEDS: levETIRAcetam 500 MG TABLET (FP) PO SCH ×2 (10:09→22:13)
[2021-11-10] MEDS: PRENATAL VITAMINS W/ FOLIC ACID TABLET (FP) PO SCH (10:09)
[2021-11-10] MEDS: APIXABAN 5 MG TABLET PO SCH ×2 (10:09→22:14)
[2021-11-10] MEDS: THIAMINE HCL 100 MG TABLET (FP) PO SCH (22:14)
[2021-11-11] MEDS: chlordiazePOXIDE HCL 10 MG CAPSULE PO SCH ×2 (05:54→17:32)
[2021-11-11] MEDS: MAG HYDROX/AL HYDROX/SIMETH 30 ML UNIT-DOSE CUP PO PRN (05:56)
[2021-11-11] MEDS: PRENATAL VITAMINS W/ FOLIC ACID TABLET (FP) PO SCH (10:26)
[2021-11-11] MEDS: FOLIC ACID 1 MG TABLET (FP) PO SCH (10:27)
[2021-11-11] MEDS: APIXABAN 5 MG TABLET PO SCH ×2 (10:27→22:18)
[2021-11-11] MEDS: levETIRAcetam 500 MG TABLET (FP) PO SCH ×2 (10:27→22:18)
[2021-11-11] MEDS: chlordiazePOXIDE HCL 10 MG CAPSULE PO PRN ×3 (10:29→20:24)
[2021-11-11] MEDS: METHOCARBAMOL 500 MG TABLET PO PRN ×2 (14:28→22:19)
[2021-11-11] MEDS: MELATONIN 5 MG TABLETS PO PRN (22:18)
[2021-11-11] MEDS: THIAMINE HCL 100 MG TABLET (FP) PO SCH (22:18)
[2021-11-12] MEDS ORDERED: chlordiazePOXIDE HCL 10 MG CAPSULE PO ONE (05:00)
[2021-11-12 05:55] VITALS: PULSE 90
[2021-11-12 08:57] VITALS: BP 112/71; TEMP 97.5
[2021-11-12] MEDS: levETIRAcetam 500 MG TABLET (FP) PO SCH (10:02)
[2021-11-12] MEDS: FOLIC ACID 1 MG TABLET (FP) PO SCH (10:02)
[2021-11-12] MEDS: PRENATAL VITAMINS W/ FOLIC ACID TABLET (FP) PO SCH (10:02)
[2021-11-12] MEDS: APIXABAN 5 MG TABLET PO SCH (10:02)
== END 2021-11-12 10:28 | disposition home or self-care (01) | DRG 774 ==
LOC: YASAS 13:01 → Y3N 17:56
PROVIDERS: ADMIT Allergy & Immunology; ATTEND Surgery
PROC: HZ2ZZZZ Detoxification Services for Substance Abuse Treatment (ICD-10-PCS; principal; 2021-11-08)
DX: F10.230 Alcohol dependence with withdrawal, uncomplicated (principal); F14.20 Cocaine dependence, uncomplicated; F12.20 Cannabis dependence, uncomplicated; F41.1 Generalized anxiety disorder; F32.A Depression, unspecified; G40.909 Epilepsy, unspecified, not intractable, without status epilepticus; J45.20 Mild intermittent asthma, uncomplicated; I69.854 Hemiplegia and hemiparesis following other cerebrovascular disease affecting left non-dominant side; Z86.718 Personal history of other venous thrombosis and embolism; Z79.01 Long term (current) use of anticoagulants; Z86.711 Personal history of pulmonary embolism
CPT/HCPCS: 36415; 80053; 85027; 86780; 93005; 93010; C9803-CS; U0003; U0005

== ENCOUNTER 2022-02-03 18:21 | Inpatient (IN) | payer OTHER ==
[2022-02-03 20:34] VITALS: BMI 28.3
[2022-02-03] MEDS ORDERED: MAG HYDROX/AL HYDROX/SIMETH 30 ML UNIT-DOSE CUP PO PRN (22:30)
[2022-02-03] MEDS ORDERED: IBUPROFEN 400 MG TABLET (FP) PO PRN (22:30)
[2022-02-03] MEDS ORDERED: LOPERAMIDE HCL 2 MG CAPSULE PO PRN (22:30)
[2022-02-03] MEDS ORDERED: BISMUTH SUBSALICYLATE 524 MG/30 ML PO PRN (22:30)
[2022-02-03] MEDS ORDERED: ONDANSETRON *ODT* 4 MG TABLET SL PRN (22:30)
[2022-02-03] MEDS ORDERED: MAGNESIUM HYDROX 2400MG/30ML ORAL SUSPENSION 30 ML CUP PO PRN (22:30)
[2022-02-03] MEDS ORDERED: ACETAMINOPHEN 325 MG TABLET (FP) PO PRN ×2 (22:30)
[2022-02-03] MEDS ORDERED: IBUPROFEN 600 MG TABLET (FP) PO PRN (22:30)
[2022-02-03] MEDS ORDERED: METHOCARBAMOL 500 MG TABLET PO PRN (22:30)
[2022-02-03] MEDS ORDERED: DICYCLOMINE HCL 10 MG CAPSULE PO PRN (22:30)
[2022-02-03] MEDS ORDERED: MAGNESIUM CITRATE 300 ML BOTTLE PO PRN (22:30)
[2022-02-03] MEDS ORDERED: BENZOCAINE/MENTHOL (CHLORASEPTIC ) LOZENGE MM PRN (22:30)
[2022-02-03] MEDS ORDERED: chlordiazePOXIDE HCL 25 MG CAPSULE PO PRN (22:34)
[2022-02-03] MEDS: chlordiazePOXIDE HCL 25 MG CAPSULE PO SCH (23:55)
[2022-02-04 00:01] VITALS: RESP 18
[2022-02-04] MEDS: chlordiazePOXIDE HCL 25 MG CAPSULE PO SCH ×2 (05:35→10:10)
[2022-02-04 09:10] VITALS: BP 111/70; PULSE 74; TEMP 97.4
[2022-02-04] MEDS ORDERED: PRENATAL VITAMINS W/ FOLIC ACID TABLET (FP) PO SCH (10:00)
[2022-02-04] MEDS ORDERED: APIXABAN 5 MG TABLET PO SCH (12:00)
[2022-02-04] MEDS ORDERED: levETIRAcetam 250 MG TABLET PO SCH (12:15)
[2022-02-04] MEDS ORDERED: TAMSULOSIN HCL 0.4 MG CAP PO SCH (12:15)
[2022-02-04] MEDS ORDERED: THIAMINE HCL 100 MG TABLET (FP) PO SCH (22:00)
[2022-02-04] MEDS ORDERED: MELATONIN 5 MG TABLETS PO SCH (22:00)
[2022-02-05] MEDS ORDERED: chlordiazePOXIDE HCL 25 MG CAPSULE PO SCH (05:00)
[2022-02-06] MEDS ORDERED: chlordiazePOXIDE HCL 10 MG CAPSULE PO PRN
[2022-02-06] MEDS ORDERED: chlordiazePOXIDE HCL 10 MG CAPSULE PO SCH (05:00)
[2022-02-07] MEDS ORDERED: chlordiazePOXIDE HCL 10 MG CAPSULE PO SCH (05:00)
[2022-02-08] MEDS ORDERED: chlordiazePOXIDE HCL 10 MG CAPSULE PO ONE (05:00)
== END 2022-02-04 12:31 | disposition left against medical advice (07) | DRG 770 ==
LOC: YASAS 18:21 → Y3N 22:56
PROVIDERS: ADMIT Allergy & Immunology; ATTEND Surgery
PROC: HZ2ZZZZ Detoxification Services for Substance Abuse Treatment (ICD-10-PCS; principal; 2022-02-04)
DX: F10.230 Alcohol dependence with withdrawal, uncomplicated (principal); F10.282 Alcohol dependence with alcohol-induced sleep disorder; F41.8 Other specified anxiety disorders; F32.A Depression, unspecified; G40.909 Epilepsy, unspecified, not intractable, without status epilepticus; J45.20 Mild intermittent asthma, uncomplicated; I69.854 Hemiplegia and hemiparesis following other cerebrovascular disease affecting left non-dominant side; Z86.718 Personal history of other venous thrombosis and embolism; Z86.711 Personal history of pulmonary embolism
CPT/HCPCS: C9803-CS; U0003; U0005

== ENCOUNTER 2022-02-26 11:35 | Inpatient (IN) | payer OTHER ==
[2022-02-26 13:10] VITALS: BMI 27.9
[2022-02-26] MEDS ORDERED: LOPERAMIDE HCL 2 MG CAPSULE PO PRN (15:05)
[2022-02-26] MEDS ORDERED: NICOTINE 10 MG CARTRIDGE (INHALER) IH PRN (15:05)
[2022-02-26] MEDS ORDERED: MAG HYDROX/AL HYDROX/SIMETH 30 ML UNIT-DOSE CUP PO PRN (15:05)
[2022-02-26] MEDS ORDERED: ONDANSETRON *ODT* 4 MG TABLET SL PRN (15:05)
[2022-02-26] MEDS ORDERED: IBUPROFEN 600 MG TABLET (FP) PO PRN (15:05)
[2022-02-26] MEDS ORDERED: MAGNESIUM HYDROX 2400MG/30ML ORAL SUSPENSION 30 ML CUP PO PRN (15:05)
[2022-02-26] MEDS ORDERED: chlordiazePOXIDE HCL 25 MG CAPSULE PO PRN ×2 (15:05→16:02)
[2022-02-26] MEDS ORDERED: IBUPROFEN 400 MG TABLET (FP) PO PRN (15:05)
[2022-02-26] MEDS ORDERED: BENZOCAINE/MENTHOL (CHLORASEPTIC ) LOZENGE MM PRN (15:05)
[2022-02-26] MEDS ORDERED: ACETAMINOPHEN 325 MG TABLET (FP) PO PRN ×2 (15:05)
[2022-02-26] MEDS ORDERED: METHOCARBAMOL 500 MG TABLET PO PRN (15:05)
[2022-02-26] MEDS ORDERED: NALOXONE HCL (KLOXXADO) 8 MG SPRAY NS PRN (15:05)
[2022-02-26] MEDS ORDERED: MAGNESIUM CITRATE 300 ML BOTTLE PO PRN (15:05)
[2022-02-26] MEDS ORDERED: BISMUTH SUBSALICYLATE 524 MG/30 ML PO PRN (15:05)
[2022-02-26] MEDS ORDERED: DICYCLOMINE HCL 10 MG CAPSULE PO PRN (15:05)
[2022-02-26 15:29] VITALS: RESP 18; TEMP 97.5
[2022-02-26] MEDS ORDERED: chlordiazePOXIDE HCL 25 MG CAPSULE PO SCH ×2 (17:00→23:00)
[2022-02-26 17:54] VITALS: BP 108/65; PULSE 102
[2022-02-26] MEDS ORDERED: hydrOXYzine PAMOATE 25 MG CAPSULE (FP) PO SCH (18:00)
[2022-02-26] MEDS ORDERED: THIAMINE HCL 100 MG TABLET (FP) PO SCH (22:00)
[2022-02-26] MEDS ORDERED: APIXABAN 5 MG TABLET PO SCH (22:00)
[2022-02-26] MEDS ORDERED: MELATONIN 5 MG TABLETS PO SCH (22:00)
[2022-02-27] MEDS ORDERED: TAMSULOSIN HCL 0.4 MG CAP PO SCH (08:30)
[2022-02-27] MEDS ORDERED: PRENATAL VITAMINS W/ FOLIC ACID TABLET (FP) PO SCH (10:00)
[2022-02-28] MEDS ORDERED: chlordiazePOXIDE HCL 25 MG CAPSULE PO SCH ×2 (05:00)
[2022-03-01] MEDS ORDERED: chlordiazePOXIDE HCL 10 MG CAPSULE PO PRN ×2
[2022-03-01] MEDS ORDERED: chlordiazePOXIDE HCL 10 MG CAPSULE PO SCH ×2 (05:00)
[2022-03-02] MEDS ORDERED: chlordiazePOXIDE HCL 10 MG CAPSULE PO SCH ×2 (05:00)
[2022-03-03] MEDS ORDERED: chlordiazePOXIDE HCL 10 MG CAPSULE PO ONE ×2 (05:00)
== END 2022-02-26 20:02 | disposition left against medical advice (07) | DRG 770 ==
LOC: YASAS 11:35 → Y3N 15:07
PROVIDERS: ADMIT Allergy & Immunology; ATTEND Surgery
PROC: HZ2ZZZZ Detoxification Services for Substance Abuse Treatment (ICD-10-PCS; principal; 2022-02-26)
DX: F10.230 Alcohol dependence with withdrawal, uncomplicated (principal); F14.10 Cocaine abuse, uncomplicated; F32.A Depression, unspecified; I69.854 Hemiplegia and hemiparesis following other cerebrovascular disease affecting left non-dominant side; Z86.718 Personal history of other venous thrombosis and embolism; Z86.711 Personal history of pulmonary embolism; Z86.69 Personal history of other diseases of the nervous system and sense organs

== ENCOUNTER 2022-04-19 09:32 | Inpatient (IN) | payer OTHER ==
[2022-04-19 10:02] VITALS: BMI 26.4
[2022-04-19] MEDS ORDERED: chlordiazePOXIDE HCL 25 MG CAPSULE PO PRN (10:22)
[2022-04-19] MEDS ORDERED: ACETAMINOPHEN 325 MG TABLET (FP) PO PRN ×2 (10:22)
[2022-04-19] MEDS ORDERED: DICYCLOMINE HCL 10 MG CAPSULE PO PRN (10:22)
[2022-04-19] MEDS ORDERED: BENZOCAINE/MENTHOL (CHLORASEPTIC ) LOZENGE MM PRN (10:22)
[2022-04-19] MEDS ORDERED: MAG HYDROX/AL HYDROX/SIMETH 30 ML UNIT-DOSE CUP PO PRN (10:22)
[2022-04-19] MEDS ORDERED: BISMUTH SUBSALICYLATE 524 MG/30 ML PO PRN (10:22)
[2022-04-19] MEDS ORDERED: NALOXONE HCL (KLOXXADO) 8 MG SPRAY NS PRN (10:22)
[2022-04-19] MEDS ORDERED: MAGNESIUM HYDROX 2400MG/30ML ORAL SUSPENSION 30 ML CUP PO PRN (10:22)
[2022-04-19] MEDS ORDERED: MAGNESIUM CITRATE 300 ML BOTTLE PO PRN (10:22)
[2022-04-19] MEDS ORDERED: ONDANSETRON *ODT* 4 MG TABLET SL PRN (10:22)
[2022-04-19] MEDS ORDERED: LOPERAMIDE HCL 2 MG CAPSULE PO PRN (10:22)
[2022-04-19] MEDS: chlordiazePOXIDE HCL 25 MG CAPSULE PO SCH ×3 (10:52→22:18)
[2022-04-19] MEDS: TAMSULOSIN HCL 0.4 MG CAP PO SCH (11:10)
[2022-04-19] MEDS: levETIRAcetam 500 MG TABLET (FP) PO SCH ×2 (11:10→22:17)
[2022-04-19] MEDS: APIXABAN 5 MG TABLET PO SCH ×2 (11:10→22:17)
[2022-04-19] MEDS: QUEtiapine FUMARATE 50 MG TABLET PO SCH (22:17)
[2022-04-19] MEDS: THIAMINE HCL 100 MG TABLET (FP) PO SCH (22:17)
[2022-04-19] MEDS: MELATONIN 5 MG TABLETS PO SCH (22:21)
[2022-04-20] MEDS: chlordiazePOXIDE HCL 25 MG CAPSULE PO SCH ×4 (05:40→22:19)
[2022-04-20] MEDS: VENLAFAXINE HCL 75 MG E.R. CAPSULES PO SCH (10:13)
[2022-04-20] MEDS: levETIRAcetam 500 MG TABLET (FP) PO SCH ×2 (10:13→22:19)
[2022-04-20] MEDS: TAMSULOSIN HCL 0.4 MG CAP PO SCH (10:14)
[2022-04-20] MEDS: APIXABAN 5 MG TABLET PO SCH ×2 (10:14→22:19)
[2022-04-20] MEDS: PRENATAL VITAMINS W/ FOLIC ACID TABLET (FP) PO SCH (10:16)
[2022-04-20 11:33] LABS: HEMATOCRIT 42.6 % (35.4-49); HEMOGLOBIN 14.1 GM/dL (11.7-16.9); MCH 32.1 pg (25.7-33.7); MEAN PLT VOLUME 8.2 fl (7.5-11.1); PLATELET COUNT 203 10^3/uL (134-434); RBC 4.39 M/mm3 (4.00-5.60); RDW 13.8 % (11.9-15.9); WHITE BLOOD COUNT 3.8 K/mm3 (4.0-10.0)
[2022-04-20 11:44] LABS: ALBUMIN 3.6 g/dl (3.4-5.0); CALCIUM 8.9 mg/dL (8.5-10.1)
[2022-04-20 11:48] LABS: CREATININE 0.7 mg/dL (0.55-1.3)
[2022-04-20] MEDS ORDERED: levETIRAcetam 250 MG TABLET PO ONE (21:44)
[2022-04-20] MEDS: QUEtiapine FUMARATE 50 MG TABLET PO SCH (22:19)
[2022-04-20] MEDS: THIAMINE HCL 100 MG TABLET (FP) PO SCH (22:19)
[2022-04-20] MEDS: METHOCARBAMOL 500 MG TABLET PO PRN (22:21)
[2022-04-20] MEDS: MELATONIN 5 MG TABLETS PO SCH (23:35)
[2022-04-21] MEDS: chlordiazePOXIDE HCL 25 MG CAPSULE PO SCH ×4 (06:03→22:08)
[2022-04-21] MEDS ORDERED: levETIRAcetam 250 MG TABLET PO ONE (09:19)
[2022-04-21] MEDS: VENLAFAXINE HCL 75 MG E.R. CAPSULES PO SCH (10:07)
[2022-04-21] MEDS: APIXABAN 5 MG TABLET PO SCH ×2 (10:07→22:43)
[2022-04-21] MEDS: PRENATAL VITAMINS W/ FOLIC ACID TABLET (FP) PO SCH (10:07)
[2022-04-21] MEDS: levETIRAcetam 500 MG TABLET (FP) PO SCH ×2 (10:08→22:43)
[2022-04-21] MEDS: TAMSULOSIN HCL 0.4 MG CAP PO SCH (10:08)
[2022-04-21] MEDS: hydrOXYzine PAMOATE 25 MG CAPSULE (FP) PO PRN (17:37)
[2022-04-21] MEDS: METHOCARBAMOL 500 MG TABLET PO PRN ×2 (17:37→22:48)
[2022-04-21] MEDS: QUEtiapine FUMARATE 50 MG TABLET PO SCH (22:42)
[2022-04-21] MEDS: MELATONIN 5 MG TABLETS PO SCH (22:44)
[2022-04-21] MEDS: THIAMINE HCL 100 MG TABLET (FP) PO SCH (22:44)
[2022-04-22] MEDS ORDERED: chlordiazePOXIDE HCL 10 MG CAPSULE PO PRN
[2022-04-22] MEDS: chlordiazePOXIDE HCL 10 MG CAPSULE PO SCH ×4 (05:46→22:22)
[2022-04-22] MEDS: PRENATAL VITAMINS W/ FOLIC ACID TABLET (FP) PO SCH (10:32)
[2022-04-22] MEDS: TAMSULOSIN HCL 0.4 MG CAP PO SCH (10:33)
[2022-04-22] MEDS: APIXABAN 5 MG TABLET PO SCH ×2 (10:33→22:22)
[2022-04-22] MEDS: levETIRAcetam 500 MG TABLET (FP) PO SCH ×2 (10:33→22:22)
[2022-04-22] MEDS: VENLAFAXINE HCL 75 MG E.R. CAPSULES PO SCH (10:33)
[2022-04-22] MEDS: hydrOXYzine PAMOATE 25 MG CAPSULE (FP) PO PRN (22:21)
[2022-04-22] MEDS: MELATONIN 5 MG TABLETS PO SCH (22:21)
[2022-04-22] MEDS: QUEtiapine FUMARATE 50 MG TABLET PO SCH (22:22)
[2022-04-22] MEDS: THIAMINE HCL 100 MG TABLET (FP) PO SCH (22:22)
[2022-04-23] MEDS: chlordiazePOXIDE HCL 10 MG CAPSULE PO SCH ×2 (06:05→17:20)
[2022-04-23] MEDS: METHOCARBAMOL 500 MG TABLET PO PRN ×2 (10:09→17:20)
[2022-04-23] MEDS: TAMSULOSIN HCL 0.4 MG CAP PO SCH (10:10)
[2022-04-23] MEDS: APIXABAN 5 MG TABLET PO SCH ×2 (10:10→22:15)
[2022-04-23] MEDS: levETIRAcetam 500 MG TABLET (FP) PO SCH ×2 (10:10→22:15)
[2022-04-23] MEDS: VENLAFAXINE HCL 75 MG E.R. CAPSULES PO SCH (10:10)
[2022-04-23] MEDS: PRENATAL VITAMINS W/ FOLIC ACID TABLET (FP) PO SCH (10:10)
[2022-04-23] MEDS: hydrOXYzine PAMOATE 25 MG CAPSULE (FP) PO PRN (17:20)
[2022-04-23] MEDS: MELATONIN 5 MG TABLETS PO SCH (22:15)
[2022-04-23] MEDS: QUEtiapine FUMARATE 50 MG TABLET PO SCH (22:15)
[2022-04-23] MEDS: THIAMINE HCL 100 MG TABLET (FP) PO SCH (22:15)
[2022-04-24] MEDS ORDERED: chlordiazePOXIDE HCL 10 MG CAPSULE PO ONE (05:00)
[2022-04-24 05:48] VITALS: RESP 18
[2022-04-24 09:12] VITALS: BP 107/64; PULSE 91; TEMP 97.4
[2022-04-24] MEDS: TAMSULOSIN HCL 0.4 MG CAP PO SCH (09:26)
[2022-04-24] MEDS: levETIRAcetam 500 MG TABLET (FP) PO SCH (09:26)
[2022-04-24] MEDS: VENLAFAXINE HCL 75 MG E.R. CAPSULES PO SCH (09:26)
[2022-04-24] MEDS: PRENATAL VITAMINS W/ FOLIC ACID TABLET (FP) PO SCH (09:26)
[2022-04-24] MEDS: APIXABAN 5 MG TABLET PO SCH (09:26)
== END 2022-04-24 14:18 | disposition other institution (70) | DRG 774 ==
LOC: YASAS 09:32 → Y6N 10:48
PROVIDERS: ADMIT Allergy & Immunology; ATTEND Surgery
PROC: HZ2ZZZZ Detoxification Services for Substance Abuse Treatment (ICD-10-PCS; principal; 2022-04-19)
DX: F10.230 Alcohol dependence with withdrawal, uncomplicated (principal); F14.20 Cocaine dependence, uncomplicated; F10.282 Alcohol dependence with alcohol-induced sleep disorder; F10.24 Alcohol dependence with alcohol-induced mood disorder; F19.24 Other psychoactive substance dependence with psychoactive substance-induced mood disorder; F32.A Depression, unspecified; F41.9 Anxiety disorder, unspecified; G40.909 Epilepsy, unspecified, not intractable, without status epilepticus; J45.20 Mild intermittent asthma, uncomplicated; Z62.810 Personal history of physical and sexual abuse in childhood; Z86.711 Personal history of pulmonary embolism; Z79.01 Long term (current) use of anticoagulants; I69.854 Hemiplegia and hemiparesis following other cerebrovascular disease affecting left non-dominant side; Z95.828 Presence of other vascular implants and grafts
CPT/HCPCS: 36415; 80053; 80177; 85027; 86780; C9803-CS; U0003; U0005

== ENCOUNTER 2022-07-12 09:04 | Inpatient (IN) | payer OTHER ==
[2022-07-12 10:50] VITALS: BMI 28.3
[2022-07-12] MEDS ORDERED: chlordiazePOXIDE HCL 25 MG CAPSULE PO PRN (11:17)
[2022-07-12] MEDS ORDERED: ONDANSETRON *ODT* 4 MG TABLET SL PRN (11:17)
[2022-07-12] MEDS ORDERED: hydrOXYzine PAMOATE 25 MG CAPSULE (FP) PO PRN (11:17)
[2022-07-12] MEDS ORDERED: BENZOCAINE/MENTHOL (CHLORASEPTIC ) LOZENGE MM PRN (11:17)
[2022-07-12] MEDS ORDERED: MAG HYDROX/AL HYDROX/SIMETH 30 ML UNIT-DOSE CUP PO PRN (11:17)
[2022-07-12] MEDS ORDERED: BISMUTH SUBSALICYLATE 524 MG/30 ML PO PRN (11:17)
[2022-07-12] MEDS ORDERED: IBUPROFEN 400 MG TABLET (FP) PO PRN (11:17)
[2022-07-12] MEDS ORDERED: NICOTINE 10 MG CARTRIDGE (INHALER) IH PRN (11:17)
[2022-07-12] MEDS ORDERED: chlordiazePOXIDE HCL 25 MG CAPSULE PO ONE (11:17)
[2022-07-12] MEDS ORDERED: NALOXONE HCL (KLOXXADO) 8 MG SPRAY NS PRN (11:17)
[2022-07-12] MEDS ORDERED: MAGNESIUM HYDROX 2400MG/30ML ORAL SUSPENSION 30 ML CUP PO PRN (11:17)
[2022-07-12] MEDS ORDERED: DICYCLOMINE HCL 10 MG CAPSULE PO PRN (11:17)
[2022-07-12] MEDS ORDERED: ACETAMINOPHEN 325 MG TABLET (FP) PO PRN ×2 (11:17)
[2022-07-12] MEDS ORDERED: IBUPROFEN 600 MG TABLET (FP) PO PRN (11:17)
[2022-07-12] MEDS ORDERED: POLYETHYLENE GLYCOL (HEALTHYLAX) 3350 17 GM PACKET PO PRN (11:17)
[2022-07-12] MEDS ORDERED: LOPERAMIDE HCL 2 MG CAPSULE PO PRN (11:17)
[2022-07-12] MEDS ORDERED: METHOCARBAMOL 500 MG TABLET PO PRN (11:17)
[2022-07-12 13:26] VITALS: RESP 18
[2022-07-12] MEDS ORDERED: chlordiazePOXIDE HCL 25 MG CAPSULE PO SCH (17:00)
[2022-07-12 17:45] VITALS: BP 125/77; PULSE 108; TEMP 98.2
[2022-07-12] MEDS ORDERED: THIAMINE HCL 100 MG TABLET (FP) PO SCH (22:00)
[2022-07-12] MEDS ORDERED: MELATONIN 5 MG TABLETS PO SCH (22:00)
[2022-07-12] MEDS ORDERED: levETIRAcetam 500 MG TABLET (FP) PO SCH (22:00)
[2022-07-12] MEDS ORDERED: APIXABAN 5 MG TABLET PO SCH (22:00)
[2022-07-13] MEDS ORDERED: PRENATAL VITAMINS W/ FOLIC ACID TABLET (FP) PO SCH (10:00)
[2022-07-14] MEDS ORDERED: chlordiazePOXIDE HCL 25 MG CAPSULE PO SCH (05:00)
[2022-07-15] MEDS ORDERED: chlordiazePOXIDE HCL 10 MG CAPSULE PO PRN
[2022-07-15] MEDS ORDERED: chlordiazePOXIDE HCL 10 MG CAPSULE PO SCH (05:00)
[2022-07-16] MEDS ORDERED: chlordiazePOXIDE HCL 10 MG CAPSULE PO SCH (05:00)
[2022-07-17] MEDS ORDERED: chlordiazePOXIDE HCL 10 MG CAPSULE PO ONE (05:00)
== END 2022-07-12 18:05 | disposition left against medical advice (07) | DRG 770 ==
LOC: YASAS 09:04 → Y6N 12:17
PROVIDERS: ADMIT Allergy & Immunology; ATTEND Family Medicine
PROC: HZ2ZZZZ Detoxification Services for Substance Abuse Treatment (ICD-10-PCS; principal; 2022-07-12)
DX: F10.230 Alcohol dependence with withdrawal, uncomplicated (principal); F10.220 Alcohol dependence with intoxication, uncomplicated; F10.282 Alcohol dependence with alcohol-induced sleep disorder; F10.24 Alcohol dependence with alcohol-induced mood disorder; F33.1 Major depressive disorder, recurrent, moderate; F19.24 Other psychoactive substance dependence with psychoactive substance-induced mood disorder; F51.05 Insomnia due to other mental disorder; F41.9 Anxiety disorder, unspecified; G40.909 Epilepsy, unspecified, not intractable, without status epilepticus; Z86.718 Personal history of other venous thrombosis and embolism; Z86.711 Personal history of pulmonary embolism; Z86.73 Personal history of transient ischemic attack (TIA), and cerebral infarction without residual deficits; Z91.81 History of falling
CPT/HCPCS: 87811; 93005; 93010; C9803-CS; U0003; U0005

== ENCOUNTER 2022-12-10 11:55 | Inpatient (IN) | payer OTHER ==
[2022-12-10 12:53] VITALS: BMI 28.3
[2022-12-10] MEDS ORDERED: BISMUTH SUBSALICYLATE 524 MG/30 ML PO PRN (15:10)
[2022-12-10] MEDS ORDERED: IBUPROFEN 600 MG TABLET (FP) PO PRN (15:10)
[2022-12-10] MEDS ORDERED: AMMONIUM LACTATE 12% LOTION 225 GM BOTTLE TP PRN (15:10)
[2022-12-10] MEDS ORDERED: POLYETHYLENE GLYCOL (HEALTHYLAX) 3350 17 GM PACKET PO PRN (15:10)
[2022-12-10] MEDS ORDERED: IBUPROFEN 400 MG TABLET (FP) PO PRN (15:10)
[2022-12-10] MEDS ORDERED: COLLOIDAL OATMEAL 1 BAR EACH TP PRN (15:10)
[2022-12-10] MEDS ORDERED: ACETAMINOPHEN 325 MG TABLET (FP) PO PRN (15:10)
[2022-12-10] MEDS ORDERED: MAG HYDROX/AL HYDROX/SIMETH 30 ML UNIT-DOSE CUP PO PRN (15:10)
[2022-12-10] MEDS ORDERED: guaiFENesin 600 MG TABLET.ER (FP) PO PRN (15:10)
[2022-12-10] MEDS ORDERED: LOPERAMIDE HCL 2 MG CAPSULE PO PRN (15:10)
[2022-12-10] MEDS ORDERED: NALOXONE HCL 0.4 MG/ML VIAL IM PRN (15:10)
[2022-12-10] MEDS ORDERED: DICYCLOMINE HCL 10 MG CAPSULE PO PRN (15:10)
[2022-12-10] MEDS ORDERED: NALOXONE HCL (KLOXXADO) 8 MG SPRAY NS PRN (15:10)
[2022-12-10] MEDS ORDERED: BENZOCAINE/MENTHOL (CHLORASEPTIC ) LOZENGE MM PRN (15:10)
[2022-12-10] MEDS ORDERED: MAGNESIUM HYDROX 2400MG/30ML ORAL SUSPENSION 30 ML CUP PO PRN (15:10)
[2022-12-10] MEDS ORDERED: BENZONATATE 200 MG CAPSULE PO PRN (15:10)
[2022-12-10] MEDS ORDERED: NICOTINE 10 MG CARTRIDGE (INHALER) IH PRN (15:10)
[2022-12-10] MEDS ORDERED: ONDANSETRON *ODT* 4 MG TABLET SL PRN (15:10)
[2022-12-10] MEDS: ATORVASTATIN CA 40 MG TABLET (FP) PO SCH (15:48)
[2022-12-10] MEDS: FAMOTIDINE 20 MG TABLET PO SCH (15:48)
[2022-12-10] MEDS: CYANOCOBALAMIN (VITAMIN B-12) 100 MCG TABLET PO SCH (15:52)
[2022-12-10] MEDS: chlordiazePOXIDE HCL 25 MG CAPSULE PO SCH ×2 (17:31→22:12)
[2022-12-10] MEDS ORDERED: LACTULOSE 20 GM/30 ML UDC (FOR ORAL USE ONLY) PO ONE ×2 (18:16→18:30)
[2022-12-10] MEDS: QUEtiapine FUMARATE 25 MG TABLET PO SCH (22:11)
[2022-12-10] MEDS: levETIRAcetam 500 MG TABLET (FP) PO SCH (22:11)
[2022-12-10] MEDS: APIXABAN 5 MG TABLET PO SCH (22:11)
[2022-12-10] MEDS: MELATONIN 5 MG TABLETS PO SCH (22:12)
[2022-12-10] MEDS: THIAMINE HCL 100 MG TABLET (FP) PO SCH (22:12)
[2022-12-11] MEDS: chlordiazePOXIDE HCL 25 MG CAPSULE PO SCH ×4 (05:29→22:28)
[2022-12-11] MEDS: levETIRAcetam 500 MG TABLET (FP) PO SCH ×2 (10:24→22:27)
[2022-12-11] MEDS: PRENATAL VITAMINS W/ FOLIC ACID TABLET (FP) PO SCH (10:24)
[2022-12-11] MEDS: ATORVASTATIN CA 40 MG TABLET (FP) PO SCH (10:24)
[2022-12-11] MEDS: APIXABAN 5 MG TABLET PO SCH ×2 (10:24→22:28)
[2022-12-11] MEDS: FAMOTIDINE 20 MG TABLET PO SCH (10:24)
[2022-12-11] MEDS: CYANOCOBALAMIN (VITAMIN B-12) 100 MCG TABLET PO SCH (10:25)
[2022-12-11 12:06] LABS: HEMATOCRIT 42.5 % (35.4-49); MCH 30.8 pg (25.7-33.7); MCHC 32.9 g/dl (32.0-35.9); MEAN CELL VOLUME 93.8 fl (80-96); MEAN PLT VOLUME 7.7 fl (7.5-11.1); PLATELET COUNT 257 10^3/uL (134-434); RBC 4.53 M/mm3 (4.00-5.60); RDW 13.2 % (11.9-15.9); WHITE BLOOD COUNT 5.5 K/mm3 (4.0-10.0)
[2022-12-11 12:14] LABS: ALBUMIN 3.9 g/dl (3.4-5.0); CALCIUM 9.4 mg/dL (8.5-10.1)
[2022-12-11 12:15] LABS: BLOOD UREA NITROGEN 6.7 mg/dL (7-18); TOT PROT 7.1 g/dl (6.4-8.2)
[2022-12-11 12:17] LABS: CREATININE 1.3 mg/dL (0.55-1.3)
[2022-12-11 12:20] LABS: BILIRUBIN,TOTAL 1.1 mg/dL (0.2-1)
[2022-12-11] MEDS: LACTULOSE 20 GM/30 ML UDC (FOR ORAL USE ONLY) PO SCH ×2 (16:35→22:28)
[2022-12-11] MEDS: THIAMINE HCL 100 MG TABLET (FP) PO SCH (22:28)
[2022-12-11] MEDS: MELATONIN 5 MG TABLETS PO SCH (22:28)
[2022-12-11] MEDS: QUEtiapine FUMARATE 25 MG TABLET PO SCH (22:28)
[2022-12-12] MEDS: chlordiazePOXIDE HCL 25 MG CAPSULE PO SCH ×4 (05:49→22:10)
[2022-12-12] MEDS: LACTULOSE 20 GM/30 ML UDC (FOR ORAL USE ONLY) PO SCH ×3 (05:49→22:08)
[2022-12-12] MEDS: FAMOTIDINE 20 MG TABLET PO SCH (10:08)
[2022-12-12] MEDS: PRENATAL VITAMINS W/ FOLIC ACID TABLET (FP) PO SCH (10:08)
[2022-12-12] MEDS: levETIRAcetam 500 MG TABLET (FP) PO SCH ×2 (10:08→22:09)
[2022-12-12] MEDS: APIXABAN 5 MG TABLET PO SCH ×2 (10:08→22:08)
[2022-12-12] MEDS: ATORVASTATIN CA 40 MG TABLET (FP) PO SCH (10:08)
[2022-12-12] MEDS: CYANOCOBALAMIN (VITAMIN B-12) 100 MCG TABLET PO SCH (10:09)
[2022-12-12] MEDS: MELATONIN 5 MG TABLETS PO SCH (22:09)
[2022-12-12] MEDS: QUEtiapine FUMARATE 25 MG TABLET PO SCH (22:09)
[2022-12-12] MEDS: THIAMINE HCL 100 MG TABLET (FP) PO SCH (22:09)
[2022-12-13] MEDS: chlordiazePOXIDE HCL 10 MG CAPSULE PO SCH ×4 (05:42→22:20)
[2022-12-13] MEDS: LACTULOSE 20 GM/30 ML UDC (FOR ORAL USE ONLY) PO SCH ×2 (05:42→14:05)
[2022-12-13] MEDS: FAMOTIDINE 20 MG TABLET PO SCH (10:12)
[2022-12-13] MEDS: CYANOCOBALAMIN (VITAMIN B-12) 100 MCG TABLET PO SCH (10:12)
[2022-12-13] MEDS: PRENATAL VITAMINS W/ FOLIC ACID TABLET (FP) PO SCH (10:12)
[2022-12-13] MEDS: APIXABAN 5 MG TABLET PO SCH ×2 (10:12→22:20)
[2022-12-13] MEDS: ATORVASTATIN CA 40 MG TABLET (FP) PO SCH (10:13)
[2022-12-13] MEDS: levETIRAcetam 500 MG TABLET (FP) PO SCH ×2 (10:13→22:19)
[2022-12-13] MEDS: MELATONIN 5 MG TABLETS PO SCH (22:19)
[2022-12-13] MEDS: QUEtiapine FUMARATE 25 MG TABLET PO SCH (22:19)
[2022-12-13] MEDS: THIAMINE HCL 100 MG TABLET (FP) PO SCH (22:19)
[2022-12-13] MEDS: METHOCARBAMOL 500 MG TABLET PO PRN (22:21)
[2022-12-14] MEDS: chlordiazePOXIDE HCL 10 MG CAPSULE PO SCH ×2 (05:49→17:26)
[2022-12-14] MEDS: APIXABAN 5 MG TABLET PO SCH ×2 (10:42→22:22)
[2022-12-14] MEDS: ATORVASTATIN CA 40 MG TABLET (FP) PO SCH (10:42)
[2022-12-14] MEDS: PRENATAL VITAMINS W/ FOLIC ACID TABLET (FP) PO SCH (10:42)
[2022-12-14] MEDS: levETIRAcetam 500 MG TABLET (FP) PO SCH ×2 (10:42→22:22)
[2022-12-14] MEDS: CYANOCOBALAMIN (VITAMIN B-12) 100 MCG TABLET PO SCH (10:42)
[2022-12-14] MEDS: FAMOTIDINE 20 MG TABLET PO SCH (10:42)
[2022-12-14] MEDS: LACTULOSE 20 GM/30 ML UDC (FOR ORAL USE ONLY) PO SCH ×2 (16:03→22:22)
[2022-12-14] MEDS: QUEtiapine FUMARATE 25 MG TABLET PO SCH (22:23)
[2022-12-14] MEDS: THIAMINE HCL 100 MG TABLET (FP) PO SCH (22:23)
[2022-12-14] MEDS: MELATONIN 5 MG TABLETS PO SCH (22:23)
[2022-12-14] MEDS: METHOCARBAMOL 500 MG TABLET PO PRN (22:24)
[2022-12-15] MEDS ORDERED: chlordiazePOXIDE HCL 10 MG CAPSULE PO ONE (05:00)
[2022-12-15] MEDS: LACTULOSE 20 GM/30 ML UDC (FOR ORAL USE ONLY) PO SCH (05:42)
[2022-12-15 06:59] VITALS: RESP 18
[2022-12-15 09:26] VITALS: BP 110/62; PULSE 64; TEMP 98.4
[2022-12-15] MEDS: APIXABAN 5 MG TABLET PO SCH (09:52)
[2022-12-15] MEDS: levETIRAcetam 500 MG TABLET (FP) PO SCH (09:52)
[2022-12-15] MEDS: PRENATAL VITAMINS W/ FOLIC ACID TABLET (FP) PO SCH (09:52)
[2022-12-15] MEDS: FAMOTIDINE 20 MG TABLET PO SCH (09:53)
[2022-12-15] MEDS: CYANOCOBALAMIN (VITAMIN B-12) 100 MCG TABLET PO SCH (09:53)
[2022-12-15] MEDS: ATORVASTATIN CA 40 MG TABLET (FP) PO SCH (09:53)
== END 2022-12-15 09:55 | disposition home or self-care (01) | DRG 775 ==
LOC: YASAS 11:55 → Y3N 15:12
PROVIDERS: ADMIT Allergy & Immunology; ATTEND Surgery
PROC: HZ2ZZZZ Detoxification Services for Substance Abuse Treatment (ICD-10-PCS; principal; 2022-12-10)
PROC: HZ2ZZZZ Detoxification Services for Substance Abuse Treatment (ICD-10-PCS; 2022-12-10)
DX: F10.230 Alcohol dependence with withdrawal, uncomplicated (principal); F41.9 Anxiety disorder, unspecified; F32.A Depression, unspecified; F51.01 Primary insomnia; E72.20 Disorder of urea cycle metabolism, unspecified; G40.909 Epilepsy, unspecified, not intractable, without status epilepticus; K21.9 Gastro-esophageal reflux disease without esophagitis; I69.854 Hemiplegia and hemiparesis following other cerebrovascular disease affecting left non-dominant side; Z86.718 Personal history of other venous thrombosis and embolism; Z79.01 Long term (current) use of anticoagulants; Z86.711 Personal history of pulmonary embolism; Z96.89 Presence of other specified functional implants
CPT/HCPCS: 36415; 80053; 82140; 85027; 86780; 87635; 87811; 93005; 93010

== ENCOUNTER 2023-02-21 09:16 | Inpatient (IN) | payer OTHER ==
[2023-02-21 10:41] VITALS: BMI 27.9
[2023-02-21] MEDS ORDERED: IBUPROFEN 400 MG TABLET (FP) PO PRN (12:09)
[2023-02-21] MEDS ORDERED: NALOXONE HCL 0.4 MG/ML VIAL IM PRN (12:09)
[2023-02-21] MEDS ORDERED: NALOXONE HCL (KLOXXADO) 8 MG SPRAY NS PRN (12:09)
[2023-02-21] MEDS ORDERED: BENZOCAINE/MENTHOL (CHLORASEPTIC ) LOZENGE MM PRN (12:09)
[2023-02-21] MEDS ORDERED: ONDANSETRON *ODT* 4 MG TABLET SL PRN (12:09)
[2023-02-21] MEDS ORDERED: BISMUTH SUBSALICYLATE 524 MG/30 ML PO PRN (12:09)
[2023-02-21] MEDS ORDERED: ACETAMINOPHEN 325 MG TABLET (FP) PO PRN (12:09)
[2023-02-21] MEDS ORDERED: DICYCLOMINE HCL 10 MG CAPSULE PO PRN (12:09)
[2023-02-21] MEDS ORDERED: METHOCARBAMOL 500 MG TABLET PO PRN (12:09)
[2023-02-21] MEDS ORDERED: BENZONATATE 200 MG CAPSULE PO PRN (12:09)
[2023-02-21] MEDS ORDERED: IBUPROFEN 600 MG TABLET (FP) PO PRN (12:09)
[2023-02-21] MEDS ORDERED: MAGNESIUM HYDROX 2400MG/30ML ORAL SUSPENSION 30 ML CUP PO PRN (12:09)
[2023-02-21] MEDS ORDERED: guaiFENesin 600 MG TABLET.ER (FP) PO PRN (12:09)
[2023-02-21] MEDS ORDERED: MAG HYDROX/AL HYDROX/SIMETH 30 ML UNIT-DOSE CUP PO PRN (12:09)
[2023-02-21] MEDS ORDERED: POLYETHYLENE GLYCOL (HEALTHYLAX) 3350 17 GM PACKET PO PRN (12:09)
[2023-02-21] MEDS ORDERED: chlordiazePOXIDE HCL 25 MG CAPSULE PO PRN (12:09)
[2023-02-21] MEDS ORDERED: chlordiazePOXIDE HCL 25 MG CAPSULE ONE (12:55)
[2023-02-21] MEDS: chlordiazePOXIDE HCL 25 MG CAPSULE PO SCH ×2 (17:30→22:37)
[2023-02-21] MEDS ORDERED: MELATONIN 5 MG TABLETS PO SCH (22:00)
[2023-02-21] MEDS: THIAMINE HCL 100 MG TABLET (FP) PO SCH (22:36)
[2023-02-21] MEDS: levETIRAcetam 500 MG TABLET (FP) PO SCH (22:36)
[2023-02-21] MEDS: ATORVASTATIN CA 40 MG TABLET (FP) PO SCH (22:37)
[2023-02-21] MEDS: APIXABAN 5 MG TABLET PO SCH (22:37)
[2023-02-22] MEDS: chlordiazePOXIDE HCL 25 MG CAPSULE PO SCH ×4 (05:50→22:24)
[2023-02-22 10:20] LABS: POTASSIUM 3.9 mmol/L (3.5-5.1)
[2023-02-22] MEDS: hydrOXYzine PAMOATE 25 MG CAPSULE (FP) PO PRN (10:23)
[2023-02-22] MEDS: levETIRAcetam 500 MG TABLET (FP) PO SCH ×2 (10:23→22:23)
[2023-02-22] MEDS: APIXABAN 5 MG TABLET PO SCH ×2 (10:23→22:24)
[2023-02-22] MEDS: PRENATAL VITAMINS W/ FOLIC ACID TABLET (FP) PO SCH (10:25)
[2023-02-22] MEDS: FAMOTIDINE 20 MG TABLET PO SCH (10:25)
[2023-02-22] MEDS: CYANOCOBALAMIN (VITAMIN B-12) 100 MCG TABLET PO SCH (10:25)
[2023-02-22 10:26] LABS: ALBUMIN 3.3 g/dl (3.4-5.0); BLOOD UREA NITROGEN 7.6 mg/dL (7-18); CALCIUM 8.5 mg/dL (8.5-10.1)
[2023-02-22 10:27] LABS: HEMATOCRIT 40.4 % (35.4-49); HEMOGLOBIN 13.2 GM/dL (11.7-16.9); MCH 30.8 pg (25.7-33.7); MCHC 32.8 g/dl (32.0-35.9); MEAN CELL VOLUME 93.9 fl (80-96); PLATELET COUNT 256 10^3/uL (134-434); RDW 13.4 % (11.9-15.9); WHITE BLOOD COUNT 4.2 K/mm3 (4.0-10.0)
[2023-02-22] MEDS: LOPERAMIDE HCL 2 MG CAPSULE PO PRN (10:27)
[2023-02-22 10:28] LABS: CREATININE 0.8 mg/dL (0.55-1.3)
[2023-02-22 10:30] LABS: BILIRUBIN,TOTAL 1.2 mg/dL (0.2-1); TOT PROT 6.4 g/dl (6.4-8.2)
[2023-02-22] MEDS: lamoTRIgine 100 MG TABLET PO SCH (14:10)
[2023-02-22] MEDS ORDERED: QUEtiapine FUMARATE 50 MG TABLET PO SCH (22:00)
[2023-02-22] MEDS: ATORVASTATIN CA 40 MG TABLET (FP) PO SCH (22:24)
[2023-02-22] MEDS: THIAMINE HCL 100 MG TABLET (FP) PO SCH (22:24)
[2023-02-22] MEDS: QUEtiapine FUMARATE 50 MG TABLET PO SCH (22:24)
[2023-02-23] MEDS: chlordiazePOXIDE HCL 25 MG CAPSULE PO SCH ×4 (06:07→22:14)
[2023-02-23] MEDS ORDERED: levETIRAcetam 250 MG TABLET PO ONE (09:24)
[2023-02-23] MEDS: CYANOCOBALAMIN (VITAMIN B-12) 100 MCG TABLET PO SCH (10:24)
[2023-02-23] MEDS: levETIRAcetam 500 MG TABLET (FP) PO SCH ×2 (10:25→22:13)
[2023-02-23] MEDS: FAMOTIDINE 20 MG TABLET PO SCH (10:26)
[2023-02-23] MEDS: APIXABAN 5 MG TABLET PO SCH ×2 (10:26→22:14)
[2023-02-23] MEDS: lamoTRIgine 100 MG TABLET PO SCH (10:26)
[2023-02-23] MEDS: PRENATAL VITAMINS W/ FOLIC ACID TABLET (FP) PO SCH (10:27)
[2023-02-23] MEDS: LOPERAMIDE HCL 2 MG CAPSULE PO PRN (12:13)
[2023-02-23] MEDS: THIAMINE HCL 100 MG TABLET (FP) PO SCH (22:13)
[2023-02-23] MEDS: ATORVASTATIN CA 40 MG TABLET (FP) PO SCH (22:13)
[2023-02-23] MEDS: QUEtiapine FUMARATE 50 MG TABLET PO SCH (22:14)
[2023-02-24] MEDS ORDERED: chlordiazePOXIDE HCL 10 MG CAPSULE PO PRN
[2023-02-24] MEDS: chlordiazePOXIDE HCL 10 MG CAPSULE PO SCH ×2 (05:32→10:01)
[2023-02-24] MEDS: hydrOXYzine PAMOATE 25 MG CAPSULE (FP) PO PRN (05:33)
[2023-02-24 05:57] VITALS: TEMP 98.4
[2023-02-24 09:14] VITALS: BP 115/62; PULSE 100; RESP 18
[2023-02-24] MEDS: PRENATAL VITAMINS W/ FOLIC ACID TABLET (FP) PO SCH (09:40)
[2023-02-24] MEDS: levETIRAcetam 500 MG TABLET (FP) PO SCH (09:40)
[2023-02-24] MEDS: CYANOCOBALAMIN (VITAMIN B-12) 100 MCG TABLET PO SCH (09:41)
[2023-02-24] MEDS: APIXABAN 5 MG TABLET PO SCH (09:41)
[2023-02-24] MEDS: lamoTRIgine 100 MG TABLET PO SCH (09:41)
[2023-02-24] MEDS: FAMOTIDINE 20 MG TABLET PO SCH (09:41)
[2023-02-24 11:49] LABS: PH,URINE 6.5 (5.0-8.0); URINE APPEARANCE CLEAR; URINE BILIRUBIN NEGATIVE (NEGATIVE); URINE COLOR YELLOW; URINE GLUCOSE (UA) NEGATIVE (NEGATIVE); URINE KETONE NEGATIVE (NEGATIVE); URINE LEUK ESTERASE NEGATIVE (NEGATIVE); URINE NITRITE NEGATIVE (NEGATIVE); URINE PROTEIN NEGATIVE (NEGATIVE); URINE UROBILINOGEN 0.2 mg/dL (0.2-1.0)
[2023-02-25] MEDS ORDERED: chlordiazePOXIDE HCL 10 MG CAPSULE PO SCH (05:00)
[2023-02-26] MEDS ORDERED: chlordiazePOXIDE HCL 10 MG CAPSULE PO ONE (05:00)
== END 2023-02-24 10:00 | disposition home or self-care (01) | DRG 775 ==
LOC: YASAS 09:16 → Y6N 13:06
PROVIDERS: ADMIT Allergy & Immunology; ATTEND Surgery
PROC: HZ2ZZZZ Detoxification Services for Substance Abuse Treatment (ICD-10-PCS; principal; 2023-02-21)
DX: F10.230 Alcohol dependence with withdrawal, uncomplicated (principal); G40.909 Epilepsy, unspecified, not intractable, without status epilepticus; J45.909 Unspecified asthma, uncomplicated; Z86.711 Personal history of pulmonary embolism; Z86.718 Personal history of other venous thrombosis and embolism; Z79.01 Long term (current) use of anticoagulants; I69.854 Hemiplegia and hemiparesis following other cerebrovascular disease affecting left non-dominant side
CPT/HCPCS: 36415; 70450-TC; 71045-TC-FY; 72125-TC; 80053; 80178; 80307; 81003; 82247; 83690; 84484; 85025; 85027; 86780; 87635; 87811; 93005; 93010

== ENCOUNTER 2023-05-24 18:41 | Emergency (ER) | payer OTHER ==
[2023-05-24 18:54] VITALS: BP 103/69; PULSE 112; RESP 20; TEMP 98.1; BMI 28.3
== END 2023-05-24 20:31 | disposition short-term general hospital (02) ==
LOC: JER 18:41
DX: F10.129 Alcohol abuse with intoxication, unspecified (principal)
CPT/HCPCS: 99285-25

== ENCOUNTER 2023-05-28 11:53 | Inpatient (IN) | payer OTHER ==
[2023-05-28 12:38] VITALS: BMI 28.3
[2023-05-28] MEDS ORDERED: chlordiazePOXIDE HCL 25 MG CAPSULE PO PRN (13:03)
[2023-05-28] MEDS ORDERED: chlordiazePOXIDE HCL 25 MG CAPSULE PO ONE (13:03)
[2023-05-28] MEDS ORDERED: P-EPHED 60MG/TRIPROLIDI 2.5MG TABLET PO PRN (13:08)
[2023-05-28] MEDS ORDERED: MAGNESIUM HYDROX 2400MG/30ML ORAL SUSPENSION 30 ML CUP PO PRN (13:08)
[2023-05-28] MEDS ORDERED: POLYETHYLENE GLYCOL (HEALTHYLAX) 3350 17 GM PACKET PO PRN (13:08)
[2023-05-28] MEDS ORDERED: DICYCLOMINE HCL 10 MG CAPSULE PO PRN (13:08)
[2023-05-28] MEDS ORDERED: ACETAMINOPHEN 325 MG TABLET (FP) PO PRN ×2 (13:08)
[2023-05-28] MEDS ORDERED: MAG HYDROX/AL HYDROX/SIMETH 30 ML UNIT-DOSE CUP PO PRN (13:08)
[2023-05-28] MEDS ORDERED: BENZOCAINE/MENTHOL (CHLORASEPTIC ) LOZENGE MM PRN (13:08)
[2023-05-28] MEDS ORDERED: LOPERAMIDE HCL 2 MG CAPSULE PO PRN (13:08)
[2023-05-28] MEDS ORDERED: BENZONATATE 200 MG CAPSULE PO PRN (13:08)
[2023-05-28] MEDS ORDERED: guaiFENesin 600 MG TABLET.ER (FP) PO PRN (13:08)
[2023-05-28] MEDS ORDERED: ONDANSETRON *ODT* 4 MG TABLET SL PRN (13:08)
[2023-05-28] MEDS: levETIRAcetam 500 MG TABLET (FP) PO SCH ×2 (13:46→22:36)
[2023-05-28] MEDS ORDERED: APIXABAN 5 MG TABLET PO ONE (14:59)
[2023-05-28] MEDS ORDERED: FOLIC ACID 1 MG TABLET (FP) PO ONE (15:02)
[2023-05-28] MEDS: FOLIC ACID 1 MG TABLET (FP) PO SCH (15:08)
[2023-05-28] MEDS: APIXABAN 5 MG TABLET PO SCH ×2 (15:08→22:36)
[2023-05-28] MEDS: chlordiazePOXIDE HCL 25 MG CAPSULE PO SCH ×2 (17:36→22:36)
[2023-05-28] MEDS ORDERED: MELATONIN 5 MG TABLETS PO SCH (22:00)
[2023-05-28] MEDS ORDERED: THIAMINE HCL 100 MG TABLET (FP) PO SCH (22:00)
[2023-05-29] MEDS: chlordiazePOXIDE HCL 25 MG CAPSULE PO SCH ×2 (06:15→10:10)
[2023-05-29 09:37] VITALS: RESP 16; TEMP 97.5
[2023-05-29] MEDS ORDERED: PRENATAL VITAMINS W/ FOLIC ACID TABLET (FP) PO SCH (10:00)
[2023-05-29] MEDS: levETIRAcetam 500 MG TABLET (FP) PO SCH (10:09)
[2023-05-29] MEDS: APIXABAN 5 MG TABLET PO SCH (10:09)
[2023-05-29] MEDS: FOLIC ACID 1 MG TABLET (FP) PO SCH (10:09)
[2023-05-29 11:20] LABS: HEMATOCRIT 40.2 % (35.4-49); HEMOGLOBIN 13.1 GM/dL (11.7-16.9); MCH 29.8 pg (25.7-33.7); MCHC 32.6 g/dl (32.0-35.9); MEAN CELL VOLUME 91.5 fl (80-96); MEAN PLT VOLUME 7.9 fl (7.5-11.1); PLATELET COUNT 123 10^3/uL (134-434); RBC 4.39 M/mm3 (4.00-5.60); RDW 13.7 % (11.9-15.9); WHITE BLOOD COUNT 3.6 K/mm3 (4.0-10.0)
[2023-05-29 11:39] LABS: CHLORIDE 102 mmol/L (98-107); POTASSIUM 3.3 mmol/L (3.5-5.1); SODIUM 139 mmol/L (136-145)
[2023-05-29 11:47] LABS: ANION GAP 9 mmol/L (4-13); CALCIUM 8.5 mg/dL (8.5-10.1); CO2 29 mmol/L (21-32); GLUCOSE,RANDOM 103 mg/dL (74-106)
[2023-05-29 11:48] LABS: ALBUMIN 3.2 g/dl (3.4-5.0); BLOOD UREA NITROGEN 10.4 mg/dL (7-18)
[2023-05-29 11:50] LABS: CREATININE 0.8 mg/dL (0.55-1.3); SGPT/ALT 44 U/L (13-61)
[2023-05-29 11:51] LABS: SGOT/AST 56 U/L (15-37)
[2023-05-29 11:52] LABS: BILIRUBIN,TOTAL 1.1 mg/dL (0.2-1); TOT PROT 6.7 g/dl (6.4-8.2)
[2023-05-29 11:53] LABS: ALK PHOS 100 U/L (45-117)
[2023-05-29 13:05] VITALS: BP 98/58; PULSE 97
[2023-05-30] MEDS ORDERED: chlordiazePOXIDE HCL 25 MG CAPSULE PO SCH (05:00)
[2023-05-31] MEDS ORDERED: chlordiazePOXIDE HCL 10 MG CAPSULE PO PRN
[2023-05-31] MEDS ORDERED: chlordiazePOXIDE HCL 10 MG CAPSULE PO SCH (05:00)
[2023-06-01] MEDS ORDERED: chlordiazePOXIDE HCL 10 MG CAPSULE PO SCH (05:00)
[2023-06-02] MEDS ORDERED: chlordiazePOXIDE HCL 10 MG CAPSULE PO ONE (05:00)
== END 2023-05-29 14:02 | disposition left against medical advice (07) | DRG 770 ==
LOC: YASAS 11:53 → Y3N 13:28
PROVIDERS: ADMIT Allergy & Immunology; ATTEND Surgery
PROC: HZ2ZZZZ Detoxification Services for Substance Abuse Treatment (ICD-10-PCS; principal; 2023-05-28)
DX: F10.230 Alcohol dependence with withdrawal, uncomplicated (principal); F41.9 Anxiety disorder, unspecified; F32.A Depression, unspecified; I69.854 Hemiplegia and hemiparesis following other cerebrovascular disease affecting left non-dominant side; Z86.718 Personal history of other venous thrombosis and embolism; Z86.711 Personal history of pulmonary embolism
CPT/HCPCS: 36415; 80053; 80307; 85027; 86780; 87635

== ENCOUNTER 2023-11-01 15:50 | Inpatient (IN) | payer OTHER ==
[2023-11-01 16:47] VITALS: BMI 28.3
[2023-11-01] MEDS ORDERED: POLYETHYLENE GLYCOL (HEALTHYLAX) 3350 17 GM PACKET PO PRN (16:55)
[2023-11-01] MEDS ORDERED: BENZONATATE 200 MG CAPSULE PO PRN (16:55)
[2023-11-01] MEDS ORDERED: guaiFENesin 600 MG TABLET.ER (FP) PO PRN (16:55)
[2023-11-01] MEDS ORDERED: BENZOCAINE/MENTHOL (CHLORASEPTIC ) LOZENGE MM PRN (16:55)
[2023-11-01] MEDS ORDERED: LOPERAMIDE HCL 2 MG CAPSULE PO PRN (16:55)
[2023-11-01] MEDS ORDERED: ONDANSETRON *ODT* 4 MG TABLET SL PRN (16:55)
[2023-11-01] MEDS ORDERED: DICYCLOMINE HCL 10 MG CAPSULE PO PRN (16:55)
[2023-11-01] MEDS ORDERED: MAG HYDROX/AL HYDROX/SIMETH 30 ML UNIT-DOSE CUP PO PRN (16:55)
[2023-11-01] MEDS: chlordiazePOXIDE HCL 25 MG CAPSULE PO PRN (18:31)
[2023-11-01] MEDS: hydrOXYzine PAMOATE 25 MG CAPSULE (FP) PO PRN (18:32)
[2023-11-01] MEDS ORDERED: levETIRAcetam 500 MG TABLET (FP) PO SCH (22:00)
[2023-11-01] MEDS: chlordiazePOXIDE HCL 25 MG CAPSULE PO SCH (22:32)
[2023-11-01] MEDS: MELATONIN 5 MG TABLETS PO SCH (22:32)
[2023-11-01] MEDS: levETIRAcetam 500 MG TABLET (FP) PO SCH (22:32)
[2023-11-01] MEDS: THIAMINE 100 MG TABLET PO SCH (22:32)
[2023-11-01] MEDS: ATORVASTATIN CA 40 MG TABLET (FP) PO SCH (22:33)
[2023-11-01] MEDS: APIXABAN 5 MG TABLET PO SCH (22:33)
[2023-11-02] MEDS: METHOCARBAMOL 500 MG TABLET PO PRN (05:23)
[2023-11-02] MEDS: ACETAMINOPHEN 325 MG TABLET (FP) PO PRN (05:23)
[2023-11-02] MEDS: PRENATAL VITAMINS W/ FOLIC ACID TABLET (FP) PO SCH (10:21)
[2023-11-02] MEDS: FAMOTIDINE 20 MG TABLET PO SCH (10:22)
[2023-11-02] MEDS: FOLIC ACID 1 MG TABLET (FP) PO SCH (10:22)
[2023-11-02] MEDS: lamoTRIgine 100 MG TABLET PO SCH (10:30)
[2023-11-02 11:49] LABS: HEMATOCRIT 36.2 % (35.4-49); HEMOGLOBIN 12.2 GM/dL (11.7-16.9); MCH 30.8 pg (25.7-33.7); MCHC 33.7 g/dl (32.0-35.9); MEAN CELL VOLUME 91.2 fl (80-96); MEAN PLT VOLUME 7.3 fl (7.5-11.1); PLATELET COUNT 293 10^3/uL (134-434); RBC 3.97 M/mm3 (4.00-5.60); RDW 14.3 % (11.9-15.9); WHITE BLOOD COUNT 4.9 K/mm3 (4.0-10.0)
[2023-11-02 12:07] LABS: CALCIUM 9.4 mg/dL (8.5-10.1)
[2023-11-02 12:08] LABS: ALBUMIN 3.3 g/dl (3.4-5.0); BLOOD UREA NITROGEN 9.4 mg/dL (7-18)
[2023-11-02 12:11] LABS: CREATININE 0.9 mg/dL (0.55-1.3)
[2023-11-02 12:13] LABS: BILIRUBIN,TOTAL 0.3 mg/dL (0.2-1); TOT PROT 6.7 g/dl (6.4-8.2)
[2023-11-02] MEDS: QUEtiapine FUMARATE 25 MG TABLET PO SCH (22:30)
[2023-11-03] MEDS: chlordiazePOXIDE HCL 25 MG CAPSULE PO SCH (05:44)
[2023-11-03] MEDS: MAGNESIUM HYDROX 2400MG/30ML ORAL SUSPENSION 30 ML CUP PO PRN (18:14)
[2023-11-04] MEDS ORDERED: chlordiazePOXIDE HCL 10 MG CAPSULE PO PRN
[2023-11-04] MEDS: chlordiazePOXIDE HCL 10 MG CAPSULE PO SCH (05:36)
[2023-11-04 06:30] VITALS: RESP 16
[2023-11-04 16:57] VITALS: BP 105/66; PULSE 80; TEMP 98
[2023-11-04] MEDS ORDERED: LIDOCAINE 5% TOPICAL PATCH TP ONE (17:36)
[2023-11-04] MEDS ORDERED: ACETAMINOPHEN 500 MG TABLET (FP) PO ONE (17:37)
[2023-11-04] MEDS ORDERED: LIDOCAINE PATCH REMOVAL MC SCH (22:00)
[2023-11-05] MEDS ORDERED: chlordiazePOXIDE HCL 10 MG CAPSULE PO SCH (05:00)
[2023-11-06] MEDS ORDERED: chlordiazePOXIDE HCL 10 MG CAPSULE PO ONE (05:00)
== END 2023-11-04 18:35 | disposition home or self-care (01) | DRG 774 ==
LOC: YASAS 15:50 → Y3N 17:24
PROVIDERS: ADMIT Allergy & Immunology; ATTEND Allergy & Immunology
PROC: HZ2ZZZZ Detoxification Services for Substance Abuse Treatment (ICD-10-PCS; principal; 2023-11-01)
DX: F10.230 Alcohol dependence with withdrawal, uncomplicated (principal); F14.20 Cocaine dependence, uncomplicated; F33.1 Major depressive disorder, recurrent, moderate; E78.5 Hyperlipidemia, unspecified; G40.909 Epilepsy, unspecified, not intractable, without status epilepticus; K21.9 Gastro-esophageal reflux disease without esophagitis; I69.854 Hemiplegia and hemiparesis following other cerebrovascular disease affecting left non-dominant side; Z86.718 Personal history of other venous thrombosis and embolism; Z86.711 Personal history of pulmonary embolism; Z79.01 Long term (current) use of anticoagulants
CPT/HCPCS: 36415; 80053; 80305; 85027; 86780; 93005; 93010

== ENCOUNTER 2024-01-27 14:53 | Inpatient (IN) | payer OTHER ==
[2024-01-27 16:54] VITALS: BMI 28.3
[2024-01-27] MEDS ORDERED: diazePAM 5 MG TABLET PO PRN (20:40)
[2024-01-27] MEDS ORDERED: MAG HYDROX/AL HYDROX/SIMETH 30 ML UNIT-DOSE CUP PO PRN (20:44)
[2024-01-27] MEDS ORDERED: BENZOCAINE/MENTHOL (CHLORASEPTIC ) LOZENGE MM PRN (20:44)
[2024-01-27] MEDS ORDERED: LOPERAMIDE HCL 2 MG CAPSULE PO PRN (20:44)
[2024-01-27] MEDS ORDERED: DICYCLOMINE HCL 10 MG CAPSULE PO PRN (20:44)
[2024-01-27] MEDS ORDERED: BENZONATATE 200 MG CAPSULE PO PRN (20:44)
[2024-01-27] MEDS ORDERED: METHOCARBAMOL 500 MG TABLET PO PRN (20:44)
[2024-01-27] MEDS ORDERED: guaiFENesin 600 MG TABLET.ER (FP) PO PRN (20:44)
[2024-01-27] MEDS ORDERED: P-EPHED 60MG/TRIPROLIDI 2.5MG TABLET PO PRN (20:44)
[2024-01-27] MEDS ORDERED: POLYETHYLENE GLYCOL (HEALTHYLAX) 3350 17 GM PACKET PO PRN (20:44)
[2024-01-27] MEDS ORDERED: ONDANSETRON *ODT* 4 MG TABLET SL PRN (20:44)
[2024-01-27] MEDS ORDERED: MAGNESIUM HYDROX 2400MG/30ML ORAL SUSPENSION 30 ML CUP PO PRN (20:44)
[2024-01-27] MEDS: MELATONIN 5 MG TABLETS PO SCH (22:34)
[2024-01-27] MEDS: APIXABAN 5 MG TABLET PO SCH (22:34)
[2024-01-27] MEDS: levETIRAcetam 500 MG TABLET (FP) PO SCH (22:34)
[2024-01-27] MEDS: ATORVASTATIN CA 40 MG TABLET (FP) PO SCH (22:34)
[2024-01-27] MEDS: THIAMINE 100 MG TABLET PO SCH (22:34)
[2024-01-27] MEDS: ACETAMINOPHEN 325 MG TABLET (FP) PO PRN (22:35)
[2024-01-27] MEDS: diazePAM 5 MG TABLET PO SCH (22:35)
[2024-01-28] MEDS: diazePAM 5 MG TABLET PO SCH (05:57)
[2024-01-28] MEDS ORDERED: chlordiazePOXIDE HCL 25 MG CAPSULE PO PRN (09:16)
[2024-01-28] MEDS: PRENATAL VITAMINS W/ FOLIC ACID TABLET (FP) PO SCH (09:34)
[2024-01-28] MEDS: FOLIC ACID 1 MG TABLET (FP) PO SCH (09:34)
[2024-01-28] MEDS: FAMOTIDINE 20 MG TABLET PO SCH (09:34)
[2024-01-28] MEDS: lamoTRIgine 100 MG TABLET PO SCH (10:14)
[2024-01-28] MEDS: chlordiazePOXIDE HCL 25 MG CAPSULE PO SCH (10:14)
[2024-01-28 11:33] LABS: HEMATOCRIT 42.4 % (35.4-49); HEMOGLOBIN 14.4 GM/dL (11.7-16.9); MCH 31.1 pg (25.7-33.7); MEAN CELL VOLUME 91.6 fl (80-96); MEAN PLT VOLUME 7.6 fl (7.5-11.1); PLATELET COUNT 283 10^3/uL (134-434); RBC 4.63 M/mm3 (4.00-5.60); RDW 13.1 % (11.9-15.9); WHITE BLOOD COUNT 4.1 K/mm3 (4.0-10.0)
[2024-01-28 11:46] LABS: POTASSIUM 4.2 mmol/L (3.5-5.1)
[2024-01-28 11:57] LABS: ALBUMIN 4.2 g/dl (3.4-5.0); BLOOD UREA NITROGEN 7.8 mg/dL (7-18)
[2024-01-28 11:59] LABS: BILIRUBIN,TOTAL 0.4 mg/dL (0.2-1); CALCIUM 9.7 mg/dL (8.5-10.1); TOT PROT 7.6 g/dl (6.4-8.2)
[2024-01-28 12:00] LABS: CREATININE 0.9 mg/dL (0.55-1.3)
[2024-01-28] MEDS: QUEtiapine FUMARATE 25 MG TABLET PO SCH (22:30)
[2024-01-29] MEDS: chlordiazePOXIDE HCL 10 MG CAPSULE PO SCH (05:25)
[2024-01-29] MEDS ORDERED: diazePAM 5 MG TABLET PO SCH (06:00)
[2024-01-30] MEDS: chlordiazePOXIDE HCL 10 MG CAPSULE PO SCH (05:49)
[2024-01-30] MEDS ORDERED: diazePAM 5 MG TABLET PO ONE (06:00)
[2024-01-30 12:48] VITALS: BP 118/67; PULSE 68; RESP 16; TEMP 98.4
[2024-01-31] MEDS ORDERED: chlordiazePOXIDE HCL 10 MG CAPSULE PO PRN
[2024-01-31] MEDS ORDERED: chlordiazePOXIDE HCL 10 MG CAPSULE PO ONE (05:00)
== END 2024-01-30 15:20 | disposition home or self-care (01) | DRG 774 ==
LOC: YASAS 14:53 → Y3N 21:18
PROVIDERS: ADMIT Allergy & Immunology; ATTEND Psychiatry & Neurology Pain Medicine
PROC: HZ2ZZZZ Detoxification Services for Substance Abuse Treatment (ICD-10-PCS; principal; 2024-01-27)
DX: F10.230 Alcohol dependence with withdrawal, uncomplicated (principal); F10.282 Alcohol dependence with alcohol-induced sleep disorder; F10.280 Alcohol dependence with alcohol-induced anxiety disorder; F14.20 Cocaine dependence, uncomplicated; F41.9 Anxiety disorder, unspecified; F32.A Depression, unspecified; K21.9 Gastro-esophageal reflux disease without esophagitis; E78.5 Hyperlipidemia, unspecified; G40.909 Epilepsy, unspecified, not intractable, without status epilepticus; R00.0 Tachycardia, unspecified; Z62.810 Personal history of physical and sexual abuse in childhood; Z86.73 Personal history of transient ischemic attack (TIA), and cerebral infarction without residual deficits; Z95.820 Peripheral vascular angioplasty status with implants and grafts; Z86.718 Personal history of other venous thrombosis and embolism; Z86.711 Personal history of pulmonary embolism; Z79.01 Long term (current) use of anticoagulants; Z56.0 Unemployment, unspecified
CPT/HCPCS: 36415; 80053; 80305; 80307; 85027

== ENCOUNTER 2024-03-24 16:37 | Inpatient (IN) | payer OTHER ==
[2024-03-24 18:17] VITALS: BMI 27.6
[2024-03-24] MEDS ORDERED: ONDANSETRON *ODT* 4 MG TABLET SL PRN (20:39)
[2024-03-24] MEDS ORDERED: MAGNESIUM HYDROX 2400MG/30ML ORAL SUSPENSION 30 ML CUP PO PRN (20:39)
[2024-03-24] MEDS ORDERED: DICYCLOMINE HCL 10 MG CAPSULE PO PRN (20:39)
[2024-03-24] MEDS ORDERED: IBUPROFEN 600 MG TABLET (FP) PO PRN (20:39)
[2024-03-24] MEDS ORDERED: BENZOCAINE/MENTHOL (CHLORASEPTIC ) LOZENGE MM PRN (20:39)
[2024-03-24] MEDS ORDERED: guaiFENesin 600 MG TABLET.ER (FP) PO PRN (20:39)
[2024-03-24] MEDS ORDERED: BENZONATATE 200 MG CAPSULE PO PRN (20:39)
[2024-03-24] MEDS ORDERED: LOPERAMIDE HCL 2 MG CAPSULE PO PRN (20:39)
[2024-03-24] MEDS ORDERED: BISMUTH SUBSALICYLATE 524 MG/30 ML PO PRN (20:39)
[2024-03-24] MEDS ORDERED: IBUPROFEN 400 MG TABLET (FP) PO PRN (20:39)
[2024-03-24] MEDS ORDERED: POLYETHYLENE GLYCOL (HEALTHYLAX) 3350 17 GM PACKET PO PRN (20:39)
[2024-03-24] MEDS ORDERED: MAG HYDROX/AL HYDROX/SIMETH 30 ML UNIT-DOSE CUP PO PRN (20:39)
[2024-03-24] MEDS ORDERED: NALOXONE (NARCAN) HCL 4 MG/0.1 ML SPRAY NS PRN (20:39)
[2024-03-24] MEDS ORDERED: hydrOXYzine PAMOATE 25 MG CAPSULE (FP) PO PRN (20:39)
[2024-03-24] MEDS: chlordiazePOXIDE HCL 25 MG CAPSULE PO SCH (22:07)
[2024-03-24] MEDS: MELATONIN 5 MG TABLETS PO SCH (22:08)
[2024-03-24] MEDS: THIAMINE 100 MG TABLET PO SCH (22:08)
[2024-03-25] MEDS: PRENATAL VITAMINS W/ FOLIC ACID TABLET (FP) PO SCH (09:10)
[2024-03-25] MEDS: levETIRAcetam 250 MG TABLET PO SCH (10:24)
[2024-03-25] MEDS: FAMOTIDINE 20 MG TABLET PO SCH (10:24)
[2024-03-25] MEDS: APIXABAN 5 MG TABLET PO SCH (10:24)
[2024-03-25] MEDS: ATORVASTATIN CA 40 MG TABLET (FP) PO SCH (10:25)
[2024-03-25] MEDS: lamoTRIgine 25 MG TABLET PO SCH (10:25)
[2024-03-25] MEDS: ACETAMINOPHEN 325 MG TABLET (FP) PO PRN (10:29)
[2024-03-25 14:37] LABS: HEMATOCRIT 40.5 % (35.4-49); HEMOGLOBIN 13.8 GM/dL (11.7-16.9); MCH 31.6 pg (25.7-33.7); MCHC 34.1 g/dl (32.0-35.9); MEAN CELL VOLUME 92.7 fl (80-96); MEAN PLT VOLUME 7.4 fl (7.5-11.1); PLATELET COUNT 298 10^3/uL (134-434); RBC 4.37 M/mm3 (4.00-5.60); RDW 13.9 % (11.9-15.9); WHITE BLOOD COUNT 4.3 K/mm3 (4.0-10.0)
[2024-03-25 14:51] LABS: POTASSIUM 4.3 mmol/L (3.5-5.1)
[2024-03-25 14:53] LABS: CALCIUM 9.3 mg/dL (8.5-10.1)
[2024-03-25 14:54] LABS: ALBUMIN 3.8 g/dl (3.4-5.0); BLOOD UREA NITROGEN 10.7 mg/dL (7-18)
[2024-03-25 14:57] LABS: CREATININE 0.8 mg/dL (0.55-1.3)
[2024-03-25 14:58] LABS: BILIRUBIN,TOTAL 0.5 mg/dL (0.2-1); TOT PROT 7.2 g/dl (6.4-8.2)
[2024-03-25] MEDS: QUEtiapine FUMARATE 25 MG TABLET PO SCH (22:09)
[2024-03-26] MEDS: chlordiazePOXIDE HCL 25 MG CAPSULE PO SCH (05:43)
[2024-03-26] MEDS: chlordiazePOXIDE HCL 25 MG CAPSULE PO PRN (18:11)
[2024-03-26] MEDS: METHOCARBAMOL 500 MG TABLET PO PRN (22:11)
[2024-03-27] MEDS: chlordiazePOXIDE HCL 10 MG CAPSULE PO SCH (05:32)
[2024-03-27] MEDS: chlordiazePOXIDE HCL 10 MG CAPSULE PO PRN (18:07)
[2024-03-28] MEDS: chlordiazePOXIDE HCL 10 MG CAPSULE PO SCH (05:39)
[2024-03-29] MEDS: chlordiazePOXIDE HCL 10 MG CAPSULE PO ONE (05:27)
[2024-03-29 06:15] VITALS: RESP 16; TEMP 97.7
[2024-03-29 09:26] VITALS: BP 111/67; PULSE 93
[2024-03-29] MEDS: NALOXONE (NYS OPIOID OVERDOSE PROGRAM) 4 MG/0.1 ML SPRAY NS PRN (10:10)
== END 2024-03-29 10:15 | disposition home or self-care (01) | DRG 774 ==
LOC: YASAS 16:37 → Y3N 20:40
PROVIDERS: ADMIT Allergy & Immunology; ATTEND Surgery
PROC: HZ2ZZZZ Detoxification Services for Substance Abuse Treatment (ICD-10-PCS; principal; 2024-03-24)
DX: F10.230 Alcohol dependence with withdrawal, uncomplicated (principal); F14.10 Cocaine abuse, uncomplicated; F10.282 Alcohol dependence with alcohol-induced sleep disorder; F10.24 Alcohol dependence with alcohol-induced mood disorder; F19.24 Other psychoactive substance dependence with psychoactive substance-induced mood disorder; F32.A Depression, unspecified; F41.9 Anxiety disorder, unspecified; E78.5 Hyperlipidemia, unspecified; G40.909 Epilepsy, unspecified, not intractable, without status epilepticus; K21.9 Gastro-esophageal reflux disease without esophagitis; Z86.711 Personal history of pulmonary embolism; Z79.01 Long term (current) use of anticoagulants; Z86.718 Personal history of other venous thrombosis and embolism; Z86.73 Personal history of transient ischemic attack (TIA), and cerebral infarction without residual deficits; Z62.810 Personal history of physical and sexual abuse in childhood; Z87.891 Personal history of nicotine dependence
CPT/HCPCS: 36415; 80053; 80305; 80307; 85027; 86780; 93005; 93010

== ENCOUNTER 2024-04-06 18:05 | Inpatient (IN) | payer OTHER ==
[2024-04-06 18:53] VITALS: BMI 21.7
[2024-04-06] MEDS ORDERED: MAG HYDROX/AL HYDROX/SIMETH 30 ML UNIT-DOSE CUP PO PRN (19:43)
[2024-04-06] MEDS ORDERED: BENZOCAINE/MENTHOL (CHLORASEPTIC ) LOZENGE MM PRN (19:43)
[2024-04-06] MEDS ORDERED: BENZONATATE 200 MG CAPSULE PO PRN (19:43)
[2024-04-06] MEDS ORDERED: LOPERAMIDE HCL 2 MG CAPSULE PO PRN (19:43)
[2024-04-06] MEDS ORDERED: IBUPROFEN 400 MG TABLET (FP) PO PRN (19:43)
[2024-04-06] MEDS ORDERED: guaiFENesin 600 MG TABLET.ER (FP) PO PRN (19:43)
[2024-04-06] MEDS ORDERED: NALOXONE (NARCAN) HCL 4 MG/0.1 ML SPRAY NS PRN (19:43)
[2024-04-06] MEDS ORDERED: POLYETHYLENE GLYCOL (HEALTHYLAX) 3350 17 GM PACKET PO PRN (19:43)
[2024-04-06] MEDS ORDERED: ACETAMINOPHEN 325 MG TABLET (FP) PO PRN (19:43)
[2024-04-06] MEDS ORDERED: IBUPROFEN 600 MG TABLET (FP) PO PRN (19:43)
[2024-04-06] MEDS: THIAMINE 100 MG TABLET PO SCH (21:38)
[2024-04-06] MEDS: MELATONIN 5 MG TABLETS PO SCH (21:38)
[2024-04-07] MEDS: lamoTRIgine 25 MG TABLET PO SCH (11:57)
[2024-04-07] MEDS: PRENATAL VITAMINS W/ FOLIC ACID TABLET (FP) PO SCH (11:57)
[2024-04-07 12:22] LABS: EPI CELLS 16 /uL (0-25.1); HYALINE CASTS 10 /uL (0-3.1); PH,URINE 5.5 (5.0-8.0); URINE APPEARANCE CLOUDY; URINE BACTERIA 167 /uL (0-1359); URINE BILIRUBIN NEGATIVE (NEGATIVE); URINE COLOR YELLOW; URINE GLUCOSE (UA) NEGATIVE (NEGATIVE); URINE KETONE NEGATIVE (NEGATIVE); URINE LEUK ESTERASE 2+ (NEGATIVE); URINE NITRITE NEGATIVE (NEGATIVE); URINE PROTEIN NEGATIVE (NEGATIVE); URINE RBC 33 /uL (0-23.9); URINE UROBILINOGEN 0.2 mg/dL (0.2-1.0); URINE WBC 500 /uL (0-25.8)
[2024-04-07] MEDS: APIXABAN 5 MG TABLET PO SCH (14:51)
[2024-04-07 15:23] LABS: HEMATOCRIT 41.4 % (35.4-49); HEMOGLOBIN 13.9 GM/dL (11.7-16.9); MCH 30.9 pg (25.7-33.7); MCHC 33.7 g/dl (32.0-35.9); MEAN CELL VOLUME 91.7 fl (80-96); MEAN PLT VOLUME 7.3 fl (7.5-11.1); PLATELET COUNT 325 10^3/uL (134-434); RBC 4.51 M/mm3 (4.00-5.60); RDW 14.8 % (11.9-15.9)
[2024-04-07 15:25] LABS: CHLORIDE 106 mmol/L (98-107); POTASSIUM 4.2 mmol/L (3.5-5.1); SODIUM 138 mmol/L (136-145)
[2024-04-07 15:28] LABS: ALBUMIN 3.9 g/dl (3.4-5.0); ANION GAP 6 mmol/L (4-13); BLOOD UREA NITROGEN 10.4 mg/dL (7-18); CALCIUM 8.9 mg/dL (8.5-10.1); CO2 25 mmol/L (21-32); GLUCOSE,RANDOM 83 mg/dL (74-106)
[2024-04-07 15:31] LABS: CREATININE 0.9 mg/dL (0.55-1.3)
[2024-04-07 15:32] LABS: SGOT/AST 21 U/L (15-37); SGPT/ALT 25 U/L (13-61)
[2024-04-07 15:33] LABS: BILIRUBIN,TOTAL 0.6 mg/dL (0.2-1); TOT PROT 7.6 g/dl (6.4-8.2)
[2024-04-07 15:34] LABS: ALK PHOS 97 U/L (45-117)
[2024-04-07] MEDS: levETIRAcetam XR 750 MG TAB PO SCH (16:03)
[2024-04-07] MEDS: hydrOXYzine PAMOATE 25 MG CAPSULE (FP) PO PRN (16:03)
[2024-04-07] MEDS: QUEtiapine FUMARATE 25 MG TABLET PO SCH (21:26)
[2024-04-17] MEDS: MAGNESIUM HYDROX 2400MG/30ML ORAL SUSPENSION 30 ML CUP PO PRN (21:11)
[2024-04-21] MEDS: BACLOFEN 10 MG TABLET (FP) PO SCH (21:03)
[2024-04-22] MEDS: NALTREXONE HCL 50 MG TABLET PO ONE (10:01)
[2024-04-23] MEDS: NALTREXONE HCL 50 MG TABLET PO SCH (09:52)
[2024-05-02 06:42] VITALS: BP 109/65; PULSE 72; RESP 17; TEMP 97.5
[2024-05-02] MEDS: NALOXONE (NYS OPIOID OVERDOSE PROGRAM) 4 MG/0.1 ML SPRAY NS PRN (08:57)
[2024-05-02] MEDS: NALOXONE (NYS OPIOID OVERDOSE PROGRAM) 4 MG/0.1 ML SPRAY NS SCH (09:13)
== END 2024-05-02 09:41 | disposition home or self-care (01) | DRG 772 ==
LOC: YASAS 18:05 → Y3W 21:14
PROVIDERS: ADMIT Allergy & Immunology; ATTEND Psychiatry & Neurology Pain Medicine
PROC: HZ42ZZZ Group Counseling for Substance Abuse Treatment, Cognitive-Behavioral (ICD-10-PCS; principal; 2024-04-06)
DX: F10.20 Alcohol dependence, uncomplicated (principal); F14.20 Cocaine dependence, uncomplicated; F10.282 Alcohol dependence with alcohol-induced sleep disorder; F41.9 Anxiety disorder, unspecified; F32.9 Major depressive disorder, single episode, unspecified; G40.909 Epilepsy, unspecified, not intractable, without status epilepticus; E78.5 Hyperlipidemia, unspecified; K21.9 Gastro-esophageal reflux disease without esophagitis; Z91.81 History of falling; I69.854 Hemiplegia and hemiparesis following other cerebrovascular disease affecting left non-dominant side; Z86.718 Personal history of other venous thrombosis and embolism; Z79.01 Long term (current) use of anticoagulants; Z86.711 Personal history of pulmonary embolism
CPT/HCPCS: 36415; 80053; 80305; 80307; 81003; 85027; 86780; 93005; 93010; J0475

== ENCOUNTER 2024-08-09 14:34 | Inpatient (IN) | payer OTHER ==
[2024-08-09 15:00] VITALS: BMI 25.6
[2024-08-09] MEDS ORDERED: LOPERAMIDE HCL 2 MG CAPSULE PO PRN (15:39)
[2024-08-09] MEDS ORDERED: ONDANSETRON *ODT* 4 MG TABLET SL PRN (15:39)
[2024-08-09] MEDS ORDERED: MAG HYDROX/AL HYDROX/SIMETH 30 ML UNIT-DOSE CUP PO PRN (15:39)
[2024-08-09] MEDS ORDERED: NALOXONE (NARCAN) HCL 4 MG/0.1 ML SPRAY NS PRN (15:39)
[2024-08-09] MEDS ORDERED: METHOCARBAMOL 500 MG TABLET PO PRN (15:39)
[2024-08-09] MEDS ORDERED: POLYETHYLENE GLYCOL (HEALTHYLAX) 3350 17 GM PACKET PO PRN (15:39)
[2024-08-09] MEDS ORDERED: BENZOCAINE/MENTHOL (CHLORASEPTIC ) LOZENGE MM PRN (15:39)
[2024-08-09] MEDS ORDERED: guaiFENesin 600 MG TABLET.ER (FP) PO PRN (15:39)
[2024-08-09] MEDS ORDERED: BENZONATATE 200 MG CAPSULE PO PRN (15:39)
[2024-08-09] MEDS ORDERED: DICYCLOMINE HCL 10 MG CAPSULE PO PRN (15:39)
[2024-08-09] MEDS ORDERED: ACETAMINOPHEN 325 MG TABLET (FP) PO PRN (15:39)
[2024-08-09] MEDS ORDERED: chlordiazePOXIDE HCL 25 MG CAPSULE ONE (18:07)
[2024-08-09] MEDS: chlordiazePOXIDE HCL 25 MG CAPSULE PO SCH (18:10)
[2024-08-09] MEDS: APIXABAN 5 MG TABLET PO SCH (22:22)
[2024-08-09] MEDS: MELATONIN 5 MG TABLETS PO SCH (22:23)
[2024-08-09] MEDS: THIAMINE 100 MG TABLET PO SCH (22:23)
[2024-08-09] MEDS: levETIRAcetam XR 750 MG TAB PO SCH (22:23)
[2024-08-10] MEDS: PRENATAL VITAMINS W/ FOLIC ACID TABLET (FP) PO SCH (10:04)
[2024-08-10 12:20] LABS: HEMATOCRIT 41.8 % (35.4-49); HEMOGLOBIN 13.9 GM/dL (11.7-16.9); MCH 30.2 pg (25.7-33.7); MCHC 33.3 g/dl (32.0-35.9); MEAN CELL VOLUME 90.6 fl (80-96); MEAN PLT VOLUME 7.3 fl (7.5-11.1); PLATELET COUNT 288 10^3/uL (134-434); RBC 4.61 M/mm3 (4.00-5.60)
[2024-08-10 12:30] LABS: BLOOD UREA NITROGEN 10.8 mg/dL (7-18); CALCIUM 9.3 mg/dL (8.5-10.1)
[2024-08-10 12:35] LABS: BILIRUBIN,TOTAL 1.4 mg/dL (0.2-1); TOT PROT 7.5 g/dl (6.4-8.2)
[2024-08-10 13:35] LABS: HIV INTERPRETATION NEGATIVE (NEGATIVE)
[2024-08-10] MEDS: QUEtiapine FUMARATE 25 MG TABLET PO SCH (22:21)
[2024-08-11] MEDS: MAGNESIUM HYDROX 2400MG/30ML ORAL SUSPENSION 30 ML CUP PO PRN (03:55)
[2024-08-11] MEDS: chlordiazePOXIDE HCL 25 MG CAPSULE PO PRN (03:56)
[2024-08-11] MEDS: chlordiazePOXIDE HCL 25 MG CAPSULE PO SCH (04:01)
[2024-08-11 09:02] VITALS: BP 106/62; PULSE 78; RESP 17; TEMP 97.5
[2024-08-11] MEDS: lamoTRIgine 25 MG TABLET PO SCH (09:45)
[2024-08-12] MEDS ORDERED: chlordiazePOXIDE HCL 10 MG CAPSULE PO PRN
[2024-08-12] MEDS ORDERED: chlordiazePOXIDE HCL 10 MG CAPSULE PO SCH (05:00)
[2024-08-13] MEDS ORDERED: chlordiazePOXIDE HCL 10 MG CAPSULE PO SCH (05:00)
[2024-08-14] MEDS ORDERED: chlordiazePOXIDE HCL 10 MG CAPSULE PO ONE (05:00)
== END 2024-08-11 10:27 | disposition left against medical advice (07) | DRG 770 ==
LOC: YASAS 14:34 → Y3N 17:39
PROVIDERS: ADMIT Allergy & Immunology; ATTEND Allergy & Immunology
PROC: HZ2ZZZZ Detoxification Services for Substance Abuse Treatment (ICD-10-PCS; principal; 2024-08-09)
DX: F10.230 Alcohol dependence with withdrawal, uncomplicated (principal); F14.20 Cocaine dependence, uncomplicated; F32.A Depression, unspecified; F41.9 Anxiety disorder, unspecified; F51.01 Primary insomnia; E78.2 Mixed hyperlipidemia; G40.909 Epilepsy, unspecified, not intractable, without status epilepticus; K21.9 Gastro-esophageal reflux disease without esophagitis; Z62.810 Personal history of physical and sexual abuse in childhood; Z91.410 Personal history of adult physical and sexual abuse; I69.854 Hemiplegia and hemiparesis following other cerebrovascular disease affecting left non-dominant side; Z86.718 Personal history of other venous thrombosis and embolism; Z79.01 Long term (current) use of anticoagulants; Z86.711 Personal history of pulmonary embolism
CPT/HCPCS: 36415; 80053; 80305; 80307; 85027; 86780; 87389; 93005; 93010

== ENCOUNTER 2024-08-31 13:13 | Inpatient (IN) | payer OTHER ==
[2024-08-31 13:37] VITALS: BMI 27.4
[2024-08-31] MEDS ORDERED: BENZOCAINE/MENTHOL (CHLORASEPTIC ) LOZENGE MM PRN (13:46)
[2024-08-31] MEDS ORDERED: DICYCLOMINE HCL 10 MG CAPSULE PO PRN (13:46)
[2024-08-31] MEDS ORDERED: guaiFENesin 600 MG TABLET.ER (FP) PO PRN (13:46)
[2024-08-31] MEDS ORDERED: NALOXONE (NARCAN) HCL 4 MG/0.1 ML SPRAY NS PRN (13:46)
[2024-08-31] MEDS ORDERED: BENZONATATE 200 MG CAPSULE PO PRN (13:46)
[2024-08-31] MEDS ORDERED: POLYETHYLENE GLYCOL (HEALTHYLAX) 3350 17 GM PACKET PO PRN (13:46)
[2024-08-31] MEDS ORDERED: MAGNESIUM HYDROX 2400MG/30ML ORAL SUSPENSION 30 ML CUP PO PRN (13:46)
[2024-08-31] MEDS ORDERED: LOPERAMIDE HCL 2 MG CAPSULE PO PRN (13:46)
[2024-08-31] MEDS ORDERED: MAG HYDROX/AL HYDROX/SIMETH 30 ML UNIT-DOSE CUP PO PRN (13:46)
[2024-08-31] MEDS ORDERED: ACETAMINOPHEN 325 MG TABLET (FP) PO PRN (13:46)
[2024-08-31] MEDS ORDERED: ONDANSETRON *ODT* 4 MG TABLET SL PRN (13:46)
[2024-08-31] MEDS: chlordiazePOXIDE HCL 25 MG CAPSULE PO PRN (17:37)
[2024-08-31] MEDS: METHOCARBAMOL 500 MG TABLET PO PRN (17:37)
[2024-08-31] MEDS: MELATONIN 5 MG TABLETS PO SCH (22:39)
[2024-08-31] MEDS: APIXABAN 5 MG TABLET PO SCH (22:39)
[2024-08-31] MEDS: THIAMINE 100 MG TABLET PO SCH (22:39)
[2024-08-31] MEDS: chlordiazePOXIDE HCL 25 MG CAPSULE PO SCH (22:40)
[2024-08-31] MEDS: levETIRAcetam XR 750 MG TAB PO SCH (23:21)
[2024-09-01] MEDS: PRENATAL VITAMINS W/ FOLIC ACID TABLET (FP) PO SCH (10:21)
[2024-09-01 11:02] LABS: POTASSIUM 3.9 mmol/L (3.5-5.1)
[2024-09-01 11:05] LABS: CALCIUM 8.6 mg/dL (8.5-10.1)
[2024-09-01 11:06] LABS: ALBUMIN 3.4 g/dl (3.4-5.0)
[2024-09-01 11:09] LABS: BLOOD UREA NITROGEN 12.8 mg/dL (7-18); CREATININE 0.9 mg/dL (0.55-1.3)
[2024-09-01 11:10] LABS: BILIRUBIN,TOTAL 0.6 mg/dL (0.2-1); TOT PROT 6.5 g/dl (6.4-8.2)
[2024-09-01] MEDS: lamoTRIgine 25 MG TABLET PO SCH (14:23)
[2024-09-01] MEDS: QUEtiapine FUMARATE 25 MG TABLET PO SCH (21:31)
[2024-09-02] MEDS: chlordiazePOXIDE HCL 25 MG CAPSULE PO SCH (05:39)
[2024-09-02] MEDS ORDERED: NALTREXONE HCL 50 MG TABLET PO SCH (10:00)
[2024-09-03] MEDS ORDERED: chlordiazePOXIDE HCL 10 MG CAPSULE PO PRN
[2024-09-03] MEDS: chlordiazePOXIDE HCL 10 MG CAPSULE PO SCH (05:33)
[2024-09-04] MEDS: chlordiazePOXIDE HCL 10 MG CAPSULE PO SCH (05:42)
[2024-09-04] MEDS: NALTREXONE HCL 50 MG TABLET PO ONE (12:49)
[2024-09-05] MEDS: chlordiazePOXIDE HCL 10 MG CAPSULE PO ONE (05:54)
[2024-09-05 06:37] VITALS: RESP 18
[2024-09-05] MEDS: NALTREXONE HCL 50 MG TABLET PO SCH (10:02)
[2024-09-05 10:45] VITALS: BP 108/67; PULSE 67; TEMP 97.3
== END 2024-09-05 10:52 | disposition home or self-care (01) | DRG 774 ==
LOC: YASAS 13:13 → Y6N 15:10
PROVIDERS: ADMIT Allergy & Immunology; ATTEND Allergy & Immunology
PROC: HZ2ZZZZ Detoxification Services for Substance Abuse Treatment (ICD-10-PCS; principal; 2024-08-31)
DX: F10.230 Alcohol dependence with withdrawal, uncomplicated (principal); F14.20 Cocaine dependence, uncomplicated; F19.282 Other psychoactive substance dependence with psychoactive substance-induced sleep disorder; F19.280 Other psychoactive substance dependence with psychoactive substance-induced anxiety disorder; F19.24 Other psychoactive substance dependence with psychoactive substance-induced mood disorder; F41.8 Other specified anxiety disorders; F25.0 Schizoaffective disorder, bipolar type; G40.909 Epilepsy, unspecified, not intractable, without status epilepticus; I69.854 Hemiplegia and hemiparesis following other cerebrovascular disease affecting left non-dominant side; Z86.718 Personal history of other venous thrombosis and embolism; Z79.01 Long term (current) use of anticoagulants; Z86.711 Personal history of pulmonary embolism; Z62.810 Personal history of physical and sexual abuse in childhood; Z91.410 Personal history of adult physical and sexual abuse; Z63.8 Other specified problems related to primary support group; Z63.0 Problems in relationship with spouse or partner
CPT/HCPCS: 36415; 80053; 80305; 80307